=== PATIENT | female | born 1975 | race Two or more races ===

== ENCOUNTER 2021-05-05 10:55 | Outpatient (REF) | payer OTHER, SELFPAY ==
[2021-05-05 12:24] LABS: TSH reflex Free T4 6.87 uIU/mL (0.32-4.0)
[2021-05-05 13:17] LABS: Free T4 (Free Thyroxine) 0.74 ng/dL (0.71-1.85)
== END 2021-05-05 10:56 | disposition home or self-care (01) ==
LOC: HO.LAB 10:55
PROVIDERS: PCP Internal Medicine; Visit Provider Nurse Practitioner Family
DX: E03.9 Hypothyroidism, unspecified (principal); M79.7 Fibromyalgia
CPT/HCPCS: 36415; 84439; 84443

== ENCOUNTER 2021-06-07 09:25 | Outpatient (REF) | payer OTHER, SELFPAY ==
[2021-06-07 10:58] LABS: TSH reflex Free T4 2.64 uIU/mL (0.32-4.0)
== END 2021-06-07 09:26 | disposition home or self-care (01) ==
LOC: HO.LAB 09:25
PROVIDERS: Nurse Practitioner Family; PCP Internal Medicine; Visit Provider Internal Medicine
DX: E03.9 Hypothyroidism, unspecified (principal)
CPT/HCPCS: 36415; 84443

== ENCOUNTER 2021-06-17 07:59 | Outpatient (REF) | payer OTHER, SELFPAY ==
--- NOTE | ~2021-06-17 | XR_ITS ---
EXAMINATION: XR WRIST, LEFT CLINICAL INFORMATION: Pain in left wrist. COMPARISON: None TECHNIQUE: PA, lateral, and oblique views of the left wrist. FINDINGS: There is mild reduction in the first carpometacarpal joint space with periarticular spurring. Rest of carpal bones and intercarpal joint space is maintained normal. No fracture, dislocation or bony erosive changes. The distal radius and ulna appears unremarkable. XR/XR wrist LT 2V IMPRESSION: Mild degenerative changes first carpometacarpal joint.
--- NOTE | ~2021-06-17 | XR_ITS ---
EXAMINATION: XR FOOT, LEFT CLINICAL INFORMATION: Pain in left foot. COMPARISON: None TECHNIQUE: AP, lateral, and oblique views of the left foot. FINDINGS: There is hallux valgus deformity of the left 1st MTP joint. No visible acute fracture or dislocation is seen. The ankle mortise and subtalar joints are normal. There is a small retrocalcaneal spur. XR/XR foot LT 2V IMPRESSION: Small retrocalcaneal enthesophyte. No visible acute fracture or dislocation seen.
[2021-06-17 08:24] LABS: MANUAL DIFF FLAG NO
[2021-06-17 08:53] LABS: Basophils Percent Auto 0.4 % (0-2); Eosinophils Absolute Auto 0.2 X10*3/uL (0.0-0.4); Eosinophils Percent Auto 4.5 % (0-4); Hematocrit 41.2 % (37.0-47.0); Hemoglobin 13.9 g/dl (12.0-16.0); Imm Gran Abs Auto 0.01 X10*3/uL (0.00-0.03); Imm Gran Pct Auto 0.2 % (0.0-0.4); Lymphocytes Absolute Auto 1.9 X10*3/uL (1.2-4.9); Lymphocytes Percent Auto 35.5 % (20-40); Mean Corpuscular HGB Conc 33.7 g/dl (31.0-35.0); Mean Corpuscular Hemoglobin 32.3 pg (27.0-33.0); Mean Corpuscular Volume 95.6 fL (80.0-98.0); Mean Platelet Volume 10.2 fL (9.4-12.3); Monocytes Absolute Auto 0.4 X10*3/uL (0.1-1.2); Monocytes Percent Auto 6.8 % (2-11); Neutrophils Absolute Auto 2.8 x10*3/uL (2.0-8.3); Neutrophils Percent Auto 52.6 % (45-73); Platelet Count 233 X10*3/uL (160-400); Red Blood Count 4.31 X10*6/uL (4.20-5.50); White Blood Count 5.3 X10*3/uL (4.8-10.8)
[2021-06-17 09:14] LABS: Alanine Aminotransferase 18 U/L (0-31); Albumin Level 4.3 g/dL (3.5-5.0); Alkaline Phosphatase 106 U/L (39-117); Anion Gap 12 (12-20); Aspartate Amino Transferase 18 U/L (5-31); Bilirubin Total 0.7 mg/dL (0.0-1.0); Blood Urea Nitrogen 11 mg/dL (9-16); Calcium 9.6 mg/dL (8.4-10.2); Carbon Dioxide 26 mmol/L (22-29); Chloride 107 mmol/L (96-108); Cholesterol 211 mg/dL; Estimated Glomerular Filt Rate > 60; Glucose Fasting 91 mg/dL (60-99); HDL Cholesterol 45 mg/dL; LDL Cholesterol Calculated 144 mg/dl; Potassium 4.4 mmol/L (3.3-5.1); Sodium 141 mmol/L (135-145); Triglycerides 110 mg/dL
[2021-06-17 09:35] LABS: Thyroid Stimulating Hormone 3.15 uIU/mL (0.32-4.0); Vitamin D 25-OH Total 14.9 ng/mL (>30)
[2021-06-19 06:26] LABS: Thyroglobulin Antibodies <1 IU/mL (< or = 1); Thyroid Peroxidase Antibodies 1 IU/mL (<9)
== END 2021-06-17 08:00 | disposition home or self-care (01) ==
LOC: HO.XRAY 07:59
PROVIDERS: PCP Internal Medicine; Visit Provider Internal Medicine
DX: Z00.00 Encounter for general adult medical examination without abnormal findings (principal); M25.532 Pain in left wrist; M79.672 Pain in left foot; E03.9 Hypothyroidism, unspecified; D64.9 Anemia, unspecified; K92.1 Melena; E78.5 Hyperlipidemia, unspecified; E55.9 Vitamin D deficiency, unspecified
CPT/HCPCS: 36415; 73100; 73620; 80053; 80061; 82306; 84443; 85025; 86376; 86800

== ENCOUNTER 2021-06-23 15:17 | Outpatient (REF) | payer OTHER, SELFPAY ==
--- NOTE | ~2021-06-23 | MM_ITS ---
EXAMINATION: MM SCREENING DIGITAL BREAST TOMOSYNTHESIS, BILATERAL CLINICAL INFORMATION: Screening. Asymptomatic. Prior history reduction mammoplasty approximately 10 years ago. Prior [id number]-kcbrq mammography currently unavailable. Age 45. Family history breast cancer, mother. The lifetime risk of breast cancer based on the Tyrer-Cuzick Model is 24%. COMPARISON: None. TECHNIQUE: Digital breast tomosynthesis is performed in both the craniocaudal and mediolateral oblique views along with computer-aided detection (CAD). Synthesized 2D images are generated from the tomosynthesis. FINDINGS: There are scattered areas of fibroglandular density (ACR BI-RADS breast composition Category b). There is minor scarring consistent with the prior history of reduction mammoplasty. There is no significant mass or architectural abnormality. No abnormal calcifications. The axilla are unremarkable. Skin contours are unremarkable. Radiology department staff will attempt to retrieve prior ynm-jp-cgnkv mammography to allow for comparison in an addendum report. MM/MM tomosynthesis screening BI IMPRESSION: No mammographic evidence of malignancy. BI-RADS 2: Benign RECOMMENDATION: -Routine annual mammography screening. -The lifetime risk of breast cancer based on the Tyrer-Cuzick Model is 24%. Additional annual adjunct screening with breast MRI may be of benefit in women with a risk score of 20% or greater. This patient's information was entered into a reminder system with a target due date for their next mammogram.
== END 2021-06-23 15:18 | disposition home or self-care (01) ==
LOC: HO.MAMMO 15:17
PROVIDERS: PCP Internal Medicine; Visit Provider Internal Medicine
DX: Z12.31 Encounter for screening mammogram for malignant neoplasm of breast (principal)
CPT/HCPCS: 77063; 77067

== ENCOUNTER 2021-08-23 10:51 | Outpatient (REF) | payer OTHER, SELFPAY ==
[2021-08-23 12:03] LABS: Baso%MD 0.4 %; Eos%MD 4.8 %; Hematocrit 42.9 % (37.0-47.0); Hemoglobin 14.7 g/dl (12.0-16.0); IG%MD 0.3 %; Lymph%MD 34.6 %; Mean Corpuscular HGB Conc 34.3 g/dl (31.0-35.0); Mean Corpuscular Hemoglobin 31.9 pg (27.0-33.0); Mean Corpuscular Volume 93.1 fL (80.0-98.0); Mean Platelet Volume 10.2 fL (9.4-12.3); Mono%MD 6.6 %; Neut%MD 53.3 %; Platelet Count 269 X10*3/uL (160-400); Red Blood Count 4.61 X10*6/uL (4.20-5.50); White Blood Count 7.2 X10*3/uL (4.8-10.8)
[2021-08-23 13:39] LABS: Atypical Lymph Absolute Manual 0.3 x10*3/uL; Atypical Lymphs Percent Manual 4 % (0-6); Band Neutrophils Percent 1 % (3-5); Eosinophils Absolute Manual 0.2 X10*3/uL (0.0-0.4); Eosinophils Percent Manual 3 % (0-4); Lymphocytes Absolute Manual 2.7 X10*3/uL (1.2-4.9); Lymphocytes Percent Manual 38 % (20-40); Monocytes Absolute Manual 0.5 X10*3/uL (0.1-1.2); Monocytes Percent Manual 7 % (2-11); Neutrophils Absolute Manual 3.5 X10*3/uL (2.0-8.3); Neutrophils Percent Manual 47 % (45-73)
[2021-08-23 13:41] LABS: Platelet Estimate NORMAL (NORMAL); Platelet Morphology Comment NORMAL; RBC Morphology NORMAL
[2021-08-25 07:32] LABS: Immunoglobulin E 16 kU/L (<OR=114)
== END 2021-08-23 10:52 | disposition home or self-care (01) ==
LOC: HO.LAB 10:51
PROVIDERS: PCP Internal Medicine; Visit Provider Internal Medicine
DX: J45.909 Unspecified asthma, uncomplicated (principal)
CPT/HCPCS: 36415; 82785; 85007; 85027; 99202

== ENCOUNTER 2021-09-08 08:56 | Outpatient (REF) | payer OTHER, SELFPAY ==
--- NOTE | 2021-09-08 09:51 | PFT_ITS ---
FLOWS: FEV1 84% of predicted at 2.69 L. FVC 101% of predicted at 3.93 L. FEV1 to FVC ratio of 0.68. No bronchodilator response except in small to medium airways. LUNG VOLUMES: Total lung capacity 101% of predicted at 5.60 L. Residual volume 114% of predicted at 2.16 L. Slow vital capacity 95% of predicted at 3.44 L. Expiratory reserve volume 51% of predicted at 0.63 L. Diffusion capacity is normal. IMPRESSION: Mild obstructive ventilatory defect with no bronchodilator response except in small to medium airways. Decreased expiratory reserve volume suggests extrathoracic restriction likely secondary to abdominal obesity. Luis Ames MD AP/MODL / [id number]
== END 2021-09-08 08:57 | disposition home or self-care (01) ==
LOC: HO.RESP 08:56
PROVIDERS: PCP Internal Medicine; Visit Provider Internal Medicine
DX: J45.909 Unspecified asthma, uncomplicated (principal)
CPT/HCPCS: 94060; 94727; 94729

== ENCOUNTER → 2021-09-21 11:10 | Outpatient (BNVA) | payer OTHER, SELFPAY | PROVIDERS: PCP Internal Medicine; Visit Provider Internal Medicine | DX: J45.909 Unspecified asthma, uncomplicated (principal) | CPT/HCPCS: 99212 ==

== ENCOUNTER 2021-09-29 09:30 | Outpatient (REF) | payer OTHER, SELFPAY ==
[2021-09-29 12:14] LABS: Alanine Aminotransferase 19 U/L (0-31); Albumin Level 4.6 g/dL (3.5-5.0); Alkaline Phosphatase 99 U/L (39-117); Anion Gap 11 (12-20); Aspartate Amino Transferase 18 U/L (5-31); Bilirubin Total 0.6 mg/dL (0.0-1.0); Blood Urea Nitrogen 11 mg/dL (9-16); Calcium 9.6 mg/dL (8.4-10.2); Carbon Dioxide 28 mmol/L (22-29); Chloride 106 mmol/L (96-108); Estimated Glomerular Filt Rate > 60; Glucose Random 86 mg/dL (60-115); Potassium 4.3 mmol/L (3.3-5.1); Sodium 141 mmol/L (135-145); Total Protein 7.3 g/dL (6.5-8.0)
== END 2021-09-29 09:31 | disposition home or self-care (01) ==
LOC: HO.WFDLDS 09:30
PROVIDERS: Visit Provider Physician Assistant
DX: R10.9 Unspecified abdominal pain (principal); K92.1 Melena; K63.5 Polyp of colon
CPT/HCPCS: 36415; 80053; 99202; 99212

== ENCOUNTER 2021-10-14 12:50 | Outpatient (REF) | payer OTHER, SELFPAY ==
--- NOTE | ~2021-10-14 | CT_ITS ---
EXAMINATION: CT ABDOMEN AND PELVIS WITH CONTRAST CLINICAL INFORMATION: Unspecified abdominal pain. COMPARISON: None TECHNIQUE: Multidetector volumetric images were obtained from the superior aspect of the liver through the pubic symphysis following administration 85 mL of Omnipaque 350 intravenous contrast. Sagittal and coronal reformatted images were obtained on the technologist's workstation. Oral contrast: No This CT examination was performed using dose optimization techniques as appropriate, variously including the following: *Automated exposure control *Adjustment of mA and/or kV according to patient size (this includes techniques or standardized protocols for targeted exams where dose is matched to indication/reason for exam; i.e. extremities or head) *Use of iterative reconstruction technique DLP: 608 mGy-cm FINDINGS: LUNG BASES: There is a small left lower lobe pulmonary cyst. Minimal scarring or atelectasis in the lingula. The heart size is normal. LIVER, GALLBLADDER, AND BILIARY TREE: The liver is normal in size, shape, and attenuation. No focal hepatic lesion or biliary ductal dilatation is present. The gallbladder has been surgically removed. PANCREAS: Unremarkable. SPLEEN: Unremarkable. ADRENAL GLANDS: Unremarkable. KIDNEYS AND URETERS: The kidneys are normal in size, shape, and attenuation. No hydronephrosis, hydroureter, or calculi are seen. No perinephric stranding. BLADDER: Unremarkable. GASTROINTESTINAL TRACT: There is moderate stool and gas seen throughout the colon without distention. Oral contrast opacified small bowel loops are normal. The appendix is normal. No inflammatory changes or free fluid are seen. ABDOMINAL WALL: There is a small umbilical hernia containing fat. LYMPH NODES: Normal. VASCULAR: Unremarkable. PELVIC VISCERA: The uterus is not visualized, likely atrophied or removed. No adnexal mass or free fluid is seen. OSSEOUS STRUCTURES: There are bilateral pedicular screws at the L5 and S1 vertebrae with interconnecting rods for an L4 through S1 disc fusion. No aggressive lytic or sclerotic process is seen in lumbar spine or the lower dorsal spine. CT/CT abdomen pelvis w con IMPRESSION: No acute intra-abdominal process seen. Lnnp-dv-owehdako constipation. Gallbladder has been removed. Fleischner guidelines were followed.
[2021-10-14] MEDS: iohexoL 350 MG/ML 100 ML INFUS..BTL IV (15:45)
[2021-10-14] MEDS: Barium Sulfate Oral (Vanilla) 450 ML ORAL.SUSP 900 ML PO (15:45)
== END 2021-10-14 12:51 | disposition home or self-care (01) ==
LOC: HO.CT 12:50
PROVIDERS: PCP Internal Medicine; Visit Provider Nurse Practitioner
DX: R10.9 Unspecified abdominal pain (principal); K92.1 Melena; K63.5 Polyp of colon
CPT/HCPCS: 74177; Q9967

== ENCOUNTER → 2021-10-27 11:34 | Outpatient (BNVA) | payer OTHER, SELFPAY | PROVIDERS: PCP Internal Medicine; Visit Provider Physician Assistant | DX: R14.0 Abdominal distension (gaseous) (principal); K52.9 Noninfective gastroenteritis and colitis, unspecified; K21.9 Gastro-esophageal reflux disease without esophagitis | CPT/HCPCS: 99212 ==

== ENCOUNTER 2021-11-11 09:58 | Outpatient (REF) | payer OTHER, SELFPAY ==
[2021-11-11 12:57] LABS: Thyroid Stimulating Hormone 3.34 uIU/mL (0.32-4.0); Vitamin D 25-OH Total 30.3 ng/mL (>30)
[2021-11-12 16:51] LABS: H Pylori Breath Test Positive (Negative)
== END 2021-11-11 09:59 | disposition home or self-care (01) ==
LOC: HO.LAB 09:58
PROVIDERS: PCP Internal Medicine; Referring Provider Internal Medicine; Visit Provider Physician Assistant
DX: A04.8 Other specified bacterial intestinal infections (principal); E03.9 Hypothyroidism, unspecified; E55.9 Vitamin D deficiency, unspecified
CPT/HCPCS: 36415; 82306; 83013; 84443; 99211

== ENCOUNTER → 2021-11-18 15:55 | Outpatient (BNVA) | payer OTHER, SELFPAY | PROVIDERS: PCP Internal Medicine; Visit Provider Surgery | DX: K42.9 Umbilical hernia without obstruction or gangrene (principal) | CPT/HCPCS: 99202 ==

== ENCOUNTER 2021-12-07 05:51 | Day surgery (SDC) | payer OTHER, SELFPAY ==
[2021-12-01 17:05] VITALS: BMI 36.5
--- NOTE | 2021-12-06 10:36 | HO.ANESPROP2 ---
Documented by User: Gail Welch NP 12/06/21 10:38 HPI - Anesthesia Eval Consult details Narrative: 46yo F for Hernia Repair Umbilical, possible mesh PMFSH Active Problems Active Problems: All Active Problems (Updated 10/27/21 @ 13:54 by Sharmin Gutierrez MD) Umbilical hernia (Acute) Acid reflux (Acute) Bloating (Acute) Chronic diarrhea (Acute) Colon polyps (Acute) Abdominal pain (Acute) Allergic rhinitis (Acute) Allergic asthma (Acute) Hypovitaminosis D (Acute) Insomnia (Acute) Left foot pain (Acute) Left wrist pain (Acute) Bloody stools (Acute) Family history of colon cancer (Acute) Colon polyps (Acute) Physical exam (Acute) Asthma, persistent not controlled (Acute) Difficulty sleeping (Acute) Anxiety and depression (Acute) Fibromyalgia (Acute) Hypothyroid (Acute) Past Medical History Medical History Bloody stools Colon polyps Family history of colon cancer Hypovitaminosis D Insomnia Left foot pain Left wrist pain Physical exam Family History Family History Father Hypothyroid Thyroid cancer Asthma Migraine Mother Breast cancer Surgical History Surgical History History of back surgery History of bilateral breast reduction surgery History of carpal tunnel surgery History of cholecystectomy History of colonoscopy History of hysterectomy Social History Social History Housing: House Alcohol intake: current Alcohol intake frequency: holidays/special occasions only Alcohol type: wine Patient Tobacco Use Status: Never used Tobacco e-Cigarette/Vaping Use: Never Used Second Hand Smoke Exposure: No Use of substances other than those prescribed or required for medical reasons: No Are you DNR?: No Advance Directives: No Advance Directives Information Provided: Yes service: No Current occupational status: unemployed Cognitive needs: No Hearing needs: No Vision needs: No Meds Allergies Allergy/AdvReac Type Severity Reaction Status Date / Time sumatriptan [From IMITREX] Allergy Intermediate rash, Verified 11/18/21 16:03 shortness of breath Exam Exam Date and Time: December 06, 2021 1036 Height,Weight and Vital Signs: Height 5 ft 7 in Weight 105.687 kg Pertinent Lab Results Pertinent Lab Results: Laboratory Tests 08/23/21 09/29/21 11:11 09:35 WBC 7.2 Hgb 14.7 Hct 42.9 Plt Count 269 Sodium 141 Potassium 4.3 Chloride 106 Carbon Dioxide 28 BUN 11 Creatinine 0.77 Narrative Narrative: PFT 09/2021 IMPRESSION:? Mild obstructive ventilatory defect with no bronchodilator response except in small to medium airways.? Decreased expiratory reserve volume suggests extrathoracic restriction likely secondary to abdominal obesity. Assessment and Plan Assessment Anesthesia Assessment: Chart Reviewed Documented by User: Dell Reeves MD 12/07/21 07:25 PMFSH Past Medical History Medical History Bloody stools Colon polyps Family history of colon cancer Hypovitaminosis D Insomnia Left foot pain Left wrist pain Physical exam Family History Family History Father Hypothyroid Thyroid cancer Asthma Migraine Mother Breast cancer Family history of problems with anesthesia: No Surgical History Surgical History History of back surgery History of bilateral breast reduction surgery History of carpal tunnel surgery History of cholecystectomy History of colonoscopy History of hysterectomy History of Problems with Anesthesia: Yes Social History Social History Housing: House Alcohol intake: current Alcohol intake frequency: holidays/special occasions only Alcohol type: wine Patient Tobacco Use Status: Never used Tobacco e-Cigarette/Vaping Use: Never Used Second Hand Smoke Exposure: No Use of substances other than those prescribed or required for medical reasons: No Are you DNR?: No Advance Directives: No Advance Directives Information Provided: Yes service: No Current occupational status: unemployed Cognitive needs: No Hearing needs: No Vision needs: No Meds Allergies Allergy/AdvReac Type Severity Reaction Status Date / Time sumatriptan [From IMITREX] Allergy Intermediate rash, Verified 11/18/21 16:03 shortness of breath Exam Airway Mallampati Class: II TM Dist: >3cm Neck ROM: Full Loose/Missing/Broken Teeth: No Heart: rrr Lungs: clear Assessment and Plan Final Anesthetic Review Family History of Problems with Anesthesia: No History of Problems with Anesthesia: Yes Anesthetic Plan Anesthetic Plan: GA Disposition: Standard PACU
[2021-12-07] VITALS (13 sets, daily range): BP systolic 107–126; BP diastolic 70–76; PULSE 66–84; RESP 16–18; TEMP 36.4–36.5; O2SAT 97–100
[2021-12-07] MEDS: Lactated Ringers 1,000 ML 100 ML IVCONT (06:31)
--- NOTE | 2021-12-07 07:08 | MHC.SHP ---
Pre-Procedural Eval Section A Date of Service: 12/07/21 The patient is an INPATIENT: No Changes since office visit: No Cold of Flu in the past 2 weeks, No New Medical Problems, No Changes in Medication and No Patient answered all questions The History & Physical has been completed within 30 days and I have reviewed it.: Yes Section B Chief Complaint: Umbilical hernia without obstruction or gangrene Allergies: Allergies Allergy/AdvReac Type Severity Reaction Status Date / Time sumatriptan [From IMITREX] Allergy Intermediate rash, Verified 11/18/21 16:03 shortness of breath Plan I have reviewed the history and physical and performed a pertinent physical examination on my patient. No changes have occurred unless specified.
--- NOTE | 2021-12-07 08:00 | W.PM.OPN ---
Operative Note Operative Note Date of Service: 12/07/21 Narrative: Preop diagnosis: Umbilical hernia Postop diagnosis : Umbilical hernia Procedure: Repair of umbilical hernia Surgeon: Yvon Brice MD advertising assistant manager: CORETTA Mcclain The patient is a 46-year-old female umbilical pain, and note of a small fat-containing umbilical hernia on CT scan. She wanted to proceed with repair of this Hernia. She understood the technique of the procedure as well as the risks, benefits, and alternatives. She was brought to the operating room placed supine under general anesthesia via endotracheal tube. The abdomen is prepped and draped in the usual sterile fashion. A surgical time-out was done. The patient received cefazolin 2 g IV preoperatively I infiltrated the planned line of incision using lidocaine 1%. I made a supraumbilical and transverse incision in a curvilinear fashion using a blade 15. This was carried down through the full-thickness of the skin and subcutaneous fat ache electrocautery. We proceeded to dissect the umbilicus as a flap off of the fascia with careful sharp dissection with electrocautery as well as Metzenbaum scissors. By doing so I was able to visualize the hernia. This was fat containing. I proceeded to gently dissect this hernia contents off of the rest of subcutaneous layer down to the fascial defect. I dssected the fine adhesions from the fascial defect until I was able to completely reduce the hernia. This hernia defect was less than 1 cm so I decided not to use a mesh. Closed this defect with a ckhawj-wa-upnai Maxon 1 stitch. I applied Dexon 3-0 sutures to tack the umbilicus to the fascia to re-create the dimple. The skin was closed with a running cuticular Dexon 4-0 stitch. The area was infiltrated with Marcaine 0.5% for postop analgesia. Dressings were applied. The procedure was then completed. The patient tolerated the procedure well. There were no immediate complications. Final counts of sponges and instruments were correct. Estimated blood loss was less than 5 cc . The patient was extubated without difficulty and transferred to the recovery room with stable vital signs.
[2021-12-07] MEDS: fentaNYL citrate/PF 100 MCG/2 ML VIAL 25 MCG IVPUSH ×4 (08:32→08:56)
[2021-12-07] MEDS: oxyCODONE HCl Immed Release 5 MG TABLET PO (08:53)
== END 2021-12-07 10:00 | disposition home or self-care (01) ==
PROVIDERS: PCP Internal Medicine; Visit Provider Surgery
PROC: (CPT 49585; principal; 2021-12-07 07:30)
DX: K42.9 Umbilical hernia without obstruction or gangrene (principal); K66.0 Peritoneal adhesions (postprocedural) (postinfection); E55.9 Vitamin D deficiency, unspecified; Z79.899 Other long term (current) drug therapy; Z88.8 Allergy status to other drugs, medicaments and biological substances; Z90.49 Acquired absence of other specified parts of digestive tract
CPT/HCPCS: 49585; J0690; J1100; J2250; J2405; J2795; J3010

== ENCOUNTER → 2021-12-20 13:32 | Outpatient (BNVA) | payer OTHER, SELFPAY | PROVIDERS: PCP Internal Medicine; Visit Provider Surgery | DX: K42.9 Umbilical hernia without obstruction or gangrene (principal); Z80.3 Family history of malignant neoplasm of breast | CPT/HCPCS: 99212 ==

== ENCOUNTER → 2022-01-20 10:46 | Outpatient (BNVA) | payer OTHER, SELFPAY | PROVIDERS: PCP Internal Medicine; Visit Provider Internal Medicine | DX: J45.909 Unspecified asthma, uncomplicated (principal); K21.9 Gastro-esophageal reflux disease without esophagitis | CPT/HCPCS: 99212 ==

== ENCOUNTER 2022-06-28 08:14 | Outpatient (REF) | payer OTHER, SELFPAY ==
--- NOTE | ~2022-06-28 | XR_ITS ---
EXAMINATION: XR WRIST, LEFT CLINICAL INFORMATION: Pain COMPARISON: Wrist radiographs 06/17/2021 TECHNIQUE: PA, lateral, and oblique views of the left wrist. FINDINGS: No acute fracture or dislocation. Moderate degenerative changes the first carpometacarpal joint with loss of joint space progressed from prior. Soft tissues are unremarkable. XR/XR wrist LT 2V IMPRESSION: 1. Moderate degenerative changes the first carpometacarpal joint with loss of joint space progressed from prior. 2. No acute fracture or dislocation.
--- NOTE | ~2022-06-28 | XR_ITS ---
EXAMINATION: XR FOOT, LEFT CLINICAL INFORMATION: Pain COMPARISON: Foot radiographs 06/17/2021 TECHNIQUE: Three views of the left foot. FINDINGS: No acute fracture or dislocation. Joint spaces are maintained. Achilles tendon enthesopathy with thickening of the Achilles tendon at the tendinous insertion which could be seen in the setting of tendinopathy. No joint effusion. XR/XR foot LT 2V IMPRESSION: Achilles tendon enthesopathy with thickening of the Achilles tendon at the tendinous insertion which could be seen in the setting of tendinopathy. MRI could be obtained for further characterization if clinically indicated.
--- NOTE | ~2022-06-28 | XR_ITS ---
EXAMINATION: XR KNEE, RIGHT CLINICAL INFORMATION: Reason for Exam M25.561 - Pain in right knee COMPARISON: None TECHNIQUE: 2 views of the knee FINDINGS: No acute fracture or dislocation. Joint spaces are maintained. No joint effusion. Soft tissues are unremarkable. XR/XR knee RT 2V IMPRESSION: * No acute osseous abnormality.
[2022-06-28 08:29] LABS: MANUAL DIFF FLAG NO
[2022-06-28 08:42] LABS: Basophils Percent Auto 0.4 % (0-2); Eosinophils Absolute Auto 0.2 X10*3/uL (0.0-0.4); Eosinophils Percent Auto 3.4 % (0-4); Hematocrit 41.4 % (37.0-47.0); Hemoglobin 14.5 g/dl (12.0-16.0); Imm Gran Abs Auto 0.01 X10*3/uL (0.00-0.03); Imm Gran Pct Auto 0.2 % (0.0-0.4); Lymphocytes Absolute Auto 1.8 X10*3/uL (1.2-4.9); Lymphocytes Percent Auto 33.3 % (20-40); Mean Corpuscular Hemoglobin 32.8 pg (27.0-33.0); Mean Corpuscular Volume 93.7 fL (80.0-98.0); Monocytes Absolute Auto 0.3 X10*3/uL (0.1-1.2); Monocytes Percent Auto 5.8 % (2-11); Neutrophils Percent Auto 56.9 % (45-73); Platelet Count 229 X10*3/uL (160-400); Red Blood Count 4.42 X10*6/uL (4.20-5.50); Red Cell Distribution Width 12.3 % (11.0-16.0); White Blood Count 5.3 X10*3/uL (4.8-10.8)
[2022-06-28 09:38] LABS: Alanine Aminotransferase 24 U/L (0-31); Albumin Level 4.6 g/dL (3.5-5.0); Alkaline Phosphatase 104 U/L (39-117); Anion Gap 12 (12-20); Aspartate Amino Transferase 23 U/L (5-31); Bilirubin Total 0.7 mg/dL (0.0-1.0); Blood Urea Nitrogen 10 mg/dL (9-16); Calcium 9.7 mg/dL (8.4-10.2); Carbon Dioxide 27 mmol/L (22-29); Chloride 107 mmol/L (96-108); Cholesterol 223 mg/dL; Estimated Glomerular Filt Rate > 60; Glucose Fasting 95 mg/dL (60-99); HDL Cholesterol 46 mg/dL; LDL Cholesterol Calculated 153 mg/dl; Potassium 4.3 mmol/L (3.3-5.1); Sodium 142 mmol/L (135-145); Total Protein 7.2 g/dL (6.5-8.0); Triglycerides 123 mg/dL
[2022-06-28 10:21] LABS: Folate 7.6 ng/mL (> or = 4.0); Thyroid Stimulating Hormone 4.06 uIU/mL (0.32-4.0); Vitamin B12 452 pg/mL (200-900); Vitamin D 25-OH Total 18.5 ng/mL (>30)
== END 2022-06-28 08:15 | disposition home or self-care (01) ==
LOC: HO.LAB 08:14
PROVIDERS: PCP Internal Medicine; Visit Provider Internal Medicine
DX: M25.532 Pain in left wrist (principal); M25.561 Pain in right knee; M79.672 Pain in left foot; E55.9 Vitamin D deficiency, unspecified; E78.5 Hyperlipidemia, unspecified; E03.9 Hypothyroidism, unspecified; D64.9 Anemia, unspecified; J45.998 Other asthma; M79.7 Fibromyalgia; E53.8 Deficiency of other specified B group vitamins
CPT/HCPCS: 36415; 73100; 73560; 73620; 80053; 80061; 82306; 82607; 82746; 84443; 85025

== ENCOUNTER 2022-07-09 10:23 | Outpatient (REF) | payer OTHER, SELFPAY ==
--- NOTE | ~2022-07-09 | MM_ITS ---
EXAMINATION: MM SCREENING DIGITAL BREAST TOMOSYNTHESIS, BILATERAL CLINICAL INFORMATION: Screening. Asymptomatic. Prior history reduction mammoplasty approximately 11 years ago. The lifetime risk of breast cancer based on the Tyrer-Cuzick Model is 13%. COMPARISON: Mammography: 06/23/2021 (new baseline) TECHNIQUE: Digital breast tomosynthesis is performed in both the craniocaudal and mediolateral oblique views along with computer-aided detection (CAD). Synthesized 2D images are generated from the tomosynthesis. FINDINGS: There are scattered areas of fibroglandular density (ACR BI-RADS breast composition Category b). Parenchymal pattern is similar to prior new baseline exam. There is minor scarring consistent with the prior history reduction mammoplasty. No interval architectural abnormality or developing density. There are no significant masses, abnormal calcifications, or other abnormalities. The axilla and skin contours are unremarkable. No significant changes. MM/MM tomosynthesis screening BI IMPRESSION: No mammographic evidence of malignancy. ASSESSMENT: BI-RADS 2: Benign RECOMMENDATION: Routine annual mammography screening. This patient's information was entered into a reminder system with a target due date for their next mammogram.
== END 2022-07-09 10:24 | disposition home or self-care (01) ==
LOC: HO.MAMMO 10:23
PROVIDERS: PCP Internal Medicine; Visit Provider Internal Medicine
DX: Z12.31 Encounter for screening mammogram for malignant neoplasm of breast (principal)
CPT/HCPCS: 77063; 77067

== ENCOUNTER 2022-07-19 09:21 | Outpatient (RCR) | payer OTHER, SELFPAY ==
--- NOTE | 2022-08-19 13:19 | MHC.OT.DC ---
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
== END 2022-08-19 13:20 | disposition home or self-care (01) ==
LOC: HO.OT 09:21
PROVIDERS: PCP Internal Medicine; Visit Provider Internal Medicine
DX: M25.532 Pain in left wrist (principal)
CPT/HCPCS: 29130; 97110; 97166; 97760

== ENCOUNTER → 2022-07-20 10:42 | Outpatient (BNVA) | payer OTHER, SELFPAY | PROVIDERS: PCP Internal Medicine; Visit Provider Internal Medicine | DX: J45.909 Unspecified asthma, uncomplicated (principal) | CPT/HCPCS: 99212 ==

== ENCOUNTER 2022-12-20 15:00 | Outpatient (AMB) | payer OTHER, SELFPAY ==
[2022-12-20 15:03] VITALS: BP 100/72; PULSE 81; O2SAT 99; BMI 35.9
--- NOTE | 2022-12-20 15:03 | MHC.PC.OV ---
Vital Signs 12/20/22 15:03 Height 5 ft 7 in Weight 229 lb BMI 35.9 BP 100/72 Blood Pressure Location Lt brachial Position Sitting Pulse 81 Pulse Source Pulse Oximeter Pulse Oximetry (%) 99 Oxygen Delivery Method Room Air Intake Visit Reasons: thyroid Intake Note: Patient here for a follow up thyroid, c/o left side head discomfort Precision Assembler Required: No Accompanied by: Self / Same As Patient Allergies sumatriptan [From IMITREX] Allergy (Intermediate, Verified 12/20/22 15:13) rash, shortness of breath morphine Adverse Reaction (Severe, Verified 12/20/22 15:13) Migraine Medication List - Last Reconciled 12/20/22 by Sharmin Gutierrez MD bismuth subsalicylate (Bismuth) 2 tabs PO QID 14 days budesonide-formoterol 160-4.5 mcg/actuation (Symbicort) 2 puffs inhalation BID bupropion HCl 150 mg PO QAM 90 days cholecalciferol (vitamin D3) 50 mcg PO DAILY 90 days cholestyramine (with sugar) 4 gram 4 grams PO BID 30 days gabapentin 600 mg PO TID 90 days levothyroxine 88 mcg PO DAILY 90 days loperamide (Imodium A-D) 2 mg PO Q6H PRN montelukast 10 mg PO DAILY omeprazole 40 mg PO DAILY trazodone 100 mg PO BEDTIME PRN 90 days Ventolin HFA 90 mcg/actuation (albuterol sulfate) 2 puffs inhalation Q6H PRN 30 days NS Tobacco use date assessed: 06/28/22 Dental Screening Dental Screen Date: 12/20/22 Did you have a dental visit in the last 12 months?: Yes Did you have a dental problem in the last 6 months where you did not have access to dental care?: No Was dental information given to patient?: Patient has dentist HPI HPI Comments History of Present Illness Details This is 47-year-old female with moderate recurrent major depression, hypothyroidism, chronic GERD and moderate asthma that comes today for follow-up on her conditions. Depression stable with bupropion. Last TSH was mildly elevated and she was supposed to repeat lab in 6 weeks which has not happen. She will repeat labs this week. GERD stable with PPIs. Asthma well controlled with longstanding inhaler. She use rescue inhaler few times a month. Complains of occasional headaches. PFSH Medical History (Updated 12/20/22 @ 15:42 by Sharmin Gutierrez MD) Family history of breast cancer Hypovitaminosis D Insomnia Left foot pain Left wrist pain Bloody stools Family history of colon cancer Colon polyps Physical exam Surgical History History of umbilical hernia repair (~12/07/21) History of cholecystectomy History of carpal tunnel surgery History of colonoscopy History of bilateral breast reduction surgery History of back surgery History of hysterectomy Family History Father Hypothyroid Thyroid cancer Asthma Migraine Mother Breast cancer Social History Housing: House Alcohol intake: current Alcohol intake frequency: holidays/special occasions only Alcohol type: wine Patient Tobacco Use Status: Never used Tobacco e-Cigarette/Vaping Use: Never Used Second Hand Smoke Exposure: No service: No Current occupational status: unemployed Cognitive needs: No Hearing needs: No Vision needs: No Questionnaire Thrive Questionnaire Date Thrive assessed: 06/28/22 ALIZA-7 AMB Questionnaire ALIZA-7 Date ALIZA - 7 assessed: 06/28/22 Source: Developed by Drs. Donn Mckeon, Rebecca Villalta, Meek Ricardo and colleagues, with an educational darrel from [employer]. Review of Systems Const All systems reviewed & are unremarkable except as noted in HPI and below Eyes Reports no additional complaints, Denies change in vision and Denies other visual disturbances Card Denies chest pain at rest, Denies chest pain with activity, Denies edema, Denies irregular heart rhythm, Denies claudication, Denies dyspnea, Denies dyspnea on exertion, Denies orthopnea, Denies paroxysmal nocturnal dyspnea and Denies slow heart rate Resp Denies cough, Denies dyspnea and Denies dyspnea on exertion GI Denies abdominal pain, Denies change in bowel habits, Denies excessive flatus, Denies nausea and Denies vomiting Denies urinary incontinence, Denies urinary hesitancy and Denies urinary urgency Musc Denies abnormal gait, Denies atrophy, Denies deformity and Denies limited range of motion Skin/Breast Denies bleeding lesions, Denies changing lesions and Denies rash Neuro Denies abnormal gait and Denies lack of coordination Physical exam (Primary Care) Vital Signs: Last Vital Signs Pulse 81 12/20/22 15:03 BP 100/72 12/20/22 15:03 Pulse Ox 99 12/20/22 15:03 Oxygen Delivery Method Room Air 12/20/22 15:03 BMI result Body Mass Index 35.9 Tobacco/Smoking Status: Tobacco use Status Tobacco use date assessed 06/28/22 12/20/22 15:06 Patient Tobacco Use Status Never used Tobacco 12/20/22 15:06 e-Cigarette/Vaping Use Never Used 12/20/22 15:06 Thrive Assessment: Date of Thrive Assessment Date Thrive assessed 06/28/22 12/20/22 15:06 Eyes General: appearance normal, both eyes and all related structures Eyelids: Yes eyelids normal Conjunctivae: conjunctivae normal Neck Neck: Yes normal visual inspection and Yes supple Resp Effort & Inspection: normal respiratory effort Auscultation: clear to auscultation bilaterally Cardio Jugular venous distension: no JVD Rate: regular rate Rhythm: regular rhythm Heart sounds: S1 normal heart sound present and S2 normal heart sound present Extrem General: Yes full ROM Office Procedures Flu Questionnaire Does the patient have a severe egg allergy?: No Immunizations flu vacc [id number] 6mos up(PF) 60 mcg(15 mcgx4)/0.5 mL IM syringe Performing Provider: Sharmin Gutierrez MD [place] [facility] [facility] [place] [facility] Documented (not given) by: MIRTHA Powell on 12/20/22 15:06 Reason Not Given: Patient Refused Assessment and Plan Assessment & Plan (1) Moderate recurrent major depression: Code(s): F33.1 - Major depressive disorder, recurrent, moderate Plan: Continue bupropion. (2) Hypothyroid: Comment: 2016 Code(s): E03.9 - Hypothyroidism, unspecified Plan: Repeat TSH. Continue levothyroxine. (3) Chronic GERD: Code(s): K21.9 - Gastro-esophageal reflux disease without esophagitis Plan: Continue PPIs. (4) Moderate asthma: Code(s): J45.909 - Unspecified asthma, uncomplicated Plan: Continue Symbicort. Orders: Orders Influenza [id number] Immunization Today Z23 - Encounter for immunization Thyroid Stimulating Hormone Today E03.9 - Hypothyroidism, unspecified Medications: Refilled gabapentin 600 mg PO TID 90 days 270 tabs 0RF M79.7 - Fibromyalgia Coding Level of Care Code Est Pt Level 4 (66930) Diagnoses Moderate recurrent major depression F33.1 Hypothyroid E03.9 Chronic GERD K21.9 Moderate asthma J45.909 Time Spent (min) 22
== END 2022-12-20 15:22 | disposition home or self-care (01) ==
PROVIDERS: PCP Internal Medicine; Visit Provider Internal Medicine
DX: E03.9 Hypothyroidism, unspecified (principal); F33.1 Major depressive disorder, recurrent, moderate; K21.9 Gastro-esophageal reflux disease without esophagitis; J45.909 Unspecified asthma, uncomplicated
CPT/HCPCS: 99214

== ENCOUNTER 2022-12-27 11:29 | Outpatient (REF) | payer OTHER, SELFPAY ==
[2022-12-27 13:50] LABS: Thyroid Stimulating Hormone 3.15 uIU/mL (0.32-4.0)
== END 2022-12-27 11:30 | disposition home or self-care (01) ==
LOC: HO.LAB 11:29
PROVIDERS: PCP Internal Medicine; Visit Provider Internal Medicine
DX: E03.9 Hypothyroidism, unspecified (principal)
CPT/HCPCS: 36415; 84443

== ENCOUNTER 2023-01-11 10:38 | Outpatient (AMB) | payer OTHER, SELFPAY ==
[2023-01-11 11:24] VITALS: BP 100/72; PULSE 76; O2SAT 99; BMI 36.2
--- NOTE | 2023-01-11 11:24 | A.OFFVIS_ITS ---
Intake Vital Signs 01/11/23 11:24 Height 5 ft 7 in Weight 231 lb BMI 36.2 BP 100/72 Blood Pressure Location Lt brachial Position Sitting Pulse 76 Pulse Source Pulse Oximeter Pulse Oximetry (%) 99 Oxygen Delivery Method Room Air Intake Visit Reasons: Asthma Intake Note: pt is here for follow up and states here breathing is not well, last night was n ot good, coughing a lot, feels like she is starting with something. 2 weeks ago, she had something and now it is starting again E Learning Manager Required: No Allergies sumatriptan [From IMITREX] Allergy (Intermediate, Verified 01/11/23 11:28) rash, shortness of breath morphine Adverse Reaction (Severe, Verified 01/11/23 11:28) Migraine Medication List - Last Reconciled 01/11/23 by Gary Schmidt MD bismuth subsalicylate (Bismuth) 2 tabs PO QID 14 days budesonide-formoterol 160-4.5 mcg/actuation (Symbicort) 2 puffs inhalation BID bupropion HCl 150 mg PO QAM 90 days cholecalciferol (vitamin D3) 50 mcg PO DAILY 90 days cholestyramine (with sugar) 4 gram 4 grams PO BID 30 days gabapentin 600 mg PO TID 90 days levothyroxine 88 mcg PO DAILY 90 days loperamide (Imodium A-D) 2 mg PO Q6H PRN montelukast 10 mg PO DAILY omeprazole 40 mg PO DAILY Ventolin HFA 90 mcg/actuation (albuterol sulfate) 2 puffs inhalation Q6H PRN NS Do you need a note to return to daycare/school/sports/work: No HPI Asthma HPI Details 47 YEARS OLD FEMALE IS A CASE OF BRONCHI AL ASTHMA, AND ALLERGIC RHINITIS. COMING OF TO 6 MONTHS FOR FOLLOW-UP. COMPLAINS OF FREQUENT BOUTS OF NASAL CONGESTION WITH INCREASED COUGH FEELING OF CHEST CONGESTION. SHE HAD A SIMILAR BOUT ABOUT 2 WEEKS AGO, AND CLAIMS THAT SINCE LAST NIGHT SHE IS HAVING THE SAME FEELING. HOWEVER SHE HAS HAD NO ACTIVE RESPIRATORY INFECTION, . SHE CAN WALK AROUND WITHOUT MUCH PROB MOHAMUD SHE IS NONSMOKER [facility] Medical History Family history of breast cancer Hypovitaminosis D Insomnia Left foot pain Left wrist pain Bloody stools Family history of colon cancer Colon polyps Physical exam Surgical History History of umbilical hernia repair (~12/07/21) History of cholecystectomy History of carpal tunnel surgery History of colonoscopy History of bilateral breast reduction surgery History of back surgery History of hysterectomy Family History Father Hypothyroid Thyroid cancer Asthma Migraine Mother Breast cancer Social History Housing: House Alcohol intake: current Alcohol intake frequency: holidays/special occasions only Alcohol type: wine Patient Tobacco Use Status: Never used Tobacco e-Cigarette/Vaping Use: Never Used Second Hand Smoke Exposure: No service: No Current occupational status: unemployed Cognitive needs: No Hearing needs: No Vision needs: No Review of Systems Const All systems reviewed & are unremarkable except as noted in HPI and below Eyes Reports no additional complaints, Denies change in vision and Reports other visual disturbances Card Reports chest pain at rest, Reports chest pain with activity, Denies edema, Denies irregular heart rhythm, Denies claudication, Reports dyspnea, Reports dyspnea on exertion, Denies orthopnea, Denies paroxysmal nocturnal dyspnea and Denies slow heart rate Resp Reports cough, Reports dyspnea, Reports dyspnea on exertion and Reports wheezing (Almost on daily basis) GI Reports no additional complaints and Reports nausea Reports no additional complaints Musc Reports no additional complaints and Reports back pain (Mild) Skin/Breast Reports system reviewed and no additional complaints, except as documented Neuro Reports no additional complaints Psych Reports no additional complaints Aller/Immun Reports wheezing (Almost on daily basis) Physical Exam Vital Signs: Last Vital Signs Pulse 76 01/11/23 11:24 BP 100/72 01/11/23 11:24 Pulse Ox 99 01/11/23 11:24 Oxygen Delivery Method Room Air 01/11/23 11:24 BMI result Body Mass Index 36.2 Const General: healthy appearing, comfortable, no acute distress, alert and awake Orientation/consciousness: patient oriented x3 HEENT Head: Yes normal to inspection General nose exam: No nasal polyps present, No nasal discharge present and Other nasal findings present (DNS to left, mild nasal congestion) Face and sinus: Yes sinuses nontender Mouth: oropharynx normal Throat: Yes posterior oropharynx normal Eyes General: appearance normal, both eyes and all related structures Neck Neck: Yes normal visual inspection, Yes no lymphadenopathy, Yes trachea midline and Yes no JVD Thyroid: Thyroid normal Chest Chest palpation & inspection: normal inspection of the chest, normal palpation of entire chest wall and no tenderness Resp Effort & Inspection: normal respiratory effort Auscultation: clear to auscultation bilaterally, no rhonchi and no wheezes Cardio Palpation: normal PMI Rate: regular rate Rhythm: regular rhythm Heart sounds: no gallops and no murmurs Peripheral pulses: Peripheral pulses 2+ throughout GI Palpation (GI): Soft to palpation, nontender, No hepatosplenomegaly present and no masses Auscultation: normal bowel sounds Back/Spine/Pelvis Thoracic/Lumbar Spine: thoracic and lumbar spine normal to inspection Skin General skin exam: no rashes or lesions noted Neuro General: patient oriented x3 and no focal motor deficits Cranial nerves: Yes CN's II-XII intact bilaterally Extrem General: Yes normal to inspection, Yes no clubbing, cyanosis or edema and Yes no calf tenderness Psych Appearance: grossly normal and well kempt Speech and movement: Normal speech and movement present Assessment & Plan Assessment & Plan (1) Allergic rhinitis: Comment: Same as under Br. Asthma . Also may use OTC , Anti-histaminics such as Claritin 10 mg po , and Folnase 2 sprays in each Nare daily . She is also on montelukast 10 mg daily Code(s): J30.9 - Allergic rhinitis, unspecified (2) Allergic asthma: Comment: This patient has chronic allergic bronchial asthma, Her allergens are, usual environmental agents, including dogs that she has at home. One previous CBC result shows eosinophilia of 4.5%.but last CBC on 08/23/21 showed Eiosiniphil count only 2 % Plan : Patient was educated in great detail, about allergic bronchial asthma/ rhinitis , and importance of avoidance of exposure to allergens. [place] : Continue Symbicort 160-4.52 puffs b.i.d. and Albuterol HfA 2 puffs q 4-6 Hrs PRN Also continue Montelukast 10 mg daily . Revisit q.4 months and as needed. Code(s): J45.909 - Unspecified asthma, uncomplicated Coding Level of Care Code Est Pt Level 3 (01211) Diagnoses Allergic rhinitis J30.9 Allergic asthma J45.909
== END 2023-01-11 11:46 | disposition home or self-care (01) ==
PROVIDERS: PCP Internal Medicine; Visit Provider Internal Medicine
DX: J30.9 Allergic rhinitis, unspecified (principal); J45.909 Unspecified asthma, uncomplicated
CPT/HCPCS: 99213

== ENCOUNTER → 2023-01-11 10:38 | Outpatient (BNVA) | payer OTHER, SELFPAY | PROVIDERS: Visit Provider Internal Medicine | DX: J45.909 Unspecified asthma, uncomplicated (principal) | CPT/HCPCS: 99212 ==

== ENCOUNTER 2023-05-17 11:05 | Outpatient (AMB) | payer OTHER, SELFPAY ==
[2023-05-17 11:16] VITALS: BP 102/70; PULSE 67; O2SAT 98; BMI 36.3
--- NOTE | 2023-05-17 11:16 | MHC.OFFVIS ---
Intake Vital Signs 05/17/23 11:16 Height 5 ft 7 in Weight 231 lb 7.766 oz BMI 36.3 BP 102/70 Blood Pressure Location Lt brachial Position Sitting Pulse 67 Pulse Source Pulse Oximeter Pulse Oximetry (%) 98 Oxygen Delivery Method Room Air Intake Visit Reasons: Asthma Intake Note: pt is here for follow up and states she is coughing a lot and also, she caught covid again about a month ago. She feels a lot of congestion in her chest. 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 Required: No Allergies sumatriptan [From IMITREX] Allergy (Intermediate, Verified 05/17/23 11:42) rash, shortness of breath morphine Adverse Reaction (Severe, Verified 05/17/23 11:42) Migraine Medication List - Last Reconciled 05/17/23 by Gary Schmidt MD bismuth subsalicylate (Bismuth) 2 tabs PO QID 14 days budesonide-formoterol 160-4.5 mcg/actuation (Symbicort) 2 puffs inhalation BID bupropion HCl 150 mg PO QAM 90 days cholecalciferol (vitamin D3) 50 mcg PO DAILY 90 days cholestyramine (with sugar) 4 gram 4 grams PO BID 30 days fluticasone propionate 50 mcg/actuation (Flonase Allergy Relief) 2 sprays intranasal DAILY 30 days gabapentin 600 mg PO TID 90 days levothyroxine 88 mcg PO DAILY 90 days loperamide (Imodium A-D) 2 mg PO Q6H PRN montelukast 10 mg PO DAILY omeprazole 40 mg PO DAILY Ventolin HFA 90 mcg/actuation (albuterol sulfate) 2 puffs inhalation Q6H PRN NS Do you need a note to return to daycare/school/sports/work: No HPI Asthma HPI Details 47 years old female, has been treated for chronic allergic rhinitis and chronic bronchial asthma. She has been stable on her usual regimen which includes Symbicort 160-4.52 puffs b.i.d., Flonase nasal spray, Ventolin 2 puffs Q 6 hours as needed. Now she had acute COVID infection bout 3-4 weeks ago, recovered at home. But subsequently she has persistent cough which is very bothersome. During the past 1 week she feels little feverish . Cough is becoming productive of yellowish phlegm. And she has increased intermittent wheezing. [facility] Medical History (Updated 05/17/23 @ 11:49 by Gary Schmidt MD) Bronchitis Post covid-19 condition, unspecified Family history of breast cancer Hypovitaminosis D Insomnia Left foot pain Left wrist pain Bloody stools Family history of colon cancer Colon polyps Physical exam Surgical History History of umbilical hernia repair (~12/07/21) History of cholecystectomy History of carpal tunnel surgery History of colonoscopy History of bilateral breast reduction surgery History of back surgery History of hysterectomy Family History Father Hypothyroid Thyroid cancer Asthma Migraine Mother Breast cancer Social History Housing: House Alcohol intake: current Alcohol intake frequency: holidays/special occasions only Alcohol type: wine Patient Tobacco Use Status: Never used Tobacco e-Cigarette/Vaping Use: Never Used Second Hand Smoke Exposure: No service: No Current occupational status: unemployed Cognitive needs: No Hearing needs: No Vision needs: No Review of Systems Const All systems reviewed & are unremarkable except as noted in HPI and below Eyes Reports no additional complaints, Denies change in vision and Reports other visual disturbances Card Reports chest pain at rest, Reports chest pain with activity, Denies edema, Denies irregular heart rhythm, Denies claudication, Reports dyspnea, Reports dyspnea on exertion, Denies orthopnea, Denies paroxysmal nocturnal dyspnea and Denies slow heart rate Resp Reports cough, Reports dyspnea, Reports dyspnea on exertion and Reports wheezing (Almost on daily basis) GI Reports no additional complaints and Reports nausea Reports no additional complaints Musc Reports no additional complaints and Reports back pain (Mild) Skin/Breast Reports system reviewed and no additional complaints, except as documented Neuro Reports no additional complaints Psych Reports no additional complaints Aller/Immun Reports wheezing (Almost on daily basis) Physical Exam Vital Signs: Last Vital Signs Pulse 67 05/17/23 11:16 BP 102/70 05/17/23 11:16 Pulse Ox 98 05/17/23 11:16 Oxygen Delivery Method Room Air 05/17/23 11:16 BMI result Body Mass Index 36.3 Const General: healthy appearing, comfortable, no acute distress, alert and awake Orientation/consciousness: patient oriented x3 HEENT Head: Yes normal to inspection General nose exam: No nasal polyps present, No nasal discharge present and Other nasal findings present (DNS to left, mild nasal congestion) Face and sinus: Yes sinuses nontender Mouth: oropharynx normal Throat: Yes posterior oropharynx normal Eyes General: appearance normal, both eyes and all related structures Neck Neck: Yes normal visual inspection, Yes no lymphadenopathy, Yes trachea midline and Yes no JVD Thyroid: Thyroid normal Chest Chest palpation & inspection: normal inspection of the chest, normal palpation of entire chest wall and no tenderness Resp Effort & Inspection: normal respiratory effort Auscultation: clear to auscultation bilaterally, no rhonchi and no wheezes Cardio Palpation: normal PMI Rate: regular rate Rhythm: regular rhythm Heart sounds: no gallops and no murmurs Peripheral pulses: Peripheral pulses 2+ throughout GI Palpation (GI): Soft to palpation, nontender, No hepatosplenomegaly present and no masses Auscultation: normal bowel sounds Back/Spine/Pelvis Thoracic/Lumbar Spine: thoracic and lumbar spine normal to inspection Skin General skin exam: no rashes or lesions noted Neuro General: patient oriented x3 and no focal motor deficits Cranial nerves: Yes CN's II-XII intact bilaterally Extrem General: Yes normal to inspection, Yes no clubbing, cyanosis or edema and Yes no calf tenderness Psych Appearance: grossly normal and well kempt Speech and movement: Normal speech and movement present Assessment & Plan Assessment & Plan (1) Allergic rhinitis: Comment: She has history of chronic allergic rhinitis which flares up at the change of weather. Usually has remained well controlled with ongoing medical regimen. Code(s): J30.9 - Allergic rhinitis, unspecified Plan: May use OTC , Anti-histaminics such as Claritin 10 mg po , and Folnase 2 sprays in each Nare daily . She is also on montelukast 10 mg daily (2) Allergic asthma: Comment: This patient has chronic allergic bronchial asthma, Her allergens are, usual environmental agents, including dogs that she has at home. One previous CBC result shows eosinophilia of 4.5%.but last CBC on 08/23/21 showed Eiosiniphil count only 2 % Code(s): J45.909 - Unspecified asthma, uncomplicated Plan: TX : Continue Symbicort 160-4.52 puffs b.i.d. and Albuterol HfA 2 puffs q 4-6 Hrs PRN Also continue Montelukast 10 mg daily . Revisit q.4 months and as needed. (3) Post covid-19 condition, unspecified: Comment: She recovered from COVID at home for 4 weeks ago, .still has residual cough Code(s): U09.9 - Post COVID-19 condition, unspecified Plan: see under Bronchitis (4) Bronchitis: Comment: Patient seems to have tracheobronchitis, May be post COVID. Code(s): J40 - Bronchitis, not specified as acute or chronic Plan: Empirically treated with doxycycline 100 b.i.d. for 10 days Also steam inhalation 2 or 3 times a day. May use expectorant such as Robitussin in our guaifenesin t.i.d. p.r.n.. Medications: New doxycycline hyclate 100 mg PO BID 10 days 20 tabs 0RF bronchitis Coding Level of Care Code Est Pt Level 3 (29496) Diagnoses Allergic rhinitis J30.9 Allergic asthma J45.909 Post covid-19 condition, unspecified U09.9 Bronchitis J40
== END 2023-05-17 11:42 | disposition home or self-care (01) ==
PROVIDERS: PCP Internal Medicine; Visit Provider Internal Medicine
DX: J45.909 Unspecified asthma, uncomplicated (principal); J30.9 Allergic rhinitis, unspecified; U09.9 Post COVID-19 condition, unspecified
CPT/HCPCS: 99213

== ENCOUNTER → 2023-05-17 11:05 | Outpatient (BNVA) | payer OTHER, SELFPAY | PROVIDERS: PCP Internal Medicine; Visit Provider Internal Medicine | DX: J45.909 Unspecified asthma, uncomplicated (principal); U09.9 Post COVID-19 condition, unspecified | CPT/HCPCS: 99212 ==

== ENCOUNTER 2023-07-03 07:30 | Outpatient (AMB) | payer OTHER, SELFPAY ==
[2023-07-03 07:36] VITALS: BP 108/70; BMI 36.0
--- NOTE | 2023-07-03 07:36 | MHC.PC.OV ---
Vital Signs 07/03/23 07:36 Height 5 ft 7 in Weight 230 lb BMI 36.0 BP 108/70 Blood Pressure Location Lt brachial Position Sitting Intake Visit Reasons: PE Intake Note: Patient here for a physical exam, c/o left side back of head pain Instrumentation Instructor Required: No Accompanied by: Self / Same As Patient Allergies sumatriptan [From IMITREX] Allergy (Intermediate, Verified 07/03/23 07:50) rash, shortness of breath morphine Adverse Reaction (Severe, Verified 07/03/23 07:50) Migraine Medication List - Last Reconciled 07/03/23 by Sharmin Gutierrez MD budesonide-formoterol 160-4.5 mcg/actuation (Symbicort) 2 puffs inhalation BID bupropion HCl XL 150 mg PO QAM 90 days cholecalciferol (vitamin D3) 50 mcg PO DAILY 90 days cholestyramine (with sugar) 4 gram 4 grams PO BID 30 days fluticasone propionate 50 mcg/actuation 2 sprays intranasal DAILY gabapentin 600 mg PO TID 90 days levothyroxine 88 mcg PO DAILY 90 days loperamide (Imodium A-D) 2 mg PO Q6H PRN montelukast 10 mg PO DAILY omeprazole 40 mg PO DAILY Ventolin HFA 90 mcg/actuation (albuterol sulfate) 2 puffs inhalation Q6H PRN NS Tobacco use date assessed: 07/03/23 Dental Screening Dental Screen Date: 07/03/23 Did you have a dental visit in the last 12 months?: No Did you have a dental problem in the last 6 months where you did not have access to dental care?: No Was dental information given to patient?: Patient has dentist HPI HPI Comments History of Present Illness Details This is a 47-year-old female with moderate recurrent major depression that comes for her physical exam. She was on bupropion for over a month but discontinue it because did not felt better. I will start her on fluoxetine low-dose. She is obese with a BMI of 36 and was advised to do diet and exercise. Last mammogram was July 2022 and already has an appointment for 2023. Complains of a headache in the occiput that lasted about 4 minutes a day and she had some episodes with epistaxis and right hemiparesis associated with headache that lasted about 4 minutes and resolve on its own. No change in vision. No aggravating or alleviating factor. Last colonoscopy was 2019 and has history of colon polyps. Was referred last year to Gastroenterology with no answer and will be referred this year again. [facility] Medical History (Updated 07/03/23 @ 08:06 by Sharmin Gutierrez MD) Bronchitis Post covid-19 condition, unspecified Family history of breast cancer Hypovitaminosis D Insomnia Left foot pain Left wrist pain Bloody stools Family history of colon cancer Colon polyps Physical exam Surgical History History of umbilical hernia repair (~12/07/21) History of cholecystectomy History of carpal tunnel surgery History of colonoscopy History of bilateral breast reduction surgery History of back surgery History of hysterectomy Family History (Updated 07/03/23 @ 07:56 by Sharmin Gutierrez MD) Father Hypothyroid Thyroid cancer Asthma Migraine Mother Breast cancer, Onset Age: 21 Social History Housing: House Alcohol intake: current Alcohol intake frequency: holidays/special occasions only Alcohol type: wine Patient Tobacco Use Status: Never used Tobacco e-Cigarette/Vaping Use: Never Used Second Hand Smoke Exposure: No service: No Current occupational status: unemployed Cognitive needs: No Hearing needs: No Vision needs: No Questionnaire PHQ-9 Over the last 2 weeks, how often have you been bothered by any of the following problems? 1. Little interest or pleasure in doing things: more than half the days 2. Feeling down, depressed, or hopeless: more than half the days 3. Trouble falling or staying asleep, or sleeping too much: several days 4. Feeling tired or having little energy: more than half the days 5. Poor appetite or overeating: more than half the days 6. Feeling bad about yourself - or that you are a failure or have let yourself or your family down: several days 7. Trouble concentrating on things, such as reading the newspaper or watching television: nearly every day 8. Moving or speaking so slowly that other people could have noticed. Or the opposite - being so fidgety or restless that you have been moving around a lot more than usual: several days 9. Thoughts that you would be better off or of hurting yourself in some way: not at all Total score: 14 Depression Screening Interpretation: Positive Depression Screening Follow-up: Existing condition, New Medication prescribed and Follow-up Visit Requested Depression Screening Done: Yes [id number] - PHQ-9 Billing: Yes Source: Developed by Drs. Donn Mckeon, Rebecca Villalta, Meek Ricardo and colleagues, with an educational darrel from [employer]. Thrive Questionnaire Date Thrive assessed: 07/03/23 I am a: Patient What is your living situation today?: I have a steady place to live Within the past 12 months, did the food you bought not last and you didn't have the money to get more?: Never true Within the past 12 months, did you worry whether your food would run out before you got money to buy more?: Never true Do you have trouble paying for medicines?: No Do you have trouble getting transportation to medical appointments?: No Do you have trouble paying your heating and electricity bill?: No Do you have trouble taking care of your child, family member or friend?: No Do you have trouble with day-to-day activities such as bathing, preparing meals, shopping, managing finances, etc.?: No Are you currently unemployed and looking for a job?: No Are you interested in more education?: No Please select the resources that you would like help with: None Currently or been in a relationship where the following occur: no concerns reported THRIVE Score: 0 AUDIT C Alcohol Use Questionnaire (AUDIT-C) 1. How often do you have a drink containing alcohol?: Never Total Score: 0 ALIZA-7 AMB Questionnaire ALIZA-7 Date ALIZA - 7 assessed: 07/03/23 Feeling nervous, anxious, or on edge: 2 = More than half the days Not being able to stop or control worryin = Several days Worrying too much about different things: 3 = Nearly every day Trouble relaxin = Nearly every day Being so restless that it is hard to sit still: 2 = More than half the days Becoming easily annoyed or irritable: 0 = Not at all Feeling afraid as if something awful might happen: 3 = Nearly every day Total ALIZA-7 score (0-4 normal; 5-9 mild; 10-14 moderate; 15-21 severe): 14 Source: Developed by Drs. Donn Mckeon, Rebecca Villalta, Meek Ricardo and colleagues, with an educational darrel from [employer]. ALIZA-7 Assessment Billing ALIZA-7 Assessment Tool: ALIZA-7 Assessment 48567 Review of Systems Const All systems reviewed & are unremarkable except as noted in HPI and below Reports headache(s) Eyes Reports no additional complaints, Denies change in vision and Denies other visual disturbances ENT Reports headache(s) Card Denies chest pain at rest, Denies chest pain with activity, Denies edema, Denies irregular heart rhythm, Denies claudication, Denies dyspnea, Denies dyspnea on exertion, Denies orthopnea, Denies paroxysmal nocturnal dyspnea and Denies slow heart rate Resp Denies cough, Denies dyspnea and Denies dyspnea on exertion Neuro Reports headache(s) Psych Reports anxiety and Reports depression Physical exam (Primary Care) Vital Signs: Last Vital Signs BP 108/70 07/03/23 07:36 BMI result Body Mass Index 36.0 Tobacco/Smoking Status: Tobacco use Status Tobacco use date assessed 07/03/23 07/03/23 07:43 Patient Tobacco Use Status Never used Tobacco 07/03/23 07:43 e-Cigarette/Vaping Use Never Used 07/03/23 07:43 PHQ-9: PHQ-9 Score PHQ-9: Total score 14 07/03/23 07:43 Depression Screening Interpretation: Positive Depression Screening Follow-up: Existing condition, New Medication prescribed and Follow-up Visit Requested Thrive Assessment: Date of Thrive Assessment Date Thrive assessed 07/03/23 07/03/23 07:43 Currently or been in a relationship where the following occur: no concerns reported Const Orientation/consciousness: patient oriented x3 HENMT Head: Yes normal to inspection, Yes normocephalic and Yes atraumatic Ears: external ears normal Eyes General: appearance normal, both eyes and all related structures Eyelids: Yes eyelids normal Conjunctivae: conjunctivae normal Neck Neck: Yes normal visual inspection and Yes supple Resp Effort & Inspection: normal respiratory effort Auscultation: clear to auscultation bilaterally Cardio Jugular venous distension: no JVD Rate: regular rate Rhythm: regular rhythm Heart sounds: S1 normal heart sound present and S2 normal heart sound present GI Inspection: Yes normal to inspection Palpation (GI): Soft to palpation and nontender Auscultation: normal bowel sounds Skin General skin exam: no rashes or lesions noted Neuro General: patient oriented x3 and no focal motor deficits Extrem General: Yes full ROM Psych Appearance: grossly normal Assessment and Plan Assessment & Plan (1) Physical exam: Code(s): Z00.00 - Encounter for general adult medical examination without abnormal findings Plan: Repeat in a year. (2) Moderate recurrent major depression: Code(s): F33.1 - Major depressive disorder, recurrent, moderate Plan: Start fluoxetine. Follow-up in 6 months. Orders: Orders Comprehensive [place]. Panel Fast Today Z00.00 - Encounter for general adult medical examination without abnormal findings Vitamin D 25-OH Total Today E55.9 - Vitamin D deficiency, unspecified Thyroid Stimulating Hormone Today E03.9 - Hypothyroidism, unspecified Lipid Panel Today E78.5 - Hyperlipidemia, unspecified, Z00.00 - Encounter for general adult medical examination without abnormal findings MR head/brain wo con Today G44.52 - New daily persistent headache (NDPH) Referrals Gastroenterology Referral K63.5 - Polyp of colon Medications: New fluoxetine 10 mg PO DAILY 90 days 90 tabs 0RF F33.1 - Major depressive disorder, recurrent, moderate Discontinued bupropion HCl XL Discontinued Reason: Patient Refused 150 mg PO QAM 90 days 90 tabs 0RF F33.1 - Major depressive disorder, recurrent, moderate Coding Level of Care Code Est Pt Prev Care 40-64y(62017) Diagnoses Physical exam Z00.00 Moderate recurrent major depression F33.1 Additional Codes ALIZA-7 Assessment Billing - ALIZA-7 Assessment Tool: ALIZA-7 Assessment [id number] ([id number]) Time Spent (min) 33
== END 2023-07-03 08:05 | disposition home or self-care (01) ==
PROVIDERS: Visit Provider Internal Medicine
DX: Z00.00 Encounter for general adult medical examination without abnormal findings (principal); F33.1 Major depressive disorder, recurrent, moderate; E55.9 Vitamin D deficiency, unspecified; Z86.010 Personal history of colon polyps
CPT/HCPCS: 96127; 99396

== ENCOUNTER 2023-07-03 08:12 | Outpatient (REF) | payer OTHER, SELFPAY ==
[2023-07-03 10:26] LABS: Alanine Aminotransferase 18 U/L (0-31); Albumin Level 4.4 g/dL (3.5-5.0); Alkaline Phosphatase 87 U/L (39-117); Anion Gap 10 (12-20); Aspartate Amino Transferase 19 U/L (5-31); Bilirubin Total 0.3 mg/dL (0.0-1.0); Blood Urea Nitrogen 10 mg/dL (9-16); Calcium 9.7 mg/dL (8.4-10.2); Carbon Dioxide 28 mmol/L (22-29); Chloride 108 mmol/L (96-108); Cholesterol 198 mg/dL (<200); Estimated Glomerular Filt Rate > 60; Glucose Fasting 97 mg/dL (60-99); HDL Cholesterol 48 mg/dL (>40); LDL Cholesterol Calculated 133 mg/dL (<100); Sodium 142 mmol/L (135-145); Total Protein 7.4 g/dL (6.5-8.0); Triglycerides 87 mg/dL (<150)
[2023-07-03 10:42] LABS: Thyroid Stimulating Hormone 2.67 uIU/mL (0.32-4.0); Vitamin D 25-OH Total 27.6 ng/mL (>30)
== END 2023-07-03 08:13 | disposition home or self-care (01) ==
LOC: HO.LAB 08:12
PROVIDERS: PCP Internal Medicine; Visit Provider Internal Medicine
DX: Z00.00 Encounter for general adult medical examination without abnormal findings (principal); E55.9 Vitamin D deficiency, unspecified; E03.9 Hypothyroidism, unspecified; E78.5 Hyperlipidemia, unspecified
CPT/HCPCS: 36415; 80053; 80061; 82306; 84443

== ENCOUNTER 2023-07-13 19:00 | Outpatient (REF) | payer OTHER, SELFPAY ==
--- NOTE | ~2023-07-13 | MR_ITS ---
EXAMINATION: MR BRAIN WITHOUT CONTRAST CLINICAL INFORMATION: 47-year-old with new daily persistent headache associated with epistaxis and right hemiparesis resolving when headache improves. COMPARISON: None available. TECHNIQUE: MRI of the brain was obtained using routine sequences without contrast. FINDINGS: Brain Volume: Within normal limits within the limitations of qualitative assessment. Structural: Mild benign cerebellar tonsillar ectopia at the foramen magnum, normal variant. Brain and Meninges: DWI sequence demonstrates no restricted diffusion to suggest acute or subacute cerebral ischemia. The brain parenchyma is normal in morphology and signal intensity.?Stanley-white matter interface is preserved. No extra-axial fluid collections, space-occupying process or mass effect are identified. Gradient refocused imaging demonstrates no abnormal susceptibility-weighted signal loss to suggest hemorrhage, hemosiderin staining or abnormal mineralization. Ventricles and Subarachnoid Spaces: The ventricular system and subarachnoid spaces are within normal range; there is no hydrocephalus. Orbital Structures: The visualized orbital structures are grossly unremarkable within the limitations of the study. Vascular: Signal voids are noted in the visualized major intracranial vessels. Osseous Structures, Sinuses/Mastoids, Extracranial Soft Tissues: Osseous marrow signal intensity appears within normal limits. There is sinusoidal nasal septal deviation, and there is mucosal thickening throughout the ethmoid complex and maxillary sinuses bilaterally with a small fluid level in the right maxillary sinus and some mucosal thickening in the sphenoid sinus. Visualized extracranial soft tissue structures are grossly unremarkable. MR/MR head/brain wo con IMPRESSION: 1. Normal noncontrast MRI of the brain. 2. Paranasal sinus mucosal inflammatory changes with sinusoidal deviation and a small fluid level in the right maxillary sinus. Correlate for any evidence of acute sinusitis.
== END 2023-07-13 19:01 | disposition home or self-care (01) ==
LOC: HO.MRI 19:00
PROVIDERS: PCP Internal Medicine; Visit Provider Internal Medicine
DX: G44.52 New daily persistent headache (NDPH) (principal)
CPT/HCPCS: 70551

== ENCOUNTER 2023-07-22 09:27 | Outpatient (REF) | payer OTHER, SELFPAY | END 2023-07-22 09:28 | disposition home or self-care (01) | LOC: HO.MAMMO 09:27 | PROVIDERS: PCP Internal Medicine; Visit Provider Internal Medicine | DX: Z12.31 Encounter for screening mammogram for malignant neoplasm of breast (principal) | CPT/HCPCS: 77063; 77067 ==

== ENCOUNTER → 2023-07-22 10:00 | Outpatient (BNV) | payer OTHER, SELFPAY | PROVIDERS: PCP Internal Medicine; Visit Provider Radiology Diagnostic Radiology | DX: Z12.31 Encounter for screening mammogram for malignant neoplasm of breast (principal) | CPT/HCPCS: 77063; 77067 ==

== ENCOUNTER 2024-01-04 07:39 | Outpatient (AMB) | payer OTHER, SELFPAY ==
--- NOTE | 2024-01-04 07:43 | MHC.PC.OV ---
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: No Accompanied by: Self / Same As Patient Allergies sumatriptan [From IMITREX] Allergy (Intermediate, Verified 01/04/24 07:59) rash, shortness of breath morphine Adverse Reaction (Severe, Verified 01/04/24 07:59) Migraine Medication List - Last Reconciled 01/04/24 by Sharmin Gutierrez MD budesonide-formoterol 160-4.5 mcg/actuation (Symbicort) 2 puffs inhalation BID cholecalciferol (vitamin D3) 50 mcg PO DAILY 90 days cholestyramine (with sugar) 4 gram 4 grams PO BID 30 days fluoxetine 10 mg PO DAILY 90 days fluticasone propionate 50 mcg/actuation 2 sprays intranasal DAILY gabapentin 600 mg PO TID 90 days levothyroxine 88 mcg PO DAILY 90 days loperamide (Imodium A-D) 2 mg PO Q6H PRN montelukast 10 mg PO DAILY omeprazole 40 mg PO DAILY Ventolin HFA 90 mcg/actuation (albuterol sulfate) 2 puffs inhalation Q6H PRN NS Tobacco use date assessed: 07/03/23 Dental Screening Dental Screen Date: 07/03/23 HPI HPI Comments History of Present Illness Details This is a 48-year-old female with moderate recurrent major depression, chronic GERD and moderate persistent asthma that comes today complaining of sinus tenderness and cough with chest congestion that started yesterday. No sick contacts. No fever. Some expiratory wheezing. Will give her prednisone and antibiotics. She also had some epistaxis only from left nostril. Depression stable with low-dose SSRIs. GERD stable with PPIs. On long-acting inhaler for her asthma and usually does not use rescue inhaler more than once a month. FORMERLY [facility], [facility] Medical History (Updated 01/04/24 @ 08:50 by Sharmin Gutierrez MD) Bronchitis Post covid-19 condition, unspecified Family history of breast cancer Hypovitaminosis D Insomnia Left foot pain Left wrist pain Bloody stools Family history of colon cancer Colon polyps Physical exam Surgical History History of umbilical hernia repair (~12/07/21) History of cholecystectomy History of carpal tunnel surgery History of colonoscopy History of bilateral breast reduction surgery History of back surgery History of hysterectomy Family History Father Hypothyroid Thyroid cancer Asthma Migraine Mother Breast cancer, Onset Age: 21 Social History Housing: House Alcohol intake: current Alcohol intake frequency: holidays/special occasions only Alcohol type: wine Patient Tobacco Use Status: Never used Tobacco e-Cigarette/Vaping Use: Never Used Second Hand Smoke Exposure: No service: No Current occupational status: unemployed Cognitive needs: No Hearing needs: No Vision needs: No Questionnaire Thrive Questionnaire Date Thrive assessed: 07/03/23 ALIZA-7 AMB Questionnaire ALIZA-7 Date ALIZA - 7 assessed: 07/03/23 Source: Developed by Drs. Donn Mckeon, Rebecca Villalta, Meek Ricardo and colleagues, with an educational darrel from [email or web address]. Review of Systems Const All systems reviewed & are unremarkable except as noted in HPI and below Card Denies chest pain at rest, Denies chest pain with activity, Denies edema, Denies irregular heart rhythm, Denies claudication, Reports dyspnea, Denies dyspnea on exertion, Denies orthopnea, Denies paroxysmal nocturnal dyspnea and Denies slow heart rate Resp Reports chest congestion, Reports cough, Reports dyspnea, Denies dyspnea on exertion and Reports wheezing Aller/Immun Reports wheezing Physical exam (Primary Care) Vital Signs: Last Vital Signs BP 122/80 01/04/24 07:44 BMI result Body Mass Index 36.8 Tobacco/Smoking Status: Tobacco use Status Tobacco use date assessed 07/03/23 01/04/24 07:48 Patient Tobacco Use Status Never used Tobacco 01/04/24 07:48 e-Cigarette/Vaping Use Never Used 01/04/24 07:48 Thrive Assessment: Date of Thrive Assessment Date Thrive assessed 07/03/23 01/04/24 07:48 Resp Effort & Inspection: normal respiratory effort Auscultation: clear to auscultation bilaterally Cardio Jugular venous distension: no JVD Rate: regular rate Rhythm: regular rhythm Heart sounds: S1 normal heart sound present and S2 normal heart sound present Extrem General: Yes full ROM Coding Level of Care Code Est Pt Level 4 (50835) Complex EM visit Add On G2211 Diagnoses Upper respiratory tract infection, unspecified type J06.9 URI type: unspecified URI Moderate recurrent major depression F33.1 Moderate persistent asthma without complication J45.40 Asthma persistence: persistent Asthma complication type: uncomplicated Chronic GERD K21.9 Time Spent (min) 22 Assessment & Plan Assessment & Plan (1) URI (upper respiratory infection): Code(s): J06.9 - Acute upper respiratory infection, unspecified Category: Medical Qualifiers: URI type: unspecified URI Qualified Code(s): J06.9 - Acute upper respiratory infection, unspecified Plan: Start doxycycline and prednisone. (2) Moderate recurrent major depression: Code(s): F33.1 - Major depressive disorder, recurrent, moderate Category: Medical Plan: Continue SSRIs. (3) Moderate asthma: Code(s): J45.909 - Unspecified asthma, uncomplicated Category: Medical Qualifiers: Asthma persistence: persistent Asthma complication type: uncomplicated Qualified Code(s): J45.40 - Moderate persistent asthma, uncomplicated Plan: Continue long-acting inhaler. Use rescue inhaler as needed. (4) Chronic GERD: Code(s): K21.9 - Gastro-esophageal reflux disease without esophagitis Category: Medical Plan: Continue PPIs. Orders: Orders Vitamin D 25-OH Total Today E55.9 - Vitamin D deficiency, unspecified Thyroid Stimulating Hormone Today E03.9 - Hypothyroidism, unspecified Medications: New doxycycline hyclate 100 mg PO BID 10 tabs 0RF 5 days prednisone Take 4 tabs for 2 days, then 3 tabs for 2 days, then 2 tabs for 2 days, then 1 tab for 2 days 10 mg PO DIRECTED 20 tabs 0RF 8 days
[2024-01-04 07:44] VITALS: BP 122/80; BMI 36.8
== END 2024-01-04 08:07 | disposition home or self-care (01) ==
LOC: HO.HMCH 07:40
PROVIDERS: PCP Internal Medicine; Visit Provider Internal Medicine
DX: J06.9 Acute upper respiratory infection, unspecified (principal); F33.1 Major depressive disorder, recurrent, moderate; J45.40 Moderate persistent asthma, uncomplicated; K21.9 Gastro-esophageal reflux disease without esophagitis; Z23 Encounter for immunization

== ENCOUNTER 2024-01-04 07:39 | Outpatient (REF) | payer OTHER, SELFPAY ==
--- NOTE | ~2024-01-04 | XR_ITS ---
EXAMINATION: XR CHEST CLINICAL INFORMATION: J40 - Bronchitis, not specified as acute or chronic COMPARISON: None available. TECHNIQUE: 2 views of the chest were obtained. FINDINGS: Cardiac silhouette is top normal in size. Mediastinal and hilar contours are normal. The lungs are clear bilaterally. There is no pneumothorax or pleural effusion. There is no focal osseous or soft tissue abnormality. There are cholecystectomy clips. XR/XR chest 2V IMPRESSION: No active pulmonary disease. Electronically signed by: Scott Celestin MD 02/13/2024 02:17 PM [facility]ED[facility]
[2024-01-04 10:04] LABS: Thyroid Stimulating Hormone 5.96 uIU/mL (0.32-4.0)
== END 2024-01-04 07:40 | disposition home or self-care (01) ==
LOC: HO.LAB 07:39
PROVIDERS: PCP Internal Medicine; Referring Provider Internal Medicine; Visit Provider Internal Medicine
DX: J40 Bronchitis, not specified as acute or chronic (principal); R40.0 Somnolence; G47.33 Obstructive sleep apnea (adult) (pediatric); J06.9 Acute upper respiratory infection, unspecified; F33.1 Major depressive disorder, recurrent, moderate; J45.40 Moderate persistent asthma, uncomplicated; K21.9 Gastro-esophageal reflux disease without esophagitis; J30.9 Allergic rhinitis, unspecified
CPT/HCPCS: 36415; 71046; 82306; 84443; 90471; 99212

== ENCOUNTER 2024-01-04 10:49 | Outpatient (AMB) | payer OTHER, SELFPAY ==
[2024-01-04 11:02] VITALS: BP 100/62; PULSE 100; O2SAT 98; BMI 36.8
--- NOTE | 2024-01-04 11:02 | MHC.OFFVIS ---
Vital Signs 01/04/24 11:02 Height 5 ft 7 in Weight 235 lb BMI 36.8 BP 100/62 Blood Pressure Location Lt brachial Position Sitting Pulse 100 Pulse Source Pulse Oximeter Pulse Oximetry (%) 98 Oxygen Delivery Method Room Air Intake Visit Reasons: asthma Intake Note: pt is here for follow up and states she does not feel well, she is coughing, short of breath, wheezing and last night nose bleed on right side for about 5 minutes, but she has been sick x3 this month, primary did send in doxy and prednisone but she has not picked it up yet. 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: No Allergies sumatriptan [From IMITREX] Allergy (Intermediate, Verified 01/04/24 12:02) rash, shortness of breath morphine Adverse Reaction (Severe, Verified 01/04/24 12:02) Migraine Medication List - Last Reconciled 01/04/24 by Gary Schmidt MD budesonide-formoterol 160-4.5 mcg/actuation (Symbicort) 2 puffs inhalation BID cholecalciferol (vitamin D3) 50 mcg PO DAILY 90 days cholestyramine (with sugar) 4 gram 4 grams PO BID 30 days doxycycline hyclate 100 mg PO BID 5 days fluoxetine 10 mg PO DAILY 90 days fluticasone propionate 50 mcg/actuation 2 sprays intranasal DAILY gabapentin 600 mg PO TID 90 days levothyroxine 88 mcg PO DAILY 90 days loperamide (Imodium A-D) 2 mg PO Q6H PRN montelukast 10 mg PO DAILY omeprazole 40 mg PO DAILY prednisone 10 mg PO DIRECTED 8 days Ventolin HFA 90 mcg/actuation (albuterol sulfate) 2 puffs inhalation Q6H PRN NS Do you need a note to return to daycare/school/sports/work: No HPI HPI asthma: Details: This 48 years old female is here for follow-up, She complains of ongoing cough with some discomfort in the chest, and more shortness of breath. She does have history of chronic allergic rhinitis, and chronic cough due to possible obstructive airway disorder. It has been worse in the last few weeks and she had seen her primary care doctor recently who has prescribed course of prednisone and doxycycline. She has not picked up this medicine yet. She has ongoing nasal congestion with feeling of blockage. Last night had a temporary epistaxis from the left nostril which resolved in 5 minutes. He has multiple comorbidities including, hypothyroidism, depression, aches and pains in the joints . Remains relatively inactive and has not been able to lose any weight. SLEEP HISTORY She complains that she still does not sleep well, she wakes up frequently with. Choking like feeling She gets terrified and to the extent that she wants boy to sleep with her at night. During the day she is sleepy most of the time, when sitting at home, reading or even checking her iPhone she tends to doze of. She definitely has hypersomnolence during the day. She is grossly obese and has not been able to lose much weight. Her ongoing general body symptoms make her more depressed. [facility] Medical History (Updated 01/04/24 @ 12:16 by Gary Schmidt MD) JAMAR (obstructive sleep apnea) Somnolence, daytime Obesity (BMI 35.0-39.9 without comorbidity) Bronchitis Post covid-19 condition, unspecified Family history of breast cancer Hypovitaminosis D Insomnia Left foot pain Left wrist pain Bloody stools Family history of colon cancer Colon polyps Physical exam Surgical History History of umbilical hernia repair (~12/07/21) History of cholecystectomy History of carpal tunnel surgery History of colonoscopy History of bilateral breast reduction surgery History of back surgery History of hysterectomy Family History Father Hypothyroid Thyroid cancer Asthma Migraine Mother Breast cancer, Onset Age: 21 Social History Housing: House Alcohol intake: current Alcohol intake frequency: holidays/special occasions only Alcohol type: wine Patient Tobacco Use Status: Never used Tobacco e-Cigarette/Vaping Use: Never Used Second Hand Smoke Exposure: No service: No Current occupational status: unemployed Cognitive needs: No Hearing needs: No Vision needs: No Review of Systems Const All systems reviewed & are unremarkable except as noted in HPI and below Eyes Reports no additional complaints, Denies change in vision and Reports other visual disturbances Card Reports chest pain at rest, Reports chest pain with activity, Denies edema, Denies irregular heart rhythm, Denies claudication, Reports dyspnea, Reports dyspnea on exertion, Denies orthopnea, Denies paroxysmal nocturnal dyspnea and Denies slow heart rate Resp Reports cough, Reports dyspnea, Reports dyspnea on exertion and Reports wheezing (Almost on daily basis) GI Reports no additional complaints and Reports nausea Reports no additional complaints Musc Reports no additional complaints and Reports back pain (Mild) Skin/Breast Reports system reviewed and no additional complaints, except as documented Neuro Reports no additional complaints Psych Reports no additional complaints Aller/Immun Reports wheezing (Almost on daily basis) Physical Exam Vital Signs: Last Vital Signs Pulse 100 01/04/24 11:02 BP 100/62 01/04/24 11:02 Pulse Ox 98 01/04/24 11:02 Oxygen Delivery Method Room Air 01/04/24 11:02 BMI result Body Mass Index 36.8 Const General: healthy appearing, comfortable, no acute distress, alert and awake Orientation/consciousness: patient oriented x3 HEENT Head: Yes normal to inspection General nose exam: No nasal polyps present, No nasal discharge present and Other nasal findings present (DNS to left, mild nasal congestion) Face and sinus: Yes sinuses nontender Mouth: oropharynx normal Throat: Yes posterior oropharynx normal Eyes General: appearance normal, both eyes and all related structures Neck Neck: Yes normal visual inspection, Yes no lymphadenopathy, Yes trachea midline and Yes no JVD Thyroid: Thyroid normal Chest Chest palpation & inspection: normal inspection of the chest, normal palpation of entire chest wall and no tenderness Resp Other: Percussion note resonant, breath sounds are generally diminished. There are a few Creps over the basilar areas, no wheezes. Cardio Palpation: normal PMI Rate: regular rate Rhythm: regular rhythm Heart sounds: no gallops and no murmurs Peripheral pulses: Peripheral pulses 2+ throughout GI Palpation (GI): Soft to palpation, nontender, No hepatosplenomegaly present and no masses Auscultation: normal bowel sounds Back/Spine/Pelvis Thoracic/Lumbar Spine: thoracic and lumbar spine normal to inspection Skin General skin exam: no rashes or lesions noted Neuro General: patient oriented x3 and no focal motor deficits Cranial nerves: Yes CN's II-XII intact bilaterally Extrem General: Yes normal to inspection, Yes no clubbing, cyanosis or edema and Yes no calf tenderness Psych Appearance: grossly normal and well kempt Speech and movement: Normal speech and movement present Assessment & Plan Assessment & Plan (1) Bronchitis: Comment: Patient seems to have recurrent bronchitis. Code(s): J40 - Bronchitis, not specified as acute or chronic Category: Medical Plan: Course of prednisone and doxycycline as prescribed by her primary care physician is okay. I ordered chest x-ray just to make sure that she has no pneumonia (2) Allergic asthma: Comment: This patient has chronic allergic bronchial asthma, Her allergens are, usual environmental agents, including dogs that she has at home. One previous CBC result shows eosinophilia of 4.5%.but last CBC on 08/23/21 showed Eiosiniphil count only 2 % Code(s): J45.909 - Unspecified asthma, uncomplicated Category: Medical Plan: Continue Symbicort 160-4.52 puffs b.i.d. Use albuterol HFA 2 puffs Q 6 hours p.r.n. Also continue montelukast 10 mg daily (3) Allergic rhinitis: Comment: She has history of chronic allergic rhinitis which flares up at the change of weather. Usually has remained well controlled with ongoing medical regimen. Code(s): J30.9 - Allergic rhinitis, unspecified Category: Medical Plan: Continue montelukast 10 mg daily. Do use Flonase 2 spray in each nostril daily. (4) Obesity (BMI 35.0-39.9 without comorbidity): Comment: Patient is grossly obese, her weight fluctuates by a few lb but overall has not been able to lose weight. Code(s): E66.9 - Obesity, unspecified Category: Medical Plan: Discussed with her about the weight, advised to cut down the calories intake. And try to walk 1 or 2 miles daily if possible. (5) Somnolence, daytime: Comment: She does have excessive daytime somnolence, most likely secondary to insufficient sleep at night. This is indicated of obstructive sleep apnea for which she needs to be tested. Code(s): R40.0 - Somnolence Category: Medical Plan: Home-based sleep study is ordered. (6) JAMAR (obstructive sleep apnea): Comment: The body weight physical features and her symptoms are pointing to possible obstructive sleep apnea. Code(s): G47.33 - Obstructive sleep apnea (adult) (pediatric) Category: Medical Plan: Home-based sleep study is ordered. Appropriate treatment will be started after the study results. Orders: Orders XR chest 2V Today J40 - Bronchitis, not specified as acute or chronic, J45.909 - Unspecified asthma, uncomplicated RT home sleep study Today E66.9 - Obesity, unspecified, G47.33 - Obstructive sleep apnea (adult) (pediatric), R40.0 - Somnolence Coding Level of Care Code Est Pt Level 4 (27200) Diagnoses Bronchitis J40 Allergic asthma J45.909 Allergic rhinitis J30.9 Obesity (BMI 35.0-39.9 without comorbidity) E66.9 Somnolence, daytime R40.0 JAMAR (obstructive sleep apnea) G47.33
== END 2024-01-04 11:24 | disposition home or self-care (01) ==
LOC: HO.HPS 10:50
PROVIDERS: PCP Internal Medicine; Visit Provider Internal Medicine
DX: J40 Bronchitis, not specified as acute or chronic (principal); R40.0 Somnolence; G47.33 Obstructive sleep apnea (adult) (pediatric)
CPT/HCPCS: 99214

== ENCOUNTER → 2024-01-04 11:29 | Outpatient (BNV) | payer OTHER, SELFPAY | PROVIDERS: PCP Internal Medicine; Referring Provider Internal Medicine; Visit Provider Radiology Diagnostic Radiology | DX: J40 Bronchitis, not specified as acute or chronic (principal) | CPT/HCPCS: 71046 ==

== ENCOUNTER 2024-02-13 09:46 | Outpatient (AMB) | payer OTHER, SELFPAY ==
[2024-02-13 09:57] VITALS: BP 114/72; PULSE 67; O2SAT 98; BMI 36.9
--- NOTE | 2024-02-13 09:57 | MHC.OFFVIS ---
Vital Signs 02/13/24 09:57 Height 5 ft 7 in Weight 235 lb 14.314 oz BMI 36.9 BP 114/72 Blood Pressure Location Lt brachial Position Sitting Pulse 67 Pulse Source Pulse Oximeter Pulse Oximetry (%) 98 Oxygen Delivery Method Room Air Intake Visit Reasons: asthma Intake Note: pt is here for follow up and states she is coughing a lot, bloody nose yesterday on left side, some phlegm with cough. 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 Required: No Allergies sumatriptan [From IMITREX] Allergy (Intermediate, Verified 02/13/24 10:14) rash, shortness of breath morphine Adverse Reaction (Severe, Verified 02/13/24 10:14) Migraine Medication List - Last Reconciled 02/13/24 by Gary Schmidt MD budesonide-formoterol 160-4.5 mcg/actuation (Symbicort) 2 puffs inhalation BID cholestyramine (with sugar) 4 gram 4 grams PO BID 30 days fluoxetine 10 mg PO DAILY 90 days fluticasone propionate 50 mcg/actuation 2 sprays intranasal DAILY gabapentin 600 mg PO TID 90 days levothyroxine 88 mcg PO DAILY 90 days loperamide (Imodium A-D) 2 mg PO Q6H PRN montelukast 10 mg PO DAILY omeprazole 40 mg PO DAILY Ventolin HFA 90 mcg/actuation (albuterol sulfate) 2 puffs inhalation Q6H PRN NS Do you need a note to return to daycare/school/sports/work: No HPI HPI asthma: Details: THIS 48 YEARS OLD FEMALE IS HERE FOR FOLLOW-UP. SHE HAS CHRONIC ALLERGIC RHINITIS AND BRONCHIAL ASTHMA. CONTINUES TO HAVE ONGOING NASAL CONGESTION WITH INTERMITTENT TRACES OF NASAL BLEED, CONTINUES TO HAVE MILD INTERMITTENT. COUGH WHICH IS MOSTLY DRY DENIES HAVING ANY ATTACKS OF WHEEZING. ALSO SHE IS GROSSLY OBESE AND HAS SYMPTOMS OF OBSTRUCTIVE SLEEP APNEA. SHE HAS NOT HAD THE HOME-BASED SLEEP STUDY YET. [facility] Medical History JAMAR (obstructive sleep apnea) Somnolence, daytime Obesity (BMI 35.0-39.9 without comorbidity) Bronchitis Post covid-19 condition, unspecified Family history of breast cancer Hypovitaminosis D Insomnia Left foot pain Left wrist pain Bloody stools Family history of colon cancer Colon polyps Physical exam Surgical History History of umbilical hernia repair (~12/07/21) History of cholecystectomy History of carpal tunnel surgery History of colonoscopy History of bilateral breast reduction surgery History of back surgery History of hysterectomy Family History Father Hypothyroid Thyroid cancer Asthma Migraine Mother Breast cancer, Onset Age: 21 Social History Housing: House Alcohol intake: current Alcohol intake frequency: holidays/special occasions only Alcohol type: wine Patient Tobacco Use Status: Never used Tobacco e-Cigarette/Vaping Use: Never Used Second Hand Smoke Exposure: No service: No Current occupational status: unemployed Cognitive needs: No Hearing needs: No Vision needs: No Review of Systems Const All systems reviewed & are unremarkable except as noted in HPI and below Eyes Reports no additional complaints, Denies change in vision and Reports other visual disturbances Card Reports chest pain at rest, Reports chest pain with activity, Denies edema, Denies irregular heart rhythm, Denies claudication, Reports dyspnea, Reports dyspnea on exertion, Denies orthopnea, Denies paroxysmal nocturnal dyspnea and Denies slow heart rate Resp Reports cough, Reports dyspnea, Reports dyspnea on exertion and Reports wheezing (Almost on daily basis) GI Reports no additional complaints and Reports nausea Reports no additional complaints Musc Reports no additional complaints and Reports back pain (Mild) Skin/Breast Reports system reviewed and no additional complaints, except as documented Neuro Reports no additional complaints Psych Reports no additional complaints Aller/Immun Reports wheezing (Almost on daily basis) Physical Exam Vital Signs: Last Vital Signs Pulse 67 02/13/24 09:57 BP 114/72 02/13/24 09:57 Pulse Ox 98 02/13/24 09:57 Oxygen Delivery Method Room Air 02/13/24 09:57 BMI result Body Mass Index 36.9 Const General: healthy appearing, comfortable, no acute distress, alert and awake Orientation/consciousness: patient oriented x3 HEENT Head: Yes normal to inspection General nose exam: No nasal polyps present, No nasal discharge present and Other nasal findings present (DNS to left, mild nasal congestion) Face and sinus: Yes sinuses nontender Mouth: oropharynx normal Throat: Yes posterior oropharynx normal Eyes General: appearance normal, both eyes and all related structures Neck Neck: Yes normal visual inspection, Yes no lymphadenopathy, Yes trachea midline and Yes no JVD Thyroid: Thyroid normal Chest Chest palpation & inspection: normal inspection of the chest, normal palpation of entire chest wall and no tenderness Resp Other: Percussion note resonant, breath sounds are generally diminished. There are a few Creps over the basilar areas, no wheezes. Cardio Palpation: normal PMI Rate: regular rate Rhythm: regular rhythm Heart sounds: no gallops and no murmurs Peripheral pulses: Peripheral pulses 2+ throughout GI Palpation (GI): Soft to palpation, nontender, No hepatosplenomegaly present and no masses Auscultation: normal bowel sounds Back/Spine/Pelvis Thoracic/Lumbar Spine: thoracic and lumbar spine normal to inspection Skin General skin exam: no rashes or lesions noted Neuro General: patient oriented x3 and no focal motor deficits Cranial nerves: Yes CN's II-XII intact bilaterally Extrem General: Yes normal to inspection, Yes no clubbing, cyanosis or edema and Yes no calf tenderness Psych Appearance: grossly normal and well kempt Speech and movement: Normal speech and movement present Results Reviewed Results Reviewed: SPIROMETRY Assessment & Plan Assessment & Plan (1) Allergic rhinitis: Comment: She has history of chronic allergic rhinitis which flares up at the change of weather. Usually has remained well controlled with ongoing medical regimen. She has occasional bleeding from the left nostril probably due to increased nasal congestion. Code(s): J30.9 - Allergic rhinitis, unspecified Category: Medical Plan: Continue montelukast 10 mg daily. Flonase -50 2 sprays in each nostril daily at nighttime. ( hold for a few days if there is any acute bleeding ) (2) Allergic asthma: Comment: This patient has chronic allergic bronchial asthma, Her allergens are, usual environmental agents, including dogs that she has at home. One previous CBC result shows eosinophilia of 4.5%.but last CBC on 06/28/22 showed Eiosiniphil count only3.2 % The bronchial asthma seems to be fairly well controlled at this time. SPIROMETRY today : Code(s): J45.909 - Unspecified asthma, uncomplicated Category: Medical Plan: Continue using Symbicort 160-4.52 puffs b.i.d. . Montelukast 10 mg daily ProAir 2 puffs Q 4-6 hours p.r.n. (3) Obesity (BMI 35.0-39.9 without comorbidity): Comment: Patient is grossly obese, her weight fluctuates by a few lb but overall has not been able to lose weight. Current BMI= 36.9 Code(s): E66.9 - Obesity, unspecified Category: Medical Plan: Discussed with her about the weight issue. She is trying her best to watch diet and tries to stay active. It is difficult for her to lose weight. (4) Somnolence, daytime: Comment: She does have excessive daytime somnolence, most likely secondary to insufficient sleep at night. This is indicated of obstructive sleep apnea for which she needs to be tested. 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 Orders: Orders AMB Spirometry Testing Today J45.909 - Unspecified asthma, uncomplicated Coding Level of Care Code Est Pt Level 3 (72648) Diagnoses Allergic rhinitis J30.9 Allergic asthma J45.909 Obesity (BMI 35.0-39.9 without comorbidity) E66.9 Somnolence, daytime R40.0
--- OUTSIDE RECORDS SUMMARY | 2024-02-14 19:33 | XMS_ITS | Data Portability ---
Author Organization [facility], [address] Address [address] [place] [address] Assessment No assessment recorded. Plan of Treatment Reminders Order Date Submit Date Provider Last Modified By Organization Details Last Modified Time Details Appointments None recorded. Lab urinalysis , dipstick 2022 023 [email or web address] [facility], [address] [place] [address], [id number], 3 16:35:45 culture, urine 2022 023 [facility] [place], [address] [place] [address], [place], [address], 3 06:08:04 Referral None recorded. Procedures None recorded. Surgeries None recorded. Imaging None recorded. Medication Orders Macrobid 100 mg capsule 2022 023 [id number], [address], [place], [id number], 3 16:45:02 Patient TargetsNo targets recorded. Patient Instructions Encounter Date Encounter Id Patient Instructions Last Modified By Organization Details Last Modified Time 09/29/2022 [id number] We recommend you get a repeat urinalysis in 2 weeks to ensure that any abnormalities have resolved. If urine abnormalities persist, you will likely need further testing or treatment. We will contact you within 3 to 5 days with the results of your lab test. If you have not heard back from us within that time frame, please feel free to contact our office regarding your results. Go to the Emergency Department immediately if your symptoms worsen or if you develop new symptoms that concern you. Drink plenty of fluids You should follow-up with your PCP in 4-5 days, or at any time if your condition does not improve or worsens. Any acute change should prompt a visit to the nearest Emergency Department. [email or web address] Not available 09/29/2022 16:35:38 Reason for Referral None Reported. Results Created Date Observation Date Name Description Value Unit Range Abnormal Flag Note LastModifiedBy Organization Detail LastModifiedTime 09/30/1910/01/2022 URINE CULTU RECARMELINA urine culture, routine FINAL REPORT Not Available [facility] ([facility]) [address] [facility], [place], [address], 10/01/2022 06:08:04 09/30/1910/01/2022 URINE CULTU RECARMELINA result 1 NO GROWTH Not Available [facility] ([facility]) [address] [facility], [place], [address], 10/01/2022 06:08:04 09/30/1909/29/2022 urina lysis , dipst ick Unknown Analyte Normal = light yellow Not Available [facility] [address], [address], 09/29/2022 15:56:18 09/30/19 23 09/29/2022 urina lysis , dipst ick Unknown Analyte Yellow Not Available [address], [address], 09/29/2022 15:56:18 09/30/19 23 09/29/2022 urina lysis , dipst ick Unknown Analyte Normal = clear Not Available [facility] [address], [address], 09/29/2022 15:56:18 09/30/19 23 09/29/2022 urina lysis , dipst ick Unknown Analyte Clear Not Available [address] [place] [address] [place], [address], 09/29/2022 15:56:18 09/30/19 23 09/29/2022 urina lysis , dipst ick Unknown Analyte Normal = negati ve Not Available [address]99eveline chao [address], [place], [address], 09/29/2022 15:56:18 09/30/19 23 09/29/2022 urina lysis , dipst ick Unknown Analyte Negati ve Not Available [facility] [address], [place], [address], 09/29/2022 15:56:18 09/30/19 23 09/29/2022 urina lysis , dipst ick Unknown Analyte Normal = Negati ve Not Available [address], [place], [address], 09/29/2022 15:56:18 09/30/19 23 09/29/2022 urina lysis , dipst ick Unknown Analyte Small Not Available [address], [place], [address], 09/29/2022 15:56:18 09/30/19 23 09/29/2022 urina lysis , dipst ick Unknown Analyte Normal = Negati ve Not Available [facility] [address], [place], [address], 09/29/2022 15:56:18 09/30/19 23 09/29/2022 urina lysis , dipst ick Unknown Analyte Negati ve Not Available [facility] [address], [place], [address], 09/29/2022 15:56:18 09/30/19 23 09/29/2022 urina lysis , dipst ick Unknown Analyte Normal = 1.010, 1.015, 1.020 Not Available eveline chao [address], [place], [address], 09/29/2022 15:56:18 09/30/19 23 09/29/2022 urina lysis , dipst ick Unknown Analyte 1.030 Not Available [facility] [address], [place], [address], 09/29/2022 15:56:18 09/30/19 23 09/29/2022 urina lysis , dipst ick Unknown Analyte Normal = Negati ve Not Available eveline chao [address], [place], [address], 09/29/2022 15:56:18 09/30/19 23 09/29/2022 urina lysis , dipst ick Unknown Analyte Negati ve Not Available eveline chao [address], [place], [address], 09/29/2022 15:56:18 09/30/19 23 09/29/2022 urina lysis , dipst ick Unknown Analyte Normal = 6.5, 7.0, 7.5, 8.0 Not Available eveline chao [address], [place], [address], 09/29/2022 15:56:18 09/30/19 23 09/29/2022 urina lysis , dipst ick Unknown Analyte 5.0 Not Available [address], [place], [address], 09/29/2022 15:56:18 09/30/19 23 09/29/2022 urina lysis , dipst ick Unknown Analyte Normal = Negati ve Not Available [facility] [address], [place], [address], 09/29/2022 15:56:18 09/30/19 23 09/29/2022 urina lysis , dipst ick Unknown Analyte Trace Not Available [email or web address], [place], [address], 09/29/2022 15:56:18 09/30/19 23 09/29/2022 urina lysis , dipst ick Unknown Analyte Normal = 0.2, 1.0 Not Available eveline chao [address], [place], [address], 09/29/2022 15:56:18 09/30/19 23 09/29/2022 urina lysis , dipst ick Unknown Analyte 0.2 E.U./d L Not Available eveline chao [address], [place], [address], 09/29/2022 15:56:18 09/30/19 23 09/29/2022 urina lysis , dipst ick Unknown Analyte Normal = Negati ve Not Available eveline chao [address], [place], [address], 09/29/2022 15:56:18 09/30/19 23 09/29/2022 urina lysis , dipst ick Unknown Analyte Normal = Negati ve Not Available eveline chao [address], [place], [address], 09/29/2022 15:56:18 09/30/19 23 09/29/2022 urina lysis , dipst ick Unknown Analyte Negati ve Not Available eveline chao [address], [place], [address], 09/29/2022 15:56:18 09/30/19 23 09/29/2022 urina lysis , dipst ick Unknown Analyte Negati ve Not Available [email or web address], [address], 09/29/2022 15:56:18 Result Notes None recorded. Problems Name Problem SNOMED Code Status Onset Date Resolution Date Notes Provider Name and Address Organization Details Recorded Time Asthma 561511121 Active 2022 Aleah Bartlett null, PA - [facility] 15:55:04 Hypothyroidism 36643843 Active 2022 Aleah Julián null, PA - [facility] 15:55:13 Neuropathy 050704917 Active 2022 Aleah Bartlett null, PA - [facility] 15:55:18 Problem Notes None recorded. Procedures Surgical History Date Name Laterality Status Provider Name and Address Organization Details Recorded Time cholecystectomy completed Aleah Julián P A - [facility] 09/29/2022 15:55:45 hernia repair completed Aleah Julián PA - [facility] 09/29/2022 15:55:51 lumbar hernioplasty completed Aleah Bee be PA - [facility] 09/29/2022 15:56:03 hysterectomy completed Aleah Bartlett PA - [facility] 09/29/2022 15:56:10 Imaging Results None recorded. Procedure Notes None recorded. Medical Equipment None Reported. Allergies Allergen ID Allergen Name Allergen Category Reaction Reaction Severity Criticality Documentation Date Start Date Code Code System Note Provider Name and Address Organization Details Recorded Time 223827 Imitrex medicatio n Not available Not available Not available 09/29/2022 03562 3 RxNorm Aleah Julián null, PA - [facility] 15:53:19 800764 morphine medicatio n Not available Not available Not available 09/29/2022 7052 RxNorm Aleah Julián null, PA - [facility] 15:53:23 Medications Name Sig Start Date Stop Date Status Note LastModified by Organization Details LastModified Time tetracyclin e 500 mg capsule TAKE 1 CAPSULE ORALLY EVERY 6 HOURS FOR 14 DAYS 09/29 completed Not Available Not Available Not Available nystatin 100,000 unit/mL oral suspension PLACE 1 ML IN CHEEK 2 TIMES A DAY FOR 30 DAYS ADMINISTE R 1/2 OF DOSE IN EACH SIDE OF THE MOUTH active Not Available Not Available No t Available gabapentin 600 mg tablet TAKE 1 TABLET ORALLY 3 TIMES A DAY FOR 90 DAYS active Not Available Not Available No t Available loperamide 2 mg capsule PLEASE SEE ATTACHED FOR DETAILED DIRECTION S active Not Available Not Available No t Available trazodone 50 mg tablet TAKE 1 TABLET BY MOUTH DAILY AT BEDTIME NEEDED FOR SLEEP FOR 90 DAYS 09/29 completed Not Available Not Available Not Available cefpodoxime 100 mg tablet TAKE 1 TABLET BY MOUTH TWICE A DAY 09/29 completed Not Available Not Available Not Available phenazopyri dine 200 mg tablet TAKE 1 TABLET BY MOUTH THREE TIMES A DAY FOR 3 DAYS 09/29 completed Not Available Not Available Not Available metronidazo le 250 mg tablet TAKE 1 TABLET ORALLY 4 TIMES A DAY FOR 14 DAYS 09/29 completed Not Available Not Available Not Available metronidazo le 500 mg tablet TAKE 1 TABLET BY MOUTH TWICE A DAY FOR 7 DAYS 09/29 completed Not Available Not Available Not Available sulfamethox azole 800 mg-trimetho prim 160 mg tablet TAKE 1 TABLET BY MOUTH TWICE A DAY FOR 7 DAYS 09/29 completed Not Available Not Available Not Available omeprazole 40 mg capsule,del ayed release TAKE 1 CAPSULE BY MOUTH EVERY DAY active Not Available Not Available No t Available levothyroxi ne 75 mcg tablet TAKE 1 TABLET ORALLY DAILY FOR 90 DAYS active Not Available Not Available No t Available Macrobid 100 mg capsule Take 1 capsule every 12 hours by oral route with meals for 7 days. 2022 active Not Available Not Available Not Avai lable oxycodone-a cetaminophe n 5 mg-325 mg tablet TAKE 1 TABLET BY MOUTH EVERY 4 TO 6 HOURS NEEDED FOR PAIN 09/29 completed Not Available Not Available Not Available terbinafine HCl 250 mg tablet TAKE 1 TABLET BY MOUTH EVERY DAY active Not Available Not Available No t Available levothyroxi ne 88 mcg tablet TAKE 1 TABLET BY MOUTH EVERY DAY FOR 90 DAYS active Not Available Not Available No t Available methocarbam ol 750 mg tablet TAKE 1 TABLET BY MOUTH EVERY 6 HOURS NEEDED FOR MUSCLE SPASM active Not Available Not Available No t Available trazodone 100 mg tablet TAKE 1 TABLET ORALLY BEDTIME NEEDED FOR FOR INSOMNIA FOR 90 DAYS 09/29 completed Not Available Not Available Not Available phenazopyri dine 100 mg tablet TAKE 1 TABLET BY MOUTH THREE TIMES A DAY NEEDED FOR URINARY IRRITATIO N 09/29 completed Not Available Not Available Not Available montelukast 10 mg tablet TAKE 1 TABLET BY MOUTH EVERY DAY FOR ASTHMA active Not Available Not Available No t Available zolpidem 5 mg tablet TAKE 1 TABLET BY MOUTH EVERY DAY AT BEDTIME NEEDED FOR SLEEP FOR 30 DAYS 09/29 completed Not Available Not Available Not Available ibuprofen 600 mg tablet TAKE 1 TAB BY MOUTH EVERY 6 HOURS NEEDED FOR PAIN active Not Available Not Available No t Available ondansetron 4 mg disintegrat ing tablet DISSOLVE 1 TABLET UNDER THE TONGUE EVERY 8 HOURS NEEDED FOR NAUSEA AND VOMITING active Not Available Not Available No t Available Ventolin HFA 90 mcg/actuati on aerosol inhaler 2 PUFFS INHALED EVERY 6 HOURS NEEDED FOR SHORTNESS OF BREATHING /WHEEZING FOR 30 DAYS active Not Available Not Available No t Available Stomach Relief 262 mg chewable tablet CHEW 2 TABLETS 4 TIMES DAILY FOR 14 DAYS 09/29 completed Not Available Not Available Not Available cholestyram ine (with sugar) 4 gram powder for susp in a packet PLEASE SEE ATTACHED FOR DETAILED DIRECTION S active Not Available Not Available No t Available bupropion HCl XL 150 mg 24 hr tablet, extended release TAKE 1 TABLET BY MOUTH EVERY DAY IN THE MORNING active Not Available Not Available No t Available Fiber Therapy (methylcell ulose) 500 mg tablet TAKE 1 TABLET BY MOUTH TWICE A DAY active Not Available Not Available No t Available Symbicort 160 mcg-4.5 mcg/actuati on HFA aerosol inhaler INHALE 2 PUFFS INTO LUNGS 2 TIMES A DAY active Not Available Not Available No t Available Vitamin D3 50 mcg (2,000 unit) capsule TAKE 1 CAPSULE BY MOUTH EVERY DAY FOR 90 DAYS active Not Available Not Available No t Available Flowflex COVID-19 Antigen Home Test kit USE ACCORDING TO MANUFACTU RER'S DIRECTION S active Not Available Not Available No t Available Vitals Date Recorded Body weight Body mass index (BMI) Body height Respiratory rate Oxygen saturation Oxygen saturation in Arterial blood by Pulse oximetry Heart rate Body temperature Systolic blood pressure Diastolic blood pressure Provider Name and Address Organization Details Last Updated DateTime 3 628991. 84 g 35.6 kg/m2 171.45 cm 20 /min 98 % 98 % 69 /min 98 [degF] 107 mm[Hg] 74 mm[Hg] Aleah Gallego PA - [facility] 15:57:18 Social History Question Answer Notes LastModified by Organizat ion Details LastModified Time Tobacco Smoking Status Never Smoker Aleah Gallego delfina PA - [facility] 09/29/2022 15:55:28 What Is Your Level Of Alcohol Consumption? None Information not available 09/29/2022 Have You Had Direct Contact, Or Contact During Intimacy, With Monkeypox Rash, Scabs, Or Body Fluids From A Person With Monkeypox? No Information not available 09/29/2022 Do You Use Any Illicit Or Recreational Drugs? No Information not available 09/29/2022 Have You Recently Traveled Abroad? No Information not available 09/29/2022 Do You Or Have You Ever Used Any Other Forms Of Tobacco Or Nicotine? No Information not available 09/29/2022 Sex: Unknown Functional Status None recorded. Mental Status None recorded. Family History Relationship Description Onset Age of this Age Resolved Age Notes LastModified by Organization Details LastModified Time Father No current problems or disability Not available 09/29 15:55:20 Mother No current problems or disability Not available 09/29 15:55:20 Medical History No medical history recorded. Gynecological History Statement/Question Response Is there any chance of ? No LMP N/A Obstetrics History GPAL:G 0 P 0 0 0 0 Past Encounters Encounter ID Performer Location Encounter Start Date Encounter Closed Date Diagnosis/Indication Diagnosis SNOMED-CT Code Diagnosis ICD10 [place] [id number] [place] [address] [address] 09/29/2022 15:31:22 09/29/2022 16:41:24 Acute urinary tract infection 898015605 N39.0 Health Concerns Section Related Observation LastModified by Organization Detai ls LastModified Time None Recorded Concern Status LastModified by Organization Details LastModified Time None Recorded Advance Directives Directive None Recorded Payers Encounter Date Sequence Insurance Name Policy Number Policy Morgan Covered Member ID Morgan Member ID Guarantor Name 09/29/2022 1 [facility]AN (MEDICAID HMO) PHI Sadlaña [id number] Nena Saldaña Notes Date Note Type Note Provider Name and Address Organization Details Recorded Time 3 text/html Urinary Complaint FemaleReported bypatient.source of patient informationInformation obtained from patient; Patient arrived at Urgent Care ambulatory UTI Symptoms:no blood in the urine; no pain during urination; no vaginal discharge; no urgency; no pain in the flank; no fever/chills; no incontinence; no recurrent UTI; no known exposure to STDNotes:frequency and urgency x 1 day. denies any fever or fever with chills, denies any History of renal stone or bladder issues. frequency and urgency x 1 day. denies any fever or fever with chills, denies any History of renal stone or bladder issues. Senthil Ivy NP [address] [place], [address], PA - [facility] 09/29/2022 16:40:41 OBGyn Episode No OBEpisode recorded.
== END 2024-02-13 10:30 | disposition home or self-care (01) ==
PROVIDERS: PCP Internal Medicine; Visit Provider Internal Medicine
DX: J30.9 Allergic rhinitis, unspecified (principal); J45.909 Unspecified asthma, uncomplicated; E66.9 Obesity, unspecified; R40.0 Somnolence
CPT/HCPCS: 94010; 99213

== ENCOUNTER → 2024-02-13 10:31 | Outpatient (REF) | payer OTHER, SELFPAY | LOC: HO.SL 10:31 | PROVIDERS: PCP Internal Medicine; Visit Provider Internal Medicine | DX: G47.33 Obstructive sleep apnea (adult) (pediatric) (principal); R40.0 Somnolence; E66.9 Obesity, unspecified | CPT/HCPCS: 94010; 95806; 99212 ==

== ENCOUNTER 2024-05-20 10:31 | Outpatient (AMB) | payer OTHER, SELFPAY ==
[2024-05-20 10:36] VITALS: BP 125/75; PULSE 72; O2SAT 98; BMI 37.1
--- NOTE | 2024-05-20 10:36 | A.OFFVIS_ITS ---
Vital Signs 05/20/24 10:36 Height 5 ft 7 in Weight 236 lb 15.951 oz BMI 37.1 BP 125/75 Blood Pressure Location Lt brachial Position Sitting Pulse 72 Pulse Source Pulse Oximeter Pulse Oximetry (%) 98 Oxygen Delivery Method Room Air Intake Visit Reasons: asthma Intake Note: pt is here for follow up and states a few weeks ago and was sick and now is short of breath, coughing and wheezing. she is also having nosebleeds on left side lasting about 5 min, pt needs a refill on Ventolin HFA [employer] Required: No Allergies sumatriptan [From IMITREX] Allergy (Intermediate, Verified 05/20/24 10:39) rash, shortness of breath morphine Adverse Reaction (Severe, Verified 05/20/24 10:39) Migraine Medication List - Last Reconciled 05/20/24 by Gary Schmidt MD budesonide-formoterol 160-4.5 mcg/actuation (Symbicort) 2 puffs inhalation BID cholestyramine (with sugar) 4 gram 4 grams PO BID 30 days fluoxetine 10 mg PO DAILY 90 days fluticasone propionate 50 mcg/actuation 2 sprays intranasal DAILY gabapentin 600 mg PO TID 90 days levothyroxine 88 mcg PO DAILY 90 days loperamide (Imodium A-D) 2 mg PO Q6H PRN montelukast 10 mg PO DAILY omeprazole 40 mg PO DAILY Ventolin HFA 90 mcg/actuation (albuterol sulfate) 2 puffs inhalation Q6H PRN NS Do you need a note to return to daycare/school/sports/work: No HPI HPI asthma: Details: Nena is here today for six-month follow-up for her bronchial asthma She reports going to urgent care about 2 weeks ago with upper respiratory symptoms but was not prescribed any steroids or antibiotics. She reports her symptoms have resolved and overall she is feeling well She continues to have occasional nosebleeds from the left nostril that is resolved by putting pressure on the left nare She reports occasional nasal congestion in sore throat that is relieved through the use of her flonase nasal spray She denies any increase in shortness of breath . [facility] Medical History (Updated 05/20/24 @ 11:20 by Gary Schmidt MD) Epistaxis JAMAR (obstructive sleep apnea) Somnolence, daytime Obesity (BMI 35.0-39.9 without comorbidity) Bronchitis Post covid-19 condition, unspecified Family history of breast cancer Hypovitaminosis D Insomnia Left foot pain Left wrist pain Bloody stools Family history of colon cancer Colon polyps Physical exam Surgical History History of umbilical hernia repair (~12/07/21) History of cholecystectomy History of carpal tunnel surgery History of colonoscopy History of bilateral breast reduction surgery History of back surgery History of hysterectomy Family History Father Hypothyroid Thyroid cancer Asthma Migraine Mother Breast cancer, Onset Age: 21 Social History Housing: House Alcohol intake: current Alcohol intake frequency: holidays/special occasions only Alcohol type: wine Patient Tobacco Use Status: Never used Tobacco e-Cigarette/Vaping Use: Never Used Second Hand Smoke Exposure: No service: No Current occupational status: unemployed Cognitive needs: No Hearing needs: No Vision needs: No Review of Systems Const All systems reviewed & are unremarkable except as noted in HPI and below Eyes Reports no additional complaints, Denies change in vision and Reports other visual disturbances ENT Reports epistaxis (Mild intermittent from the left nostril, controlled with local pressure.) Card Reports chest pain at rest, Reports chest pain with activity, Denies edema, Denies irregular heart rhythm, Denies claudication, Reports dyspnea, Reports dyspnea on exertion, Denies orthopnea, Denies paroxysmal nocturnal dyspnea and Denies slow heart rate Resp Reports cough, Reports dyspnea, Reports dyspnea on exertion and Reports wheezing (Patient still reports intermittent wheezing) GI Reports no additional complaints and Reports nausea Reports no additional complaints Musc Reports no additional complaints and Reports back pain (Mild) Skin/Breast Reports system reviewed and no additional complaints, except as documented Neuro Reports no additional complaints Psych Reports no additional complaints Aller/Immun Reports wheezing (Patient still reports intermittent wheezing) Physical Exam Vital Signs: Last Vital Signs Pulse 72 05/20/24 10:36 BP 125/75 05/20/24 10:36 Pulse Ox 98 05/20/24 10:36 Oxygen Delivery Method Room Air 05/20/24 10:36 BMI result Body Mass Index 37.1 Const General: healthy appearing, comfortable, no acute distress, alert and awake Orientation/consciousness: patient oriented x3 HEENT Head: Yes normal to inspection General nose exam: No nasal polyps present, No nasal discharge present, no epistaxis (There is bulge to the left of the anterior septum, no active bleeding) and Other nasal findings present (DNS to left, mild nasal congestion) Face and sinus: Yes sinuses nontender Mouth: oropharynx normal Throat: Yes posterior oropharynx normal Eyes General: appearance normal, both eyes and all related structures Neck Neck: Yes normal visual inspection, Yes no lymphadenopathy, Yes trachea midline and Yes no JVD Thyroid: Thyroid normal Chest Chest palpation & inspection: normal inspection of the chest, normal palpation of entire chest wall and no tenderness Resp Other: Percussion note resonant, breath sounds are generally diminished. No crepitations or wheezes were heard. Cardio Palpation: normal PMI Rate: regular rate Rhythm: regular rhythm Heart sounds: no gallops and no murmurs Peripheral pulses: Peripheral pulses 2+ throughout GI Palpation (GI): Soft to palpation, nontender, No hepatosplenomegaly present and no masses Auscultation: normal bowel sounds Back/Spine/Pelvis Thoracic/Lumbar Spine: thoracic and lumbar spine normal to inspection Skin General skin exam: no rashes or lesions noted Neuro General: patient oriented x3 and no focal motor deficits Cranial nerves: Yes CN's II-XII intact bilaterally Extrem General: Yes normal to inspection, Yes no clubbing, cyanosis or edema and Yes no calf tenderness Psych Appearance: grossly normal and well kempt Speech and movement: Normal speech and movement present Results Reviewed Results Reviewed: HST negative on 02/13/2024 Total sleep time AHI was 0.8 with snoring for 15% of the sleep time Assessment & Plan Assessment & Plan (1) Allergic asthma: Comment: This patient has chronic allergic bronchial asthma, Her allergens are, usual environmental agents, including dogs that she has at home. One previous CBC result shows eosinophilia of 4.5%.but last CBC on 06/28/22 showed Eiosiniphil count only 3.2 % The bronchial asthma seems to be fairly well controlled at this time. Code(s): J45.909 - Unspecified asthma, uncomplicated Category: Medical Plan: Continue with montelukast 10 mg at night, continue Symbicort 160-4.5 mcg 2 puffs b.i.d. daily And Ventolin HFA 2 puffs every 6 hours as needed (2) JAMAR (obstructive sleep apnea): Comment: The body weight physical features and her symptoms are pointing to possible obstructive sleep apnea. HST performed on 02/13/2024, is essentially negative for sleep apnea as total sleep time AHI is 0.8, snoring for 15% of the sleep time. Code(s): G47.33 - Obstructive sleep apnea (adult) (pediatric) Category: Medical Plan: Explained the results of sleep study to the patient. Still is a good idea to lose weight. (3) Allergic rhinitis: Comment: She has history of chronic allergic rhinitis which flares up at the change of weather. Usually has remained well controlled with ongoing medical regimen. She has occasional bleeding from the left nostril probably due to increased nasa l congestion. Code(s): J30.9 - Allergic rhinitis, unspecified Category: Medical Plan: Continue use of Flonase 50 mcg 2 sprays in each nostril daily. Try to avoid the triggers as much as possible . (4) Obesity (BMI 35.0-39.9 without comorbidity): Comment: Patient is grossly obese, her weight fluctuates by a few lb but overall has not been able to lose weight. Current BMI= 37.1 Code(s): E66.9 - Obesity, unspecified Category: Medical Plan: Patient educated on weight loss, patient educated to increase physical activity each day (5) Epistaxis: Comment: minimal bleeding from side of the nose which is self controlled by local pressure. On examination there is uremia hyperemia of the anterior septum Code(s): R04.0 - Epistaxis Category: Medical Plan: Patient instructed on how to self control the bleeding from the left nostril Medications: Refilled Ventolin HFA 90 mcg/actuation (albuterol sulfate) 2 puffs inhalation Q6H PRN 18 ea 3RF for wheezing NS Coding Level of Care Code Est Pt Level 3 (79695) Diagnoses Allergic asthma J45.909 JAMAR (obstructive sleep apnea) G47.33 Allergic rhinitis J30.9 Obesity (BMI 35.0-39.9 without comorbidity) E66.9 Epistaxis R04.0
--- OUTSIDE RECORDS SUMMARY | 2024-05-20 11:53 | XMS_ITS | Clinical Summary ---
Author Organization [facility] Address [address] [place] [address] Care Team Providers Care Check Totaler Name Role Phone Laci Domínguez MD Primary Care Provider [phone] Allergies Active Allergy Reactions Criticality Noted Date Comments Sumatriptan 10/20/2015 itchy Medications albuterol HFA (PROAIR HFA ; PROVENTIL HFA ; VENTOLIN HFA) 90 mcg/actuation inhaler Inhale 2 Puffs into the lungs every 4 hours as needed for Cough or Wheezing. 6 Active cetirizine (ZyrTEC) 10 mg tablet Take 1 tablet (10 mg total) by mouth 1 (one) time each day. 5 Active cholestyramine (QUESTRAN) 4 gram packet MIX AND DRINK 1 PACKET BY MOUTH THREE TIMES DAILY WITH MEALS 6 Active dicyclomine (BENTYL) 20 mg tablet Take 1 Tab by mouth every 8 hours. 6 Active DULoxetine (CYMBALTA) [address] capsule Take 1 capsule (30 mg total) by mouth 1 (one) time each day. 7 Active fluticasone propionate (FLONASE) 50 mcg/actuation nasal spray 2 sprays in each nostril daily 5 Active fluticasone propion-salmete roL (ADVAIR DISKUS) 500-50 mcg/dose diskus inhaler Inhale 1 Puff into the lungs every 12 hours. rinse and spit after each inhalation 5 Active gabapentin (NEURONTIN) 600 mg tablet TAKE 1 TABLET BY MOUTH FOUR TIMES DAILY 7 Active ipratropium-alb uteroL (DUONEB) 0.5-2.5 mg/3 mL nebulizer solution Inhale 3 mL into the lungs 4 times daily. 5 Active metroNIDAZOLE (METROGEL) 1 % gel Apply to face daily 7 Active omeprazole (PriLOSEC) [address] capsule Take 1 capsule (40 mg total) by mouth 1 (one) time each day. 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 Irritable bowel syndrome with diarrhea 6 Adebayo's thyroiditis 11/17/2015 Abnormal CXR 12/05/2014 Allergic rhinitis due to allergen 12/05/2014 Fibromyalgia 04/08/2014 Asthma 11/01/2013 Colonic polyp 11/01/2013 Depression 11/01/2013 GERD (gastroesophageal reflux disease) 4 Insomnia 11/01/2013 Migraine 11/01/2013 Immunizations Name Administration Dates Next Due Tdap Tetanus diptheria acell ular pertussis (Boostrix; Adacel) 7yo and older 05/06/2014 Surgical History Surgery Date Site/Laterality Comments HYSTERECTOMY PROCEDURE: HISTORICAL HYSTERECTOMY; COMMENT: due to endometriosis, has ovaries BREAST BIOPSY PROCEDURE: BX BREAST; PERC NEEDLE CORE W/IMAG GUID; COMMENT: RT BREAST SURGERY PROCEDURE: [place] UNLISTED PROCEDURE BREAST; COMMENT: RT SIDE MASS REMOVED AT 20 NONCANCEROUS BREAST REDUCTION PROCEDURE: [place] BREAST REDUCTION COLONOSCOPY 12/18/09 [facility] PROCEDURE: [place] COLONOSCOPY STOMA W/RMVL GORDON POLYP/OTH LES SNARE; COMMENT: TV adenoma with focal high grade dysplasia COLONOSCOPY 07/12/12 [facility] PROCEDURE: [place] COLONOSCOPY STOMA W/RMVL GORDON POLYP/OTH LES SNARE; COMMENT: adenoma; repeat under propofol in 2015 COLONOSCOPY 08/07/14 [facility] PROCEDURE: HISTORICAL COLONOSCOPY; COMMENT: hemorrhoids but poor bowel prep. Repeat in 1 year. under propofol ESOPHAGOGASTRODUODENOSCOPY 08/07/14 [facility] PROCEDURE: [place] ESOPHAGOGASTRODUODENOSCOPY TRANSORAL DIAGNOSTIC; COMMENT: normal, with nl esophageal biopsies COLONOSCOPY W/ BIOPSIES 09/22/15 PROCEDURE: [place] COLONOSCOPY W/BIOPSY SINGLE/MULTIPLE; COMMENT: hemorrhoids; normal colonic random biopsies; repeat in 5 years under propofol Medical History Medical History Date Comments Migraine 11/01/2013 DX:Migraine Depression 11/01/2013 DX:Depression Colonic polyp 11/01/2013 DX:Colonic polyp Asthma 11/01/2013 DX:Asthma GERD (gastroesophageal reflux disease) 11/01/2013 DX:GERD (gastroesophageal reflux disease) Insomnia 11/01/2013 DX:Insomnia Family History Medical History Relation Name Comments Ovarian cancer Father's side 1 Aunt, reci eved chemo Colon cancer Maternal Grandfather Breast cancer Maternal Grandmother dx at 40 passed fred y at Ovarian cancer Maternal Grandmother dx at 40 passed aw ay at Breast cancer Mother Dx at 21 at Breast cancer Mother's side 1 Great Aunt Relation Name Status Comments Father's side 1 Father's side 2 Maternal Grandfather Maternal Grandmother dx at 40 at Mother Dx at 21 at Mother's side 1 Mother's side 2 Social History Tobacco Use Types Packs/Day Years Used Date Smoking Tobacco: Never Smokeless Tobacco: Never Alcohol Use Standard Drinks/Week Comments Yes 0 (1 standard drink = 0.6 oz pur e alcohol) Comments Unknown Sex and Gender Information Value Date Recorded Sex Assigned at Not on file Legal Sex Female 12:16 PM EST Gender Identity Not on file Sexual Orientation Not on file Obstetrics History Plan of Treatment Health Maintenance Due Date Last Done Comments Breast Cancer Screening 1974 Hepatitis B Vaccines (1 of 3 - 19+ 3-dose series) 1993 Pneumococcal Vaccine: Pediat rics (0 to 5 Years) and At-Risk Patients (6 to 64 Years) (1 of 2 - PCV) 1993 Colorectal Cancer Screening: Colonoscopy 02/01/2022 09/22/2015 Depression Screening 02/01/2022 HIV Screening 02/01/2022 Hepatitis C Screening 02/01/2022 Social Influencers of Health Screening 02/01/2022 COVID-19 Vaccine (1 - 2023-2 5 season) 2023 Influenza Vaccine (#1) 2023 DTaP,Tdap,and Td Vaccines (2 - Td or Tdap) 05/06/2024 05/06/2014 HIB Vaccines Aged Out No longer eligi ble based on patient's age to complete this topic HPV Vaccines Aged Out No longer eligi ble based on patient's age to complete this topic Hepatitis A Vaccines Aged Out No long er eligible based on patient's age to complete this topic IPV Vaccines Aged Out No longer eligi ble based on patient's age to complete this topic MMR Vaccines Aged Out No longer eligi ble based on patient's age to complete this topic Meningococcal ACWY Vaccine Aged Out N o longer eligible based on patient's age to complete this topic Meningococcal B Vacine Aged Out No lo nger eligible based on patient's age to complete this topic RSV Immunization Patients Un kalyn 20 months Aged Out No longer eligible b ased on patient's age to complete this topic Varicella Vaccines Aged Out No longer eligible based on patient's age to complete this topic Procedures Procedure Name Priority Date/Time Associated Diagnosis Comments COLONOSCOPY Routine 09/22/2015 from Last 3 Months or Most Recently Relevant to Health Maintenance Results * Colonoscopy (09/22/2015) Colonoscopy abstracted,no interpretation Anatomical Region Laterality Modality Other us Historical Provider HEALTH MAINTENANCE Final Result from Last 3 Months or Most Recently Relevant to Health Maintenance Care Teams Check Totaler Relationship Specialty Start Date End Date Laci Domínguez MD PCP - General Internal Medicine 11/01/13
--- OUTSIDE RECORDS SUMMARY | 2024-05-20 11:54 | XMS_ITS | Data Portability ---
Author Organization [facility] Address [address] [place] [address] Assessment No assessment recorded. Plan of Treatment Reminders Order Date Submit Date Provider Last Modified By Organization Details Last Modified Time Details Appointments None recorded. Lab urinalysis , dipstick 2022 023 [email or web address] [facility], [address] [place] [address], [id number], 3 16:35:45 culture, urine 2022 023 [facility], [address] [place] [address], , [address], 3 06:08:04 Referral None recorded. Procedures None recorded. Surgeries None recorded. Imaging None recorded. Medication Orders Macrobid 100 mg capsule 2022 023 [id number], [address] [place], [place], [id number], 3 16:45:02 Patient TargetsNo targets recorded. Patient Instructions Encounter Date Encounter Id Patient Instructions Last Modified By Organization Details Last Modified Time 09/29/2022 [id number] We recommend you get a repeat urinalysis [...] culture, routine FINAL REPORT Not Available [facility] ([facility]) [address] [facility], [place], [address], 10/01/2022 06:08:04 09/30/1910/01/2022 URINE CULTU RECARMELINA result 1 NO GROWTH Not Available [facility] ([facility]) [address] [facility], [place], [address], 10/01/2022 06:08:04 09/30/1909/29/2022 urina lysis , dipst ick Unknown Analyte Normal = light yellow Not Available [facility] [address], [address], 09/29/2022 15:56:18 09/30/19 23 09/29/2022 urina lysis , dipst ick Unknown Analyte Yellow Not Available [address], [address], 09/29/2022 15:56:18 09/30/19 23 09/29/2022 urina lysis , dipst ick Unknown Analyte Normal = clear Not Available [facility] [address], [address], 09/29/2022 15:56:18 09/30/19 23 09/29/2022 urina lysis , dipst ick Unknown Analyte Clear Not Available [address] [place] [address] [place], [address], 09/29/2022 15:56:18 09/30/19 23 09/29/2022 urina lysis , dipst ick Unknown Analyte Normal = negati ve Not Available [address]eveline chao [address], [place], [address], 09/29/2022 15:56:18 09/30/19 23 09/29/2022 urina lysis , dipst ick Unknown Analyte Negati ve Not Available [facility] [address], [place], [address], 09/29/2022 15:56:18 09/30/19 23 09/29/2022 urina lysis , dipst ick Unknown Analyte Normal = Negati ve Not Available [address], [place], [address], 09/29/2022 15:56:18 09/30/19 23 09/29/2022 urina lysis , dipst ick Unknown Analyte Small Not Available [address], [place], [address], 09/29/2022 15:56:18 09/30/19 23 09/29/2022 urina lysis , dipst ick Unknown Analyte Normal = Negati ve Not Available [facility] [address], [place], [address], 09/29/2022 15:56:18 09/30/19 23 09/29/2022 urina lysis , dipst ick Unknown Analyte Negati ve Not Available [facility] [address], [place], [address], 09/29/2022 15:56:18 09/30/19 23 09/29/2022 urina lysis , dipst ick Unknown Analyte Normal = 1.010, 1.015, 1.020 Not Available eveline chao [address], [place], [address], 09/29/2022 15:56:18 09/30/19 23 09/29/2022 urina lysis , dipst ick Unknown Analyte 1.030 Not Available [facility] [address], [place], [address], 09/29/2022 15:56:18 09/30/19 23 09/29/2022 urina lysis , dipst ick Unknown Analyte Normal = Negati ve Not Available eveline chao [address], [place], [address], 09/29/2022 15:56:18 09/30/19 23 09/29/2022 urina lysis , dipst ick Unknown Analyte Negati ve Not Available eveline chao [address], [place], [address], 09/29/2022 15:56:18 09/30/19 23 09/29/2022 urina lysis , dipst ick Unknown Analyte Normal = 6.5, 7.0, 7.5, 8.0 Not Available eveline chao [address], [place], [address], 09/29/2022 15:56:18 09/30/19 23 09/29/2022 urina lysis , dipst ick Unknown Analyte 5.0 Not Available [address], [place], [address], 09/29/2022 15:56:18 09/30/19 23 09/29/2022 urina lysis , dipst ick Unknown Analyte Normal = Negati ve Not Available [facility] [address], [place], [address], 09/29/2022 15:56:18 09/30/19 23 09/29/2022 urina lysis , dipst ick Unknown Analyte Trace Not Available [facility] [email or web address], [place], [address], 09/29/2022 15:56:18 09/30/19 23 09/29/2022 urina lysis , dipst ick Unknown Analyte Normal = 0.2, 1.0 Not Available eveline chao [address], [place], [address], 09/29/2022 15:56:18 09/30/19 23 09/29/2022 urina lysis , dipst ick Unknown Analyte 0.2 E.U./d L Not Available eveline chao [address], [place], [address], 09/29/2022 15:56:18 09/30/19 23 09/29/2022 urina lysis , dipst ick Unknown Analyte Normal = Negati ve Not Available eveline chao [address], [place], [address], 09/29/2022 15:56:18 09/30/19 23 09/29/2022 urina lysis , dipst ick Unknown Analyte Normal = Negati ve Not Available eveline chao [address], [place], [address], 09/29/2022 15:56:18 09/30/19 23 09/29/2022 urina lysis , dipst ick Unknown Analyte Negati ve Not Available eveline chao [address], [place], [address], 09/29/2022 15:56:18 09/30/19 23 09/29/2022 urina lysis , dipst ick Unknown Analyte Negati ve Not Available [facility]eline [email or web address], [address], 09/29/2022 15:56:18 Result Notes None recorded. Problems Name Problem SNOMED Code Status Onset Date Resolution Date Notes Provider Name and Address Organization Details Recorded Time Asthma 101356082 Active 2022 Aleah Boston null, PA - [facility] 15:55:04 Hypothyroidism 03452585 Active 2022 Aleah Boston null, PA - [facility] 15:55:13 Neuropathy 256688455 Active 2022 Aleah Boston null, PA - [facility] 15:55:18 Problem Notes None recorded. Procedures Surgical History Date Name Laterality Status Provider Name and Address Organization Details Recorded Time cholecystectomy completed Aleah Julián P A - [facility] 09/29/2022 15:55:45 hernia repair completed Aleah Boston PA - [facility] 09/29/2022 15:55:51 lumbar hernioplasty completed Aleah Bee be PA - [facility] 09/29/2022 15:56:03 hysterectomy completed Aleah Boston PA - [facility] 09/29/2022 15:56:10 Imaging Results None recorded. Procedure Notes None recorded. Medical Equipment None Reported. Allergies Allergen ID Allergen Name Allergen Category Reaction Reaction Severity Criticality Documentation Date Start Date Code Code System Note Provider Name and Address Organization Details Recorded Time 704584 Imitrex medicatio n Not available Not available Not available 09/29/2022 69090 3 RxNorm Aleah Julián null, PA - [facility] 15:53:19 [id number] morphine medicatio n Not available Not available [...] weight Body mass index (BMI) Body height Pain severity - 0-10 verbal numeric rating [Score] - Reported Respiratory rate Oxygen saturation Oxygen saturation in Arterial blood by Pulse oximetry Heart rate Body temperature Systolic blood pressure Diastolic blood pressure Provider Name and Address Organization Details Last Updated DateTime 3 895768. 84 g 35.6 kg/m2 171.45 cm 6 20 /min 98 % 98 % 69 /min 98 [degF] 107 mm[Hg] 74 mm[Hg] Aleah Gallego PA - [facility] 15:57:18 Social History Question Answer Notes LastModified by Organizat ion Details LastModified Time Tobacco Smoking Status Never Smoker Aleah Vaildavid mathis PA - [facility] 09/29/2022 15:55:28 What [...] Diagnosis/Indication Diagnosis SNOMED-CT Code Diagnosis ICD10 Code Diagnosis Note [id number] [place] [address] [address] [place] [phone] 09/29/2022 15:31:22 09/29/2022 16:41:24 Acute urinary tract infection 326530596 N39.0 Health Concerns Section Related Observation LastModified by Organization Detai ls LastModified Time None Recorded Concern Status LastModified by Organization Details LastModified Time None Recorded Advance Directives Directive None Recorded Payers Encounter Date Sequence Insurance Name Policy Number Policy Morgan Covered Member ID Morgan Member ID Guarantor Name 09/29/2022 1 [facility] NET PLAN (MEDICAID HMO) PHI Saldaña [id number] Nena Saldaña Notes Date Note Type Note [...] Ivy NP [address] [place], [address], [place] - [facility] 09/29/2022 16:40:41 OBGyn Episode No OBEpisode recorded.
== END 2024-05-20 10:57 | disposition home or self-care (01) ==
LOC: HO.HPS 10:31
PROVIDERS: PCP Internal Medicine; Visit Provider Internal Medicine
DX: J45.909 Unspecified asthma, uncomplicated (principal); G47.33 Obstructive sleep apnea (adult) (pediatric); R04.0 Epistaxis
CPT/HCPCS: 99213

== ENCOUNTER → 2024-05-20 10:31 | Outpatient (BNVA) | payer OTHER, SELFPAY | PROVIDERS: PCP Internal Medicine; Visit Provider Internal Medicine | DX: J45.909 Unspecified asthma, uncomplicated (principal); G47.33 Obstructive sleep apnea (adult) (pediatric); R04.0 Epistaxis; E66.9 Obesity, unspecified | CPT/HCPCS: 99212 ==

== ENCOUNTER 2024-07-04 08:25 | Outpatient (AMB) | payer OTHER, SELFPAY ==
--- NOTE | 2024-07-04 08:29 | MHC.PC.OV ---
Vital Signs 07/04/24 08:33 Height 5 ft 7 in Weight 230 lb BMI 36.0 BP 130/82 Blood Pressure Location Lt brachial Position Sitting Intake Visit Reasons: annual exam Intake Note: Patient here for an annual physical exam Well Site Drilling Engineer Required: Yes Well Site Drilling Engineer Language: Photogrammetric Compilation Specialist Name: Sharmin Gutierrez MD Information Interpreted: non-clinical & clinical Accompanied by: Self / Same As Patient Allergies sumatriptan [From IMITREX] Allergy (Intermediate, Verified 07/04/24 08:41) rash, shortness of breath morphine Adverse Reaction (Severe, Verified 07/04/24 08:41) Migraine Medication List - Last Reconciled 07/04/24 by Sharmin Gutierrez MD budesonide-formoterol 160-4.5 mcg/actuation (Symbicort) 2 puffs inhalation BID cholestyramine (with sugar) 4 gram 4 grams PO BID 30 days fluoxetine 10 mg PO DAILY 90 days fluticasone propionate 50 mcg/actuation 2 sprays intranasal DAILY gabapentin 600 mg PO TID 90 days levothyroxine 88 mcg PO DAILY 90 days loperamide (Imodium A-D) 2 mg PO Q6H PRN montelukast 10 mg PO DAILY omeprazole 40 mg PO DAILY Ventolin HFA 90 mcg/actuation (albuterol sulfate) 2 puffs inhalation Q6H PRN NS Tobacco use date assessed: 07/04/24 Dental Screening Dental Screen Date: 07/04/24 Did you have a dental visit in the last 12 months?: No Did you have a dental problem in the last 6 months where you did not have access to dental care?: No Was dental information given to patient?: Patient has dentist HPI HPI Comments History of Present Illness Details The patient is a 48-year-old female presenting for an annual physical examination. She reports a history of asthma, currently managed with Symbicort as directed by her regulatory affairs specialist. Depression is an ongoing concern, with current management using Fluoxetine, though she is considering a switch due to side effects. She manages hypothyroidism with a daily dose of Levothyroxine and faces challenges with weight management. Gastroesophageal reflux disease is controlled via Omeprazole. Snoring has been observed, potentially exacerbated by sinusitis; however, sleep apnea has been ruled out via a prior study. Surgeries include hysterectomy, back surgery for degenerative disc disease, and breast reduction. She experiences chronic pain in the left Achilles tendon, having received injections for relief. Current health management includes diet and exercise, with moderate alcohol intake and no smoking history. Screening updates are required as the last mammogram was a year ago and her previous colonoscopy was conducted in 2016. The patient requires a Tdap booster as it has been over ten years since her last tetanus vaccine. - Mammogram: Completed last year, renewal due as per regular screening guidelines. - Colonoscopy: Last performed in 2016, with the next recommended for the subsequent year. - Tdap Vaccine: Overdue (>10 years); planned for administration during this visit. - Diet and exercise discussion focusing on weight management. - Evaluation and adjustment of thyroid hormone levels and management of hypothyroidism. [facility] Medical History (Updated 07/04/24 @ 10:42 by Sharmin Gutierrez MD) Moderate recurrent major depression Epistaxis JAMAR (obstructive sleep apnea) Somnolence, daytime Obesity (BMI 35.0-39.9 without comorbidity) Bronchitis Post covid-19 condition, unspecified Family history of breast cancer Hypovitaminosis D Insomnia Left foot pain Left wrist pain Bloody stools Family history of colon cancer Colon polyps Physical exam Surgical History History of umbilical hernia repair (~12/07/21) History of cholecystectomy History of carpal tunnel surgery History of colonoscopy History of bilateral breast reduction surgery History of back surgery History of hysterectomy Family History Father Hypothyroid Thyroid cancer Asthma Migraine Mother Breast cancer, Onset Age: 21 Social History Housing: House Alcohol intake: current Alcohol intake frequency: holidays/special occasions only Alcohol type: wine Patient Tobacco Use Status: Never used Tobacco e-Cigarette/Vaping Use: Never Used Second Hand Smoke Exposure: No service: No Current occupational status: unemployed Cognitive needs: No Hearing needs: No Vision needs: No Questionnaire PHQ-9 Over the last 2 weeks, how often have you been bothered by any of the following problems? 1. Little interest or pleasure in doing things: not at all 2. Feeling down, depressed, or hopeless: not at all 3. Trouble falling or staying asleep, or sleeping too much: nearly every day 4. Feeling tired or having little energy: several days 5. Poor appetite or overeating: more than half the days 6. Feeling bad about yourself - or that you are a failure or have let yourself or your family down: not at all 7. Trouble concentrating on things, such as reading the newspaper or watching television: several days 8. Moving or speaking so slowly that other people could have noticed. Or the opposite - being so fidgety or restless that you have been moving around a lot more than usual: more than half the days 9. Thoughts that you would be better off or of hurting yourself in some way: not at all Total score: 9 Depression Screening Interpretation: Positive Depression Screening Follow-up: Existing condition and Follow-up Visit Requested Depression Screening Done: Yes 80493 - PHQ-9 Billing: Yes Source: Developed by Drs. Donn Mckeon, Rebecca Villalta, Meek Ricardo and colleagues, with an educational darrel from [employer]. Thrive Questionnaire Date Thrive assessed: 07/04/24 I am a: Patient What is your living situation today?: I have a steady place to live Within the past 12 months, did the food you bought not last and you didn't have the money to get more?: Never true Within the past 12 months, did you worry whether your food would run out before you got money to buy more?: Never true Do you have trouble paying for medicines?: No Do you have trouble getting transportation to medical appointments?: No Do you have trouble paying your heating and electricity bill?: No Do you have trouble taking care of your child, family member or friend?: No Do you have trouble with day-to-day activities such as bathing, preparing meals, shopping, managing finances, etc.?: No Are you currently unemployed and looking for a job?: No Are you interested in more education?: No Please select the resources that you would like help with: None Currently or been in a relationship where the following occur: No concerns reported THRIVE Score: 0 AUDIT C Alcohol Use Questionnaire (AUDIT-C) 1. How often do you have a drink containing alcohol?: Never Total Score: 0 Score Reviewed/Action Taken: No ALIZA-7 AMB Questionnaire ALIZA-7 Date ALIZA - 7 assessed: 07/04/24 Feeling nervous, anxious, or on edge: 2 = More than half the days Not being able to stop or control worryin = Not at all Worrying too much about different things: 1 = Several days Trouble relaxin = Several days Being so restless that it is hard to sit still: 2 = More than half the days Becoming easily annoyed or irritable: 0 = Not at all Feeling afraid as if something awful might happen: 1 = Several days Total ALIZA-7 score (0-4 normal; 5-9 mild; 10-14 moderate; 15-21 severe): 7 Source: Developed by Drs. Donn Mckeon, Rebecca Villalta, Meek Ricardo and colleagues, with an educational darrel from [employer]. ALIZA-7 Assessment Billing ALIZA-7 Assessment Tool: ALIZA-7 Assessment 34230 Review of Systems Const All systems reviewed & are unremarkable except as noted in HPI and below Card Denies chest pain at rest, Denies chest pain with activity, Denies edema, Denies irregular heart rhythm, Denies claudication, Denies dyspnea, Denies dyspnea on exertion, Denies orthopnea, Denies paroxysmal nocturnal dyspnea and Denies slow heart rate Resp Denies cough, Denies dyspnea and Denies dyspnea on exertion Physical exam (Primary Care) Vital Signs: Last Vital Signs BP 130/82 07/04/24 08:33 BMI result Body Mass Index 36.0 BMI Assessment/Plan discussion: High BMI High, discussed plan: lifestyle, weight reduction, dietary and physical activity Tobacco/Smoking Status: Tobacco use Status Tobacco use date assessed 07/04/24 07/04/24 08:39 Patient Tobacco Use Status Never used Tobacco 07/04/24 08:39 e-Cigarette/Vaping Use Never Used 07/04/24 08:39 PHQ-9: PHQ-9 Score PHQ-9: Total score 9 07/04/24 08:53 Depression Screening Interpretation: Positive Depression Screening Follow-up: Existing condition and Follow-up Visit Requested Thrive Assessment: Date of Thrive Assessment Date Thrive assessed 07/04/24 07/04/24 08:39 Currently or been in a relationship where the following occur: No concerns reported HENMT Head: Yes normal to inspection, Yes normocephalic and Yes atraumatic Ears: external ears normal Eyes General: appearance normal, both eyes and all related structures Eyelids: Yes eyelids normal Conjunctivae: conjunctivae normal Neck Neck: Yes normal visual inspection and Yes supple Resp Effort & Inspection: normal respiratory effort Auscultation: clear to auscultation bilaterally Cardio Jugular venous distension: no JVD Rate: regular rate Rhythm: regular rhythm Heart sounds: S1 normal heart sound present and S2 normal heart sound present GI Inspection: Yes normal to inspection Palpation (GI): Soft to palpation and nontender Auscultation: normal bowel sounds Skin General skin exam: no rashes or lesions noted Neuro General: no focal motor deficits Extrem General: Yes full ROM Psych Appearance: grossly normal Immunizations Boostrix Tdap 2.5 Lf unit-8 mcg-5 Lf/0.5 mL intramuscular syringe Performing Provider: Sharmin Gutierrez MD [facility] Administered by: MIRTHA Powell on 07/04/24 08:58 Dose Route Admin Location Dispensed Lot Number Expiration Date [facility] Ceramics Engineer 0.5 mL IM Left Deltoid 0.5 mL [id number] 09/13/26 01348-855-18 [employer] VIS Given Date VIS Provided VIS Publication Date 07/04/24 Single Vaccine 24 Eligibility Eligibility Date Funding Source Not [facility] Eligible 07/04/24 Private Coding Level of Care Code Est Pt Level 3 (49045) Est Pt Prev Care 40-64y(46606) Diagnoses Physical exam Z00.00 Mild recurrent major depression F33.0 Left foot pain M79.672 Additional Codes ALIZA-7 Assessment Billing - ALIZA-7 Assessment Tool: ALIZA-7 Assessment 22500 ([id number]) PHQ-9 - 02287 - PHQ-9 Billing: Yes ([id number]) Time Spent (min) 33 Assessment & Plan Assessment & Plan (1) Physical exam: Code(s): Z00.00 - Encounter for general adult medical examination without abnormal findings Category: Medical (2) Mild recurrent major depression: Code(s): F33.0 - Major depressive disorder, recurrent, mild Category: Medical (3) Left foot pain: Code(s): M79.672 - Pain in left foot Category: Medical Plan The visit focused on addressing several chronic conditions, including asthma, managed with Symbicort; depression for which a switch from Fluoxetine to Bupropion was considered; and hypothyroidism managed with Levothyroxine. A Tdap booster will be administered today. Preventative measures include maintaining up-to-date screenings, such as an annual mammogram and biennial colonoscopy, the latter scheduled for the next year. Continued management of GERD with Omeprazole is indicated. The patient was advised on the importance of diet and exercise for weight management. Regular follow-up and lab monitoring for thyroid levels are planned. Patient was informed and verbally consented to the use of an ambient scribe for clinic note documentation during this visit. During the visit, I discussed her ongoing management of asthma with Symbicort, ensuring close follow-up with the regulatory affairs specialist. Guidance was provided on a potential transition from Fluoxetine to Bupropion for depression management amid weight considerations. Risks and benefits of Bupropion and its weight-related co-benefits were explained. We reviewed her substantial family history of breast and thyroid cancer, emphasizing the continuation of regular screenings. Management of GERD with Omeprazole was discussed with no current changes to therapy. For weight management, I counseled on maintaining dietary discipline and regular physical activity as safer long-term strategies versus pharmacologic aid. The patient agreed to have the Tdap vaccine today, acknowledging over the ten-year johny since the last administration. Follow-up discussions included arranging for pertinent screenings. Orders: Orders TDaP Immunization Today Z23 - Encounter for immunization Vitamin D 25-OH Total Today E55.9 - Vitamin D deficiency, unspecified Thyroid Stimulating Hormone Today E03.9 - Hypothyroidism, unspecified Comprehensive Met. Panel Today Z00.00 - Encounter for general adult medical examination without abnormal findings Lipid Panel Today E78.5 - Hyperlipidemia, unspecified, Z00.00 - Encounter for general adult medical examination without abnormal findings Free T4 (Free Thyroxine) Today E03.9 - Hypothyroidism, unspecified Thyroid Peroxidase Antibodies Today E03.9 - Hypothyroidism, unspecified Thyroglobulin Antibodies Today E03.9 - Hypothyroidism, unspecified Referrals Podiatry Referral M79.672 - Pain in left foot Patient Instructions: - Receive your overdue Tdap vaccine today. - Continue using Symbicort as directed by your lung doctor. - Maintain your prescription for Levothyroxine and check your thyroid levels as planned. - Consider switching from Fluoxetine to Bupropion after our discussion. - Keep using Omeprazole for your heartburn unless symptoms change. - Keep your mammogram and colonoscopy up-to-date according to your screening schedule. - Follow the diet and exercise routine we talked about for healthy weight control. - Come back for expected routine follow-ups.
[2024-07-04 08:33] VITALS: BP 130/82; BMI 36.0
--- OUTSIDE RECORDS SUMMARY | 2024-07-04 08:40 | XMS_ITS | Data Portability ---
Author Organization [facility], [address] Address [address] [place] [address] Assessment No assessment recorded. Plan of Treatment Reminders Order Date Submit Date Provider Last Modified By Organization Details Last Modified Time Details Appointments None recorded. Lab urinalysis , dipstick 2022 023 [email or web address] [facility], [address] [place] [address], [id number], 3 16:35:45 culture, urine 2022 023 [facility], [address] [place] [address], [place], [address], 3 06:08:04 Referral None recorded. Procedures None recorded. Surgeries None recorded. Imaging None recorded. Medication Orders Macrobid 100 mg capsule 2022 023 [id number], [address] [place], [place], [id number], 3 16:45:02 Patient TargetsNo targets recorded. Patient Instructions Encounter Date Encounter Id Patient Instructions Last Modified By Organization Details Last Modified Time 09/29/2022 [id number] We recommend you get a repeat urinalysis [...] culture, routine FINAL REPORT Not Available [facility] ([facility]) [address] [facility], [place], [address], 10/01/2022 06:08:04 09/30/1910/01/2022 URINE CULTU RECARMELINA result 1 NO GROWTH Not Available [facility] ([facility]) [address] [facility], [place], [address], 10/01/2022 06:08:04 09/30/1909/29/2022 urina lysis , dipst ick Unknown Analyte Normal = light yellow Not Available [facility] [address], [address], 09/29/2022 15:56:18 09/30/19 23 09/29/2022 urina lysis , dipst ick Unknown Analyte Yellow Not Available [address], [address], 09/29/2022 15:56:18 09/30/19 23 09/29/2022 urina lysis , dipst ick Unknown Analyte Normal = clear Not Available [facility] [address], [address], 09/29/2022 15:56:18 09/30/19 23 09/29/2022 urina lysis , dipst ick Unknown Analyte Clear Not Available [address] [place] [address] [place], [address], 09/29/2022 15:56:18 09/30/19 23 09/29/2022 urina lysis , dipst ick Unknown Analyte Normal = negati ve Not Available 2099eveline chao [address], [place], [address], 09/29/2022 15:56:18 09/30/19 23 09/29/2022 urina lysis , dipst ick Unknown Analyte Negati ve Not Available [facility] [address], [place], [address], 09/29/2022 15:56:18 09/30/19 23 09/29/2022 urina lysis , dipst ick Unknown Analyte Normal = Negati ve Not Available [address], [place], [address], 09/29/2022 15:56:18 09/30/19 23 09/29/2022 urina lysis , dipst ick Unknown Analyte Small Not Available [address], [place], [address], 09/29/2022 15:56:18 09/30/19 23 09/29/2022 urina lysis , dipst ick Unknown Analyte Normal = Negati ve Not Available [facility] [address], [place], [address], 09/29/2022 15:56:18 09/30/19 23 09/29/2022 urina lysis , dipst ick Unknown Analyte Negati ve Not Available [facility] [address], [place], [address], 09/29/2022 15:56:18 09/30/19 23 09/29/2022 urina lysis , dipst ick Unknown Analyte Normal = 1.010, 1.015, 1.020 Not Available eveline chao [address], [place], [address], 09/29/2022 15:56:18 09/30/19 23 09/29/2022 urina lysis , dipst ick Unknown Analyte 1.030 Not Available [facility] [address], [place], [address], 09/29/2022 15:56:18 09/30/19 23 09/29/2022 urina lysis , dipst ick Unknown Analyte Normal = Negati ve Not Available eveline chao [address], [place], [address], 09/29/2022 15:56:18 09/30/19 23 09/29/2022 urina lysis , dipst ick Unknown Analyte Negati ve Not Available eveline chao [address], [place], [address], 09/29/2022 15:56:18 09/30/19 23 09/29/2022 urina lysis , dipst ick Unknown Analyte Normal = 6.5, 7.0, 7.5, 8.0 Not Available eveline chao [address], [place], [address], 09/29/2022 15:56:18 09/30/19 23 09/29/2022 urina lysis , dipst ick Unknown Analyte 5.0 Not Available [address], [place], [address], 09/29/2022 15:56:18 09/30/19 23 09/29/2022 urina lysis , dipst ick Unknown Analyte Normal = Negati ve Not Available [facility] [address], [place], [address], 09/29/2022 15:56:18 09/30/19 23 09/29/2022 urina lysis , dipst ick Unknown Analyte Trace Not Available [facility], [place], [address], 09/29/2022 15:56:18 09/30/19 23 09/29/2022 urina lysis , dipst ick Unknown Analyte Normal = 0.2, 1.0 Not Available eveline chao [address], [place], [address], 09/29/2022 15:56:18 09/30/19 23 09/29/2022 urina lysis , dipst ick Unknown Analyte 0.2 E.U./d L Not Available eveline chao [address], [place], [address], 09/29/2022 15:56:18 09/30/19 23 09/29/2022 urina lysis , dipst ick Unknown Analyte Normal = Negati ve Not Available eveline chao [address], [place], [address], 09/29/2022 15:56:18 09/30/19 23 09/29/2022 urina lysis , dipst ick Unknown Analyte Normal = Negati ve Not Available eveline chao [address], [place], [address], 09/29/2022 15:56:18 09/30/19 23 09/29/2022 urina lysis , dipst ick Unknown Analyte Negati ve Not Available eveline chao [address], [place], [address], 09/29/2022 15:56:18 09/30/19 23 09/29/2022 urina lysis , dipst ick Unknown Analyte Negati ve Not Available [facility], [address], 09/29/2022 15:56:18 Result Notes None recorded. Problems Name Problem SNOMED Code Status Onset Date Resolution Date Notes Provider Name and Address Organization Details Recorded Time Asthma 187016224 Active 2022 Aleah [place] null, [place] - [facility] 15:55:04 Hypothyroidism 86447308 Active 2022 Aleah Julián null, PA - [facility] 15:55:13 Neuropathy 044659058 Active 2022 Aleah [place] null, PA - [facility] 15:55:18 Problem Notes None recorded. Procedures Surgical History Date Name Laterality Status Provider Name and Address Organization Details Recorded Time cholecystectomy completed Aleah [place] P A - [facility] 09/29/2022 15:55:45 hernia repair completed Aleah [place] PA - [facility] 09/29/2022 15:55:51 lumbar hernioplasty completed Aleah Bee be PA - [facility] 09/29/2022 15:56:03 hysterectomy completed Aleah Julián PA - [facility] 09/29/2022 15:56:10 Imaging Results None recorded. Procedure Notes None recorded. Medical Equipment None Reported. Allergies Allergen ID Allergen Name Allergen Category Reaction Reaction Severity Criticality Documentation Date Start Date Code Code System Note Provider Name and Address Organization Details Recorded Time 807407 Imitrex medicatio n Not available Not available Not available 09/29/2022 39656 3 RxNorm Aleah [place] null, [place] - [facility] 15:53:19 840616 morphine medicatio n Not available Not available [...] Address Organization Details Last Updated DateTime 3 960606. 84 g 35.6 kg/m2 171.45 cm 6 [...] SNOMED-CT Code Diagnosis ICD10 Code Diagnosis Note [id number] [place] Ivy [place] 2[address]_Chi [facility] [address] [place] [address] 09/29/2022 15:31:22 09/29/2022 16:41:24 Acute urinary tract infection 624833411 N39.0 Health Concerns Section Related Observation LastModified by Organization Detai ls LastModified Time None Recorded Concern Status LastModified by Organization Details LastModified Time None Recorded Advance Directives Directive None Recorded Payers Encounter Date Sequence Insurance Name Policy Number Policy Morgan Covered Member ID Morgan Member ID Guarantor Name 09/29/2022 1 [facility] - HEALTH NET PLAN (MEDICAID HMO) PHI Saldaña [id number] Nena Saldaña Notes Date Note Type Note [...] Ivy NP [address] [place], [address], [place] - [facility] 09/29/2022 16:40:41 OBGyn Episode No OBEpisode recorded.
--- OUTSIDE RECORDS SUMMARY | 2024-07-04 08:40 | XMS_ITS | Clinical Summary ---
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 Repeat in 1 year. under propofol ESOPHAGOGASTRODUODENOSCOPY 08/07/14 [facility] PROCEDURE: TN ESOPHAGOGASTRODUODENOSCOPY TRANSORAL DIAGNOSTIC; COMMENT: normal, with nl esophageal biopsies COLONOSCOPY W/ BIOPSIES 09/22/15 PROCEDURE: TN COLONOSCOPY W/BIOPSY SINGLE/MULTIPLE; COMMENT: hemorrhoids; normal colonic [...] Vaccine (1 - 2023-2 5 season) 2023 DTaP,Tdap,and Td Vaccines (2 - Td or Tdap) 05/06/2024 05/06/2014 Influenza Vaccine (Season Ended) 2024 HIB Vaccines Aged Out No longer eligi [...] age to complete this topic Meningococcal B Vaccine Aged Out No l onger eligible based on patient's age to complete [...] Recently Relevant to Health Maintenance Care Teams Director Human Services Relationship Specialty Start Date End Date Laci Domínguez MD PCP - General Internal Medicine 11/01/13
== END 2024-07-04 09:00 | disposition home or self-care (01) ==
LOC: HO.HMCH 08:26
PROVIDERS: PCP Internal Medicine; Visit Provider Internal Medicine
DX: Z00.00 Encounter for general adult medical examination without abnormal findings (principal); M79.672 Pain in left foot; F33.0 Major depressive disorder, recurrent, mild; Z23 Encounter for immunization

== ENCOUNTER → 2024-07-04 08:25 | Outpatient (BNVA) | payer OTHER, SELFPAY | PROVIDERS: PCP Internal Medicine; Visit Provider Internal Medicine | DX: Z00.00 Encounter for general adult medical examination without abnormal findings (principal); J45.909 Unspecified asthma, uncomplicated; E03.9 Hypothyroidism, unspecified; Z79.899 Other long term (current) drug therapy; K21.9 Gastro-esophageal reflux disease without esophagitis; Z23 Encounter for immunization; F33.0 Major depressive disorder, recurrent, mild; M79.672 Pain in left foot | CPT/HCPCS: 90471; 90715; 96127; 99212; 99396 ==

== ENCOUNTER 2024-07-27 09:31 | Outpatient (REF) | payer OTHER, SELFPAY | END 2024-07-27 09:32 | disposition home or self-care (01) | LOC: HO.MAMMO 09:31 | PROVIDERS: PCP Internal Medicine; Visit Provider Internal Medicine | DX: Z12.31 Encounter for screening mammogram for malignant neoplasm of breast (principal) | CPT/HCPCS: 77063; 77067 ==

== ENCOUNTER → 2024-07-27 09:45 | Outpatient (BNV) | payer OTHER, SELFPAY | PROVIDERS: PCP Internal Medicine; Visit Provider Internal Medicine | DX: Z12.31 Encounter for screening mammogram for malignant neoplasm of breast (principal) | CPT/HCPCS: 77063; 77067 ==

== ENCOUNTER 2024-11-18 10:33 | Outpatient (AMB) | payer OTHER, SELFPAY ==
--- NOTE | 2024-11-18 10:46 | A.OFFVIS_ITS ---
Vital Signs 11/18/24 10:47 Height 5 ft 7 in Weight 221 lb 9.033 oz BMI 34.7 BP 104/78 Blood Pressure Location Lt brachial Position Sitting Pulse 66 Pulse Source Pulse Oximeter Pulse Oximetry (%) 99 Oxygen Delivery Method Room Air Intake Visit Reasons: asthma Intake Note: pt is here for follow up and states she is feeling okay today but she was having issues a few weeks ago, and had ER at [facility] for shortness of breath and was admitted for 2 days. [employer] Insurance Claim Examiner Required: No Allergies sumatriptan (From IMITRE[facility]) Allergy (Intermediate, Verified 11/18/24 11:03) rash, shortness of breath morphine Adverse Reaction (Severe, Verified 11/18/24 11:03) Migraine Medication List - Last Reconciled 11/18/24 by Gary Schmidt MD budesonide-formoterol 160-4.5 mcg/actuation (Symbicort) 2 puffs inhalation BID cholestyramine (with sugar) 4 gram 4 grams PO BID 30 days fluoxetine 10 mg PO DAILY 90 days fluticasone propionate 50 mcg/actuation 2 sprays intranasal DAILY gabapentin 600 mg PO TID 90 days levothyroxine 88 mcg PO DAILY 90 days loperamide (Imodium A-D) 2 mg PO Q6H PRN montelukast 10 mg PO DAILY omeprazole 40 mg PO DAILY Ventolin HFA 90 mcg/actuation (albuterol sulfate) 2 puffs inhalation Q6H PRN NS Do you need a note to return to daycare/school/sports/work: No HPI HPI asthma: Details: This 49 years old female moderately obese, has longstanding history of allergic rhinitis and bronchial asthma. Normally well controlled with. Her current medical regimen She states that she was hospitalized at [facility] about 2 months ago when diagnosed to have pericarditis and it resolved. Then she was admitted about a month ago with mild acute exacerbation of bronchial asthma. Which has also resolved back to baseline. She uses Symbicort inhaler twice a day regularly and Ventolin only as needed. Nasal congestion is also under control. She denies symptoms of sleep apnea. She is nonsmoker. [facility] Medical History Moderate recurrent major depression Epistaxis JAMAR (obstructive sleep apnea) Somnolence, daytime Obesity (BMI 35.0-39.9 without comorbidity) Bronchitis Post covid-19 condition, unspecified Family history of breast cancer Hypovitaminosis D Insomnia Left foot pain Left wrist pain Bloody stools Family history of colon cancer Colon polyps Physical exam Surgical History History of umbilical hernia repair (~12/07/21) History of cholecystectomy History of carpal tunnel surgery History of colonoscopy History of bilateral breast reduction surgery History of back surgery History of hysterectomy Family History Father Hypothyroid Thyroid cancer Asthma Migraine Mother Breast cancer, Onset Age: 21 Social History Housing: House Alcohol intake: current Alcohol intake frequency: holidays/special occasions only Alcohol type: wine Patient Tobacco Use Status: Never used Tobacco e-Cigarette/Vaping Use: Never Used Second Hand Smoke Exposure: No service: No Current occupational status: unemployed Cognitive needs: No Hearing needs: No Vision needs: No Review of Systems Const All systems reviewed & are unremarkable except as noted in HPI and below Eyes Reports no additional complaints, Denies change in vision and Reports other visual disturbances ENT Reports epistaxis (Mild intermittent from the left nostril, controlled with local pressure.) Card Reports chest pain at rest, Reports chest pain with activity, Denies edema, D enies irregular heart rhythm, Denies claudication, Reports dyspnea, Reports dyspnea on exertion, Denies orthopnea, Denies paroxysmal nocturnal dyspnea and Denies slow heart rate Resp Reports cough, Reports dyspnea, Reports dyspnea on exertion and Reports wheezing (Patient still reports intermittent wheezing) GI Reports no additional complaints and Reports nausea Reports no additional complaints Musc Reports no additional complaints and Reports back pain (Mild) Skin/Breast Reports system reviewed and no additional complaints, except as documented Neuro Reports no additional complaints Psych Reports no additional complaints Aller/Immun Reports wheezing (Patient still reports intermittent wheezing) Physical Exam Vital Signs: Last Vital Signs Pulse 66 11/18/24 10:47 BP 104/78 11/18/24 10:47 Pulse Ox 99 11/18/24 10:47 Oxygen Delivery Method Room Air 11/18/24 10:47 BMI result Body Mass Index 34.7 Const General: healthy appearing, comfortable, no acute distress, alert and awake Orientation/consciousness: patient oriented x3 HEENT Head: Yes normal to inspection General nose exam: No nasal polyps present, No nasal discharge present, no epistaxis (There is bulge to the left of the anterior septum, no active bl eeding) and Other nasal findings present (DNS to left, mild nasal congestion) Face and sinus: Yes sinuses nontender Mouth: oropharynx normal Throat: Yes posterior oropharynx normal Eyes General: appearance normal, both eyes and all related structures Neck Neck: Yes normal visual inspection, Yes no lymphadenopathy, Yes trachea midline and Yes no JVD Thyroid: Thyroid normal Chest Chest palpation & inspection: normal inspection of the chest, normal palpation of entire chest wall and no tenderness Resp Other: Percussion note resonant, breath sounds are somewhat diminished. No crepitations or wheezes were heard. Cardio Palpation: normal PMI Rate: regular rate Rhythm: regular rhythm Heart sounds: no gallops and no murmurs Peripheral pulses: Peripheral pulses 2+ throughout GI Palpation (GI): Soft to palpation, nontender, No hepatosplenomegaly present and no masses Auscultation: normal bowel sounds Back/Spine/Pelvis Thoracic/Lumbar Spine: thoracic and lumbar spine normal to inspection Skin General skin exam: no rashes or lesions noted Neuro General: patient oriented x3 and no focal motor deficits Cranial nerves: Yes CN's II-XII intact bilaterally Extrem General: Yes normal to inspection, Yes no clubbing, cyanosis or edema and Yes no calf tenderness Psych Appearance: grossly normal and well kempt Speech and movement: Normal speech and movement present Assessment & Plan Assessment & Plan (1) Allergic asthma: Comment: This patient has chronic allergic bronchial asthma, Her allergens are, usual environmental agents, including dogs that she has at home. The bronchial asthma seems to be fairly well controlled at this time. Code(s): J45.909 - Unspecified asthma, uncomplicated Category: Medical Plan: Continue using Symbicort 160-4.52 puffs b.i.d. And use Ventolin HFA 2 puffs Q 4-6 hours p.r.n. for acute wheezing or shortness of breath. (2) Obesity (BMI 35.0-39.9 without comorbidity): Comment: Patient is grossly obese, her weight fluctuates by a few lb but overall has not been able to lose weight. Current BMI= 34.7 Code(s): E66.9 - Obesity, unspecified Category: Medical Plan: Discussed about need to cut down the calories intake and also discussed about walking up to 2 miles every day (3) Allergic rhinitis: Comment: She has history of chronic allergic rhinitis which flares up at the change of weather. Usually has remained well controlled with ongoing medical regimen. She has occasional bleeding from the left nostril probably due to increased nasal congestion. Code(s): J30.9 - Allergic rhinitis, unspecified Category: Medical Plan: Continue montelukast 10 mg daily Fluticasone-52 spray in each nostril daily May use loratadine 10 mg once a day p.r.n. if there is an acute nasal congestion (4) JAMAR (obstructive sleep apnea): Comment: She does have body features suggestive of sleep apnea. But home sleep study was negative. Code(s): G47.33 - Obstructive sleep apnea (adult) (pediatric) Category: Medical Plan: Still advised to lose some weight. And follow sleep hygiene measures. Coding Level of Care Code Est Pt Level 3 (73797) Diagnoses Allergic asthma J45.909 Obesity (BMI 35.0-39.9 without comorbidity) E66.9 Allergic rhinitis J30.9 JAMAR (obstructive sleep apnea) G47.33
[2024-11-18 10:47] VITALS: BP 104/78; PULSE 66; O2SAT 99; BMI 34.7
--- OUTSIDE RECORDS SUMMARY | 2024-11-18 13:35 | XMS_ITS | Clinical Summary ---
Author Organization [facility] Address [address] [place] [address] Phone Care Team Providers Care Word Processing Specialist Name Role Phone Sharmin Gutierrez MD Primary Care Provider [phone] Allergies Active Allergy Reactions Criticality Noted Date Comments Latex Rash Low 10/11/2022 Morphine Hives 07/15/2024 Sumatriptan Hives,Palpitations 10/20/2015 itchy Medications albuterol HFA (PROAIR HFA ; PROVENTIL HFA ; VENTOLIN HFA) 90 mcg/actuation inhaler 2 puffs every 4 (four) hours if needed for wheezing (Cough). 6 Active cetirizine (ZyrTEC) 10 mg tablet [...] 1 (one) time each day. 7 Active levothyroxine (SYNTHROID, LEVOTHROID) 88 mcg tablet Take 1 tablet (88 mcg total) by mouth 1 (one) time each day. Active montelukast (SINGULAIR) 10 mg tablet Take 1 tablet (10 mg total) by mouth at bedtime. Active cephalexin (KEFLEX) 500 mg capsule Take 1 capsule (500 mg total) by mouth 4 (four) times a day for 10 days. 20 capsule 5 11/13/19 25 ketorolac (TORADOL) 10 mg tablet Take 1 tablet (10 mg total) by mouth every 6 (six) hours if needed for moderate pain for up to 5 days. 20 tablet 5 11/08/19 25 acetaminophen (TYLENOL) 500 mg tablet Take 2 tablets (1,000 mg total) by mouth every 6 (six) hours if needed for mild pain for up to 10 days. 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 Emergency [address] [place] [address] Roger Wing MD Acute right-sided thoracic back pain (Primary Dx); Cystitis Discharge Disposition: Home or Self Care from Last 3 Months Immunizations Name Administration Dates Next Due Tdap Tetanus diptheria acell ular pertussis (Boostrix; Adacel) 7yo and older 05/06/2014 Surgical History Surgery Date Site/Laterality Comments HYSTERECTOMY PROCEDURE: HISTORICAL HYSTERECTOMY; COMMENT: due to endometriosis, has ovaries BREAST BIOPSY PROCEDURE: BX BREAST; PERC NEEDLE CORE W/IMAG GUID; COMMENT: RT BREAST SURGERY PROCEDURE: SD UNLISTED PROCEDURE BREAST; COMMENT: RT SIDE MASS REMOVED AT 20 NONCANCEROUS BREAST REDUCTION PROCEDURE: SD BREAST REDUCTION COLONOSCOPY 12/18/09 [facility] PROCEDURE: SD COLONOSCOPY STOMA W/RMVL GORDON POLYP/OTH LES SNARE; COMMENT: 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 Repeat in 1 year. under propofol ESOPHAGOGASTRODUODENOSCOPY 08/07/14 [facility] PROCEDURE: SD ESOPHAGOGASTRODUODENOSCOPY TRANSORAL DIAGNOSTIC; COMMENT: normal, with nl esophageal biopsies COLONOSCOPY W/ BIOPSIES 09/22/15 PROCEDURE: SD COLONOSCOPY W/BIOPSY SINGLE/MULTIPLE; COMMENT: hemorrhoids; normal colonic [...] drink = 0.6 oz pur e alcohol) Housing Instability Answer Date Recorde d Are you worried that in the next 2 months you may not have stable housing? No 07/15/2024 Food Access & Nutrition Answer Date Rec orded Do you have access to a vari ety of food including fruits and vegetables? Yes 07/15/2024 Access to Healthcare Answer Date Record ed Within the last 3 months, ho w many times did you visit the emergency department for your medical care? 0 07/15/2024 Health Literacy Answer Date Recorded How often do you need to hav e someone help you when you read instructions, pamphlets, or other written material from your doctor or pharmacy? Never 07/15/2024 Caregiver: How often do you need to have someone help you when you read instructions, pamphlets, or other written material from your doctor or pharmacy? Not on file 07/15/2024 Financial Risk Answer Date Recorded How hard is it for you to pa y for the very basics like food, housing, medical care, and air conditioning / heating? Somewhat hard 07/15/2024 Transportation Answer Date Recorded Has the lack of transportati on kept you from meetings, work, or from getting things needed for daily living? No Has the lack of transportati on kept you from medical appointments or from getting medications? No 07/15/2024 Social Isolation Answer Date Recorded How often do you feel lonely or isolated from th ose around you? Never 07/15/2024 Food Risk Answer Date Recorded Within the past 12 months we worried whether our food would run out before we got money to buy more. Never true 07/15/2024 Within the past 12 months th e food we bought just didn't last and we didn't have money to get more. Never true 07/15/2024 Dependent Care Answer Date Recorded Do you need help finding or paying for care for your loved ones. For example, children's nursery assistant or elderly care for an older adult? No 07/15/2024 Education Answer Date Recorded Do you think completing more education or training, like finishing a GED, going to college, or learning a trade, would be helpful for you? N/A 07/15/2024 Employment and Income Answer Date Recor ded During the last four weeks, have you been actively looking for work? No 07/15/2024 Living Situation Answer Date Recorded What is your living situation? 0 07/15/2024 Interpersonal Safety Answer Date Record ed Physical Abuse 07/15/2024 Verbal Abuse 07/15/2024 Comments No Sex and Gender Information Value Date Recorded Sex Assigned at Not on file Legal Sex Female 12:16 PM EST Gender Identity Not on file Sexual Orientation Not on file Obstetrics History Last Filed Vital Signs Vital Sign Reading Time Taken Comments Blood Pressure 125/74 11/02/2024 4:34 PM EDT Pulse 73 11/02/2024 4:34 PM EDT Temperature 36.6 C (97.8 F) 11/02/2024 4:34 PM EDT Respiratory Rate 17 11/02/2024 4:34 PM EDT Oxygen Saturation 98% 11/02/2024 4:34 PM EDT Inhaled Oxygen Concentration - - Weight 100 kg (221 lb) 11/02/2024 12:37 PM EDT Height 170.2 cm (5' 7 ) 11/02/2024 12:37 PM EDT Body Mass Index 34.61 11/02/2024 12:37 PM EDT Plan of Treatment Health Maintenance Due Date Last Done Comments Breast Cancer Screening 1974 Hepatitis B Vaccines (1 of 3 - 19+ 3-dose series) 1993 Pneumococcal Vaccine: 50+ Years (1 of 2 - PCV) 1993 Cholesterol Screening (Lipid Panel) 02/01/2022 11/08/2016 Colorectal Cancer Screening: Colonoscopy 02/01/2022 09/22/2015 HIV Screening 02/01/2022 Hepatitis C Screening 02/01/2022 Depression Screening 03/06/2024 Zoster Vaccines (1 of 2) 2024 COVID-19 Vaccine (1 - 2023-2 5 season) 2024 Influenza Vaccine (#1) 2024 3, 01/17/2011 Social Influencers of Health Screening 07/15/2025 07/15/2024 DTaP,Tdap,and Td Vaccines (3 - Td or Tdap) 07/04/2034 07/04/2024, 05/06/2014 HIB Vaccines Aged Out No longer [...] to complete this topic RSV Immunization Patients Under 20 months Aged Out No longer eligible b ased on patient's age to complete this topic Varicella Vaccines Aged Out No longer eligible based on patient's age to complete this topic Procedures Procedure Name Priority Date/Time Associated Diagnosis Comments URINALYSIS WITH REFLEX MICROSCOPIC STAT 11/02/2024 4:31 PM EDT URINALYSIS WITH REFLEX MICROSCOPIC STAT 11/02/2024 4:[address] ABDOMEN PELVIS W CONTRAST STAT 11/02/2024 4:18 PM EDT CBC WITH AUTO DIFFERENTIAL STAT 11/02/2024 3:15 PM EDT LIPASE STAT 11/02/2024 3:15 PM EDT COMPREHENSIVE METABOLIC PANEL STAT 11/02/2024 3:15 PM EDT CBC AND DIFFERENTIAL STAT 11/02/2024 3:15 PM EDT LIPID PANEL Routine 11/08/2016 [facility] COLONOSCOPY Routine 09/22/2015 from Last 3 Months or Most Recently Relevant to Health Maintenance Results * (ABNORMAL) Urinalysis with reflex microscopic (11/02/2024 4:31 PM EDT) Specific [place] Urine 1.020 1.003 - 1.030 LAB URINALYSIS - AUTOMATED METHOD 11/02/2024 5:05 PM [facility] pH, Urine 6.5 5.0 - 8.0 pH LAB URINALYSIS - AUTOMATED METHOD 11/02/2024 5:05 PM [facility] Leukocytes, Urine Moderate(A) Negative LAB URINALYSIS - AUTOMATED METHOD 11/02/2024 5:05 PM [facility] Nitrite, Urine Negative Negative LAB URINALYSIS - AUTOMATED METHOD 11/02/2024 5:05 PM [facility] Protein, Urine Negative <=Trace mg/dL LAB URINALYSIS - AUTOMATED METHOD 11/02/2024 5:05 PM [facility] Glucose, Urine Negative Negative mg/dL LAB URINALYSIS - AUTOMATED METHOD 11/02/2024 5:05 PM [facility] Ketones, Urine Negative Negative mg/dL LAB URINALYSIS - AUTOMATED METHOD 11/02/2024 5:05 PM [facility] Urobilinogen , Urine 0.2 0.2 - 1.0 mg/dL LAB URINALYSIS - AUTOMATED METHOD 11/02/2024 5:05 PM [facility] Bilirubin, Urine Negative Negative LAB URINALYSIS - AUTOMATED METHOD 11/02/2024 5:05 PM [facility] Blood, Urine Negative Negative LAB URINALYSIS - AUTOMATED METHOD 11/02/2024 5:05 PM [facility] RBC, Urine 2.5 0 - 4 /HPF LAB URINALYSIS - AUTOMATED METHOD 11/02/2024 5:05 PM [facility] WBC, Urine 48.5(H) 0 - 4 /HPF LAB URINALYSIS - AUTOMATED METHOD 11/02/2024 5:05 PM EDT [facility] Squamous Epithelial, Urine 38 0 - 60 /LPF LAB URINALYSIS - AUTOMATED METHOD 11/02/2024 5:05 PM EDT [facility] Bacteria, Urine Negative Negative /HPF LAB URINALYSIS - AUTOMATED METHOD 11/02/2024 5:05 PM EDT [facility] Hyaline Casts, Urine 0.4 0 - 3 /LPF LAB URINALYSIS - AUTOMATED METHOD 11/02/2024 5:05 PM EDT [facility] Urine Urine specimen obtained by clean catch procedure / Unknown Non-blood Collection / Unknown 11/02/2024 4:31 PM EDT 11/02/2024 4:45 PM EDT us Roger Wing MD LAB URINE ORDERABLES Final Res ult [facility] [address] [place] [address], [place] [phone] * CT Abdomen Pelvis w Contrast (11/02/2024 4:18 PM EDT) Anatomical Region Laterality Modality Body Computed Tomogra phy 11/02/2024 4:51 PM EDT Impressions 11/02/2024 4:51 PM EDT Impression: 1. Perivesical stranding suggest cystitis, consider correlation with urinalysis. Otherwise, no definable urolithiasis or hydroureteronephrosis. This document has been electronically signed by: Gaurav Askew MD on 11/02/2024 16:51:39 Narrative 11/02/2024 4:51 PM EDT INDICATION: Flank pain, kidney stone suspected Exam: Contrast-enhanced CT abdomen and pelvis with multiplanar reformats. Comparison: 02/24/2023. Findings: CT abdomen: Lung bases reveal a similar small pericardial effusion. Liver is free of focal lesions and ductal dilatation. Gallbladder is absent. Spleen appears unremarkable. Pancreas and adrenal glands appear unremarkable. Kidneys appear unremarkable. No definable urolithiasis or hydroureteronephrosis. No CT evidence of pyelonephritis. No free intraperitoneal fluid or retroperitoneal masses or adenopathy. Abdominal aorta is normal caliber. Bowel loops reveal no abnormal wall thickening or distention. The appendix is unremarkable. No significant diverticular disease. CT pelvis: Urinary bladder reveals perivesical stranding, suggesting cystitis. Uterus is surgically absent. No pelvic masses, fluid or adenopathy. Osseous structures reveal no destructive osseous lesions. There is stable posterior fusion hardware at L5-S1, without evidence of hardware failure. Procedure Note Gaurav Askew MD - 11/02/2024 INDICATION: Flank pain, kidney stone suspected Exam: Contrast-enhanced CT abdomen and pelvis with multiplanarreformats. Comparison: 02/24/2023. Findings: CT abdomen: Lung bases reveal a similar small pericardial effusion.Liver is free of focal lesions and ductal dilatation. Gallbladder is absent. Spleen appears unremarkable. Pancreas and adrenal glands appear unremarkable. Kidneys appear unremarkable. No definable urolithiasis or hydroureteronephrosis. No CT evidence of pyelonephritis. No free intraperitoneal fluid or retroperitoneal masses or adenopathy. Abdominal aorta is normal caliber. Bowel loops reveal no abnormal wall thickening or distention. Theappendix is unremarkable. No significant diverticular disease. CT pelvis: Urinary bladder reveals perivesical stranding, suggesting cystitis. Uterus is surgically absent. No pelvic masses, fluid or adenopathy. Osseous structures reveal no destructive osseous lesions. There isstable posterior fusion hardware at L5-S1, without evidence of hardwarefailure. IMPRESSION: Impression: 1. Perivesical stranding suggest cystitis, consider correlation with urinalysis. Otherwise, no definable urolithiasis orhydroureteronephrosis. This document has been electronically signed by: Gaurav Askew MD on 11/02/2024 16:51:39 Roger Wing MD [facility] [place] Final Result * (ABNORMAL) CBC auto differential (11/02/2024 3:15 PM EDT) WBC 6.7 4.8 - 10.8 K/[facility] LAB HEMETOLOGY METHOD 11/02/2024 3:43 PM EDT [facility] RBC 4.20 3.80 - 4.80 M/mcL LAB HEMETOLOGY METHOD 11/02/2024 3:43 PM EDT [facility] Hemoglobin 13.7 11.5 - 16.0 g/dL LAB HEMETOLOGY METHOD 11/02/2024 3:43 PM EDT [facility] Hematocrit 39.4 35.0 - 47.0 % LAB HEMETOLOGY METHOD [facility]02[facility]24 [facility] MCV 94.0 79.0 - 98.0 FL LAB HEMETOLOGY METHOD 11/02[facility]2024 3:[facility] MCH 32.7(H) 27.0 - 32.0 pcg LAB HEMETOLOGY METHOD 11/02[facility]2024 3[facility] MCHC 34.8 32.0 - 37.0 g/dL LAB HEMETOLOGY METHOD 11/02/2024 3:43 PM [facility] RDW 11.9 11.0 - 15.0 % LAB HEMETOLOGY METHOD 11/02/2024 3:[facility] Platelets 219 130 - 400 K/mcL LAB HEMETOLOGY METHOD 11/02/2024 3:[facility] MPV 10.2 7.0 - 11.0 FL LAB HEMETOLOGY METHOD 11/02/2024 3:[facility] NRBC 0.0 <1.0 % LAB HEMETOLOGY METHOD 11/02/2024 3:[facility] NRBC Absolute 0.00 <0.10 K/mcL LAB HEMETOLOGY METHOD 11/02/2024 3:[facility] Neutrophils Relative 54.1 % LAB HEMETOLOGY METHOD 11/02[facility]2024 3[facility] Lymphocytes Relative 33.5 % LAB HEMETOLOGY METHOD 11/02/2024 3:43 PM EDT [facility] Monocytes Relative 6.0 % LAB HEMETOLOGY METHOD 11/02/2024 3:43 PM EDT [facility] Eosinophils Relative 5.8 % LAB HEMETOLOGY METHOD 11/02/2024 3:43 PM EDT [facility] Basophils Relative 0.3 % LAB HEMETOLOGY METHOD 11/02/2024 3:43 PM EDT [facility] Immature Granulocytes Relative 0.3 % LAB HEMETOLOGY METHOD 11/02/2024 3:43 PM EDT [facility] Neutrophils Absolute 3.61 1.50 - 7.00 K/mcL LAB HEMETOLOGY METHOD 11/02[facility]2024 3[facility] Lymphocytes Absolute 2.24 1.00 - 5.00 K/mcL LAB HEMETOLOGY METHOD 11/02/2024 3:43 PM EDT [facility] Monocytes Absolute 0.40 0.20 - 1.00 K/mcL LAB HEMETOLOGY METHOD 11/02/2024 3:43 PM EDT [facility] Eosinophils Absolute 0.39 0.00 - 0.50 K/mcL LAB HEMETOLOGY METHOD 11/02/2024 3:43 PM [facility] Basophils Absolute 0.02 0.00 - 0.20 K/mcL LAB HEMETOLOGY METHOD 11/02/2024 3:43 PM EDT [facility] Immature Granulocytes Absolute 0.02 0.00 - 0.03 K/mcL LAB HEMETOLOGY METHOD 11/02/2024 3:43 PM [facility] Blood Venous blood specimen / Unknown Venipuncture / Unknown 11/02/2024 3:15 PM EDT 11/02/2024 3:35 PM EDT us Roger Wing MD LAB BLOOD ORDERABLES Final Res ult [facility] [address] [place] [address], [place] [phone] * Lipase (11/02/2024 3:15 PM EDT) [facility] Lipase 40 13 - 75 unit/L LAB CHEMISTRY METHOD 11/02/2024 4:02 PM EDT [facility] Blood Venous blood specimen / Unknown Venipuncture / Unknown 11/02/2024 3:15 PM EDT 11/02/2024 3:35 PM EDT Roger Wing MD LAB BLOOD ORDERABLES Final Res ult Performing Organization Address [facility]/ZIP Co de Phone Number [facility] [address] [place] [address], [place] [phone] * (ABNORMAL) Comprehensive metabolic panel (11/02/2024 3:15 PM EDT) [facility] Sodium 138 133 - 145 mmol/L LAB CHEMISTRY METHOD 11/02/2024 4:02 PM [facility] Potassium 4.6 3.5 - 5.5 mmol/L LAB CHEMISTRY METHOD 11/02/2024 4:02 PM [facility] Comment:Hemolysis present Chloride 106 96 - 110 mmol/L LAB CHEMISTRY METHOD 11/02/2024 4:02 PM [facility] CO2 30 21 - 32 mmol/L LAB CHEMISTRY METHOD 11/02/2024 4:02 PM [facility] Anion Gap 2(L) 3 - 11 LAB CHEMISTRY METHOD 11/02/2024 4:02 PM [facility] Glucose 82 70 - 100 mg/dL LAB CHEMISTRY METHOD 11/02/2024 4:02 PM [facility] BUN 9 5 - 25 mg/dL LAB CHEMISTRY METHOD 11/02/2024 4:02 PM [facility] Creatinine 0.84 0.50 - 1.10 mg/dL LAB CHEMISTRY METHOD 11/02/2024 4:02 PM [facility] eGFR 85 >=60 mL/min/1. 73m2 LAB CHEMISTRY METHOD 11/02/2024 4:02 PM [facility] Comment:Calculation based on the Chronic Kidney Disease Epidemiology Collaboration (CKD-EPI) equation refit without adjustment for race. BUN/Creatinine Ratio 10.7 LAB CHEMISTRY METHOD 11/02/2024 4:02 PM [facility] Calcium 9.3 8.5 - 10.5 mg/dL LAB CHEMISTRY METHOD 11/02/2024 4:02 PM [facility] AST (SGOT) 19 10 - 42 unit/L LAB CHEMISTRY METHOD 11/02/2024 4:02 PM [facility] Comment:Hemolysis present ALT (SGPT) 25 10 - 60 unit/L LAB CHEMISTRY METHOD 11/02/2024 4:02 PM [facility] Alkaline Phosphatase 89 42 - 121 unit/L LAB CHEMISTRY METHOD 11/02/2024 4:02 PM [facility] Total Protein 6.7 6.0 - 8.0 g/dL LAB CHEMISTRY METHOD 11/02/2024 4:02 PM [facility] Albumin 4.0 3.2 - 5.0 g/dL LAB CHEMISTRY METHOD 11/02/2024 4:02 PM [facility] Total Bilirubin 0.4 0.0 - 1.4 mg/dL LAB CHEMISTRY METHOD 11/02/2024 4:02 PM [facility] Blood Venous blood specimen / Unknown Venipuncture / Unknown 11/02/2024 3:15 PM EDT 11/02/2024 3:35 PM EDT us Roger Wing MD LAB BLOOD ORDERABLES Final Res ult [facility] [address] [place] [address], [place] [phone] * (ABNORMAL) Lipid panel (11/08/2016) LDL/HDL Ratio 5(A) 0 - 4 Triglycerides 185(A) 0 - 150 mg/dL Cholesterol 201(A) 0 - 200 mg/dL HDL 43 >=40 mg/dL LDL Cholesterol 121(A) 0 - 100 mg/dL Blood Venous blood specimen / Unknown us Historical Provider MD LAB BLOOD ORDERABLES Ileana l Result * Colonoscopy (09/22/2015) Pathologist [facility] Colonoscopy abstracted,no interpretation Anatomical Region Laterality Modality Other us Historical Provider HEALTH MAINTENANCE Final Result from Last 3 Months or Most Recently Relevant to Health Maintenance Insurance [facility] [place] [address] Care Teams Word Processing Specialist Relationship Specialty Start Date End Date Sharmin Gutierrez MD [address] [facility] , [address] [facility] D/B/A: Janeen Lewisaticaitlin In Internal Medicine ARRON Vernon PCP - General Internal Medicine 11/02/24
== END 2024-11-18 11:04 | disposition home or self-care (01) ==
PROVIDERS: PCP Internal Medicine; Visit Provider Internal Medicine
DX: J45.909 Unspecified asthma, uncomplicated (principal); E66.9 Obesity, unspecified; J30.9 Allergic rhinitis, unspecified; G47.33 Obstructive sleep apnea (adult) (pediatric)
CPT/HCPCS: 99213

== ENCOUNTER 2024-11-18 10:33 | Outpatient (REF) | payer OTHER, SELFPAY ==
[2024-11-18 12:25] LABS: Alanine Aminotransferase 24 U/L (0-31); Albumin Level 4.9 g/dL (3.5-5.0); Alkaline Phosphatase 86 U/L (39-117); Anion Gap 10 (12-20); Aspartate Amino Transferase 24 U/L (5-31); Blood Urea Nitrogen 10 mg/dL (9-16); Calcium 9.8 mg/dL (8.4-10.2); Carbon Dioxide 27 mmol/L (22-29); Chloride 109 mmol/L (96-108); Cholesterol 228 mg/dL (<200); Estimated Glomerular Filt Rate > 60; HDL Cholesterol 46 mg/dL (>40); Potassium 4.2 mmol/L (3.3-5.1); Sodium 142 mmol/L (135-145); Total Protein 7.6 g/dL (6.5-8.0); Triglycerides 125 mg/dL (<150)
[2024-11-18 12:37] LABS: Free T4 (Free Thyroxine) 1.22 ng/dL (0.71-1.85); Thyroid Stimulating Hormone 1.56 uIU/mL (0.32-4.0)
[2024-11-19 18:54] LABS: Thyroglobulin Antibodies <1 IU/mL (< or = 1)
== END 2024-11-18 10:34 | disposition home or self-care (01) ==
LOC: HO.LAB 10:33
PROVIDERS: Absent Provider Internal Medicine; PCP Internal Medicine; Visit Provider Internal Medicine
DX: Z00.00 Encounter for general adult medical examination without abnormal findings (principal); J45.909 Unspecified asthma, uncomplicated; E55.9 Vitamin D deficiency, unspecified; E78.5 Hyperlipidemia, unspecified; E03.9 Hypothyroidism, unspecified; E66.9 Obesity, unspecified; G47.33 Obstructive sleep apnea (adult) (pediatric); Z79.51 Long term (current) use of inhaled steroids; Z68.34 Body mass index [BMI] 34.0-34.9, adult
CPT/HCPCS: 36415; 80053; 80061; 82306; 84439; 84443; 86376; 86800; 99212

== ENCOUNTER 2025-02-24 13:24 | Outpatient (AMB) | payer OTHER, SELFPAY ==
[2025-02-24 13:32] VITALS: BP 110/82; PULSE 60; O2SAT 96; BMI 33.4
--- NOTE | 2025-02-24 13:32 | MHC.PC.OV ---
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 Accompanied by: Self / Same As Patient Allergies sumatriptan (From IMITREX) Allergy (Intermediate, Verified 02/24/25 13:48) rash, shortness of breath morphine Adverse Reaction (Severe, Verified 02/24/25 13:48) Migraine Medication List - Last Reconciled 02/24/25 by Sharmin Gutierrez MD budesonide-formoterol 160-4.5 mcg/actuation (Symbicort) 2 puffs inhalation BID cholestyramine (with sugar) 4 gram 4 grams PO BID 30 days fluoxetine 10 mg PO DAILY 90 days fluticasone propionate 50 mcg/actuation 2 sprays intranasal DAILY gabapentin 600 mg PO TID 90 days levothyroxine 88 mcg PO DAILY 90 days loperamide (Imodium A-D) 2 mg PO Q6H PRN montelukast 10 mg PO DAILY omeprazole 40 mg PO DAILY Ventolin HFA 90 mcg/actuation (albuterol sulfate) 2 puffs inhalation Q6H PRN NS Tobacco use date assessed: 02/24/25 Dental Screening Dental Screen Date: 02/24/25 Did you have a dental visit in the last 12 months?: Yes Did you have a dental problem in the last 6 months where you did not have access to dental care?: No Was dental information given to patient?: Patient has dentist HPI HPI Comments History of Present Illness Details This is a 49-year-old female with hypothyroidism, asthma and mild major depression that comes today as hospital discharge follow-up due to asthma exacerbation last month. She mentioned she did had pericarditis the 1st time she went to ER but I do not see anything on the record. Feels markedly improved right no shortness of breath. Last TSH was normal. Asthma has been well control since discharge. Depression stable with antidepressants. She also has onychogryposis on right 1st toenail that is painful when she will be referred to Podiatry. [facility] Medical History (Updated 02/24/25 @ 13:56 by Sharmin Gutierrez MD) Moderate recurrent major depression Epistaxis JAMAR (obstructive sleep apnea) Somnolence, daytime Obesity (BMI 35.0-39.9 without comorbidity) Bronchitis Post covid-19 condition, unspecified Family history of breast cancer Hypovitaminosis D Insomnia Left foot pain Left wrist pain Bloody stools Family history of colon cancer Colon polyps Physical exam Surgical History History of umbilical hernia repair (~12/07/21) History of cholecystectomy History of carpal tunnel surgery History of colonoscopy History of bilateral breast reduction surgery History of back surgery History of hysterectomy Family History Father Hypothyroid Thyroid cancer Asthma Migraine Mother Breast cancer, Onset Age: 21 Social History Housing: House Alcohol intake: current Alcohol intake frequency: holidays/special occasions only Alcohol type: wine Patient Tobacco Use Status: Never used Tobacco e-Cigarette/Vaping Use: Never Used Second Hand Smoke Exposure: No service: No Current occupational status: unemployed Cognitive needs: No Hearing needs: No Vision needs: No Questionnaire PHQ-9 Over the last 2 weeks, how often have you been bothered by any of the following problems? 1. Little interest or pleasure in doing things: several days 2. Feeling down, depressed, or hopeless: not at all 3. Trouble falling or staying asleep, or sleeping too much: several days 4. Feeling tired or having little energy: several days 5. Poor appetite or overeating: several days 6. Feeling bad about yourself - or that you are a failure or have let yourself or your family down: not at all 7. Trouble concentrating on things, such as reading the newspaper or watching television: not at all 8. Moving or speaking so slowly that other people could have noticed. Or the opposite - being so fidgety or restless that you have been moving around a lot more than usual: not at all 9. Thoughts that you would be better off or of hurting yourself in some way: not at all Total score: 4 Depression Screening Interpretation: Positive Depression Screening Follow-up: Existing condition and Follow-up Visit Requested Depression Screening Done: Yes 62219 - PHQ-9 Billing: Yes Source: Developed by Drs. Donn Mckeon, Meek Olivares and colleagues, with an educational darrel from [employer]. Thrive Questionnaire Date Thrive assessed: 02/24/25 I am a: Patient What is your living situation today?: I have a steady place to live Within the past 12 months, did the food you bought not last and you didn't have the money to get more?: Often true Within the past 12 months, did you worry whether your food would run out before you got money to buy more?: Often true Do you have trouble paying for medicines?: No Do you have trouble getting transportation to medical appointments?: No Do you have trouble paying your heating and electricity bill?: No Do you have trouble taking care of your child, family member or friend?: No Do you have trouble with day-to-day activities such as bathing, preparing meals, shopping, managing finances, etc.?: No Are you currently unemployed and looking for a job?: No Are you interested in more education?: I choose not to answer this question Please select the resources that you would like help with: None Currently or been in a relationship where the following occur: I choose not to answer THRIVE Score: 2 AUDIT C Alcohol Use Questionnaire (AUDIT-C) 1. How often do you have a drink containing alcohol?: Never 3. How often do you have six or more drinks on one occasion?: Never Total Score: 0 Score Reviewed/Action Taken: No ALIZA-7 AMB Questionnaire ALIZA-7 Date ALIZA - 7 assessed: 02/24/25 Feeling nervous, anxious, or on edge: 1 = Several days Not being able to stop or control worryin = Not at all Worrying too much about different things: 0 = Not at all Trouble relaxin = Several days Being so restless that it is hard to sit still: 0 = Not at all Becoming easily annoyed or irritable: 0 = Not at all Feeling afraid as if something awful might happen: 0 = Not at all Total ALIZA-7 score (0-4 normal; 5-9 mild; 10-14 moderate; 15-21 severe): 2 Source: Developed by Rebecca Jennings Kurt Kroenke and colleagues, with an educational darrel from [employer]. ALIZA-7 Assessment Billing ALIZA-7 Assessment Tool: ALIZA-7 Assessment 61509 Review of Systems Const All systems reviewed & are unremarkable except as noted in HPI and below Card Denies chest pain at rest, Denies chest pain with activity, Denies edema, Denies irregular heart rhythm, Denies claudication, Denies dyspnea, Denies dyspnea on exertion, Denies orthopnea, Denies paroxysmal nocturnal dyspnea and Denies slow heart rate Resp Denies cough, Denies dyspnea and Denies dyspnea on exertion Physical exam (Primary Care) Vital Signs: Last Vital Signs Pulse 60 02/24/25 13:32 BP 110/82 02/24/25 13:32 Pulse Ox 96 02/24/25 13:32 Oxygen Delivery Method Room Air 02/24/25 13:32 BMI result Body Mass Index 33.4 Tobacco/Smoking Status: Tobacco use Status Tobacco use date assessed 02/24/25 02/24/25 13:36 Patient Tobacco Use Status Never used Tobacco 02/24/25 13:36 e-Cigarette/Vaping Use Never Used 02/24/25 13:36 PHQ-9: PHQ-9 Score PHQ-9: Total score 4 02/24/25 13:36 Depression Screening Interpretation: Positive Depression Screening Follow-up: Existing condition and Follow-up Visit Requested Thrive Assessment: Date of Thrive Assessment Date Thrive assessed 02/24/25 02/24/25 13:36 Currently or been in a relationship where the following occur: I choose not to answer Resp Effort & Inspection: normal respiratory effort Auscultation: clear to auscultation bilaterally Cardio Jugular venous distension: no JVD Rate: regular rate Rhythm: regular rhythm Heart sounds: S1 normal heart sound present and S2 normal heart sound present Extrem General: Yes full ROM Coding Level of Care Code Add On Preventative Visit Only Diagnoses Mild recurrent major depression F33.0 Hypothyroid E03.9 Allergic asthma J45.909 Onychogryposis L60.2 Additional Codes PHQ-9 - 01609 - PHQ-9 Billing: Yes ([id number]) ALIZA-7 Assessment Billing - ALIZA-7 Assessment Tool: ALIZA-7 Assessment 29575 ([id number]) Time Spent (min) 22 Assessment & Plan Assessment & Plan (1) Mild recurrent major depression: Code(s): F33.0 - Major depressive disorder, recurrent, mild Category: Medical (2) Hypothyroid: Comment: 2015 Code(s): E03.9 - Hypothyroidism, unspecified Category: Medical (3) Allergic asthma: Comment: This patient has chronic allergic bronchial asthma, Her allergens are, usual environmental agents, including dogs that she has at home. The bronchial asthma seems to be fairly well controlled at this time. Code(s): J45.909 - Unspecified asthma, uncomplicated Category: Medical (4) Onychogryposis: Code(s): L60.2 - Onychogryphosis Category: Medical Plan Continue same medications. Repeat TSH today. Orders: Orders Comprehensive Ceres. Panel Fast 5 Months K21.9 - Gastro-esophageal reflux disease without esophagitis Thyroid Stimulating Hormone 5 Months E03.9 - Hypothyroidism, unspecified Thyroid Stimulating Hormone Today E03.9 - Hypothyroidism, unspecified Lipid Panel 5 Months E78.5 - Hyperlipidemia, unspecified Referrals Podiatry Referral L60.2 - Onychogryphosis
--- OUTSIDE RECORDS SUMMARY | 2025-02-24 16:45 | XMS_ITS | Data Portability ---
Author Organization [facility], [address] Address [address] [place] [address] Assessment No assessment recorded. Plan of Treatment Reminders Order Date Submit Date Provider Last Modified By Organization Details Last Modified Time Details Appointments None recorded. Lab urinalysis , dipstick 2022 023 [email or web address], [address] [place] [address], [place], [address], 3 16:35:45 culture, urine 2022 023 [facility], [address] [place] [address], [place], [address], 3 06:08:04 Referral None recorded. Procedures None recorded. Surgeries None recorded. Imaging None recorded. Medication Orders Macrobid 100 mg capsule 2022 023 [id number], [address], [place], [id number], 3 16:45:02 Patient TargetsNo targets recorded. Patient Instructions Encounter Date Encounter Id Patient Instructions Last Modified By Organization Details Last Modified Time 09/29/2022 [id number] We recommend you get a repeat urinalysis [...] a visit to the nearest Emergency Department. [email or web address] Not available 09/29/2022 16:35:38 Reason for Referral None Reported. Results Created Date Observation Date Name Description Value Unit Range Abnormal Flag Note LastModifiedBy Organization Detail LastModifiedTime 09/30/1910/01/2022 URINE CULTU RE, SYDI NE urine culture, routine FINAL REPORT Not Available [facility] ([facility]) [address] [facility], [place], [address], 10/01/2022 06:08:04 09/30/1910/01/2022 URINE CULTU RE, CARMELINA NE result 1 NO GROWTH Not Available [facility] ([facility]) [address] [facility], [place], [address], 10/01/2022 06:08:04 09/30/19 23 09/29/2022 urina lysis , dipst ick Unknown Analyte Normal = light yellow Not Available [address] [place] [address], [address], 09/29/2022 15:56:18 09/30/19 23 09/29/2022 urina lysis , dipst ick Unknown Analyte Yellow Not Available [address] [place] [address], [address], 09/29/2022 15:56:18 09/30/19 23 09/29/2022 urina lysis , dipst ick Unknown Analyte Normal = clear Not Available [address] [place] [address], [address], 09/29/2022 15:56:18 09/30/19 23 09/29/2022 urina lysis , dipst ick Unknown Analyte Clear Not Available [address], [place], [address], 09/29/2022 15:56:18 09/30/1909/29/2022 urina lysis , dipst ick Unknown Analyte Normal = negati ve Not Available [facility] [address], [place], [address], 09/29/2022 15:56:18 09/30/19 23 09/29/2022 urina lysis , dipst ick Unknown Analyte Negati ve Not Available [facility] [address], [place], [address], 09/29/2022 15:56:18 09/30/19 23 09/29/2022 urina lysis , dipst ick Unknown Analyte Normal = Negati ve Not Available [facility] [address], [place], [address], 09/29/2022 15:56:18 09/30/19 23 09/29/2022 urina lysis , dipst ick Unknown Analyte Small Not Available [address], [place], [address], 09/29/2022 15:56:18 09/30/19 23 09/29/2022 urina lysis , dipst ick Unknown Analyte Normal = Negati ve Not Available [address], [place], [address], 09/29/2022 15:56:18 09/30/19 23 09/29/2022 urina lysis , dipst ick Unknown Analyte Negati ve Not Available [facility] [address], [place], [address], 09/29/2022 15:56:18 09/30/19 23 09/29/2022 urina lysis , dipst ick Unknown Analyte Normal = 1.010, 1.015, 1.020 Not Available [facility] [address], [place], [address], 09/29/2022 15:56:18 09/30/19 23 09/29/2022 urina lysis , dipst ick Unknown Analyte 1.030 Not Available [address], [place], [address], 09/29/2022 15:56:18 09/30/19 23 09/29/2022 urina lysis , dipst ick Unknown Analyte Normal = Negati ve Not Available [address], [place], [address], 09/29/2022 15:56:18 09/30/19 23 09/29/2022 urina lysis , dipst ick Unknown Analyte Negati ve Not Available [address], [place], [address], 09/29/2022 15:56:18 09/30/19 23 09/29/2022 urina lysis , dipst ick Unknown Analyte Normal = 6.5, 7.0, 7.5, 8.0 Not Available [address], [place], [address], 09/29/2022 15:56:18 09/30/19 23 09/29/2022 urina lysis , dipst ick Unknown Analyte 5.0 Not Available [address], [place], [address], 09/29/2022 15:56:18 09/30/19 23 09/29/2022 urina lysis , dipst ick Unknown Analyte Normal = Negati ve Not Available [address] [place] [address], [place], [address], 09/29/2022 15:56:18 09/30/19 23 09/29/2022 urina lysis , dipst ick Unknown Analyte Trace Not Available [facility] [address], [place], [address], 09/29/2022 15:56:18 09/30/19 23 09/29/2022 urina lysis , dipst ick Unknown Analyte Normal = 0.2, 1.0 Not Available eveline chao [address], [place], [address], 09/29/2022 15:56:18 09/30/19 23 09/29/2022 urina lysis , dipst ick Unknown Analyte 0.2 E.U./d L Not Available eveline [address], [place], [address], 09/29/2022 15:56:18 09/30/19 23 09/29/2022 urina lysis , dipst ick Unknown Analyte Normal = Negati ve Not Available eveline chao [address], [place], [address], 09/29/2022 15:56:18 09/30/19 23 09/29/2022 urina lysis , dipst ick Unknown Analyte Normal = Negati ve Not Available eveline chao [address], [place], [address], 09/29/2022 15:56:18 09/30/19 23 09/29/2022 urina lysis , dipst ick Unknown Analyte Negati ve Not Available eveline chao [address], [place], [address], 09/29/2022 15:56:18 09/30/19 23 09/29/2022 urina lysis , dipst ick Unknown Analyte Negati ve Not Available [facility] [address] [place] [address], [place], [address], 09/29/2022 15:56:18 Result Notes None recorded. Problems Name Problem SNOMED Code Status Onset Date Resolution Date Notes Provider Name and Address Organization Details Recorded Time Asthma 916073182 Active 2022 Aleah [place] null, [place] - [facility] 15:55:04 Hypothyroidism 44764694 Active 2022 Aleah [place] null, PA - [facility] 15:55:13 Neuropathy 762250204 Active 2022 Aleah [place] null, PA - [facility] 15:55:18 Problem Notes None recorded. Procedures Surgical History Date Name Laterality Status Provider Name and Address Organization Details Recorded Time cholecystectomy completed Aleah Charleston P A - [facility] 09/29/2022 15:55:45 hernia repair completed Aleah Charleston PA - [facility] 09/29/2022 15:55:51 lumbar [...] Name and Address Organization Details Recorded Time 973332 Imitrex medicatio n Not available Not available Not available 09/29/2022 27114 3 RxNorm Aleah Julián null, PA - [facility] 15:53:19 758107 morphine medicatio n Not available Not available Not available 09/29/2022 7052 RxNorm Aleah [place] null, PA - [facility] 15:53:23 Medications [...] [Score] - Reported Respiratory rate Oxygen saturation Heart rate Body temperature Systolic And Diastolic Provider Name and Address Organization Details Last Updated DateTime 3 658450. 84 g 35.6 kg/m2 171.45 cm 6 20 /min 98 % 69 /min 98 [degF] 107/74 mm[Hg] Aleah Gallego PA - [facility] 15:57:18 Social History Question Answer Notes LastModified by [employer] Details LastModified Time Tobacco Smoking Status Never Smoker Aleah Gallego delfina PA - [facility] 09/29/2022 15:55:28 Have You Had Direct Contact, Or Contact During Intimacy, With Monkeypox Rash, Scabs, Or Body Fluids From A Person With Monkeypox? No Information not available 09/29/2022 Have You Recently Traveled Abroad? No Information not available 09/29/2022 Sex: Unknown Functional Status Question Answer Note LastModified by [employer] Details LastModified Time Do you use any illicit or recreational drugs? No Information not available 09/29/2022 Do you or have you ever used any other forms of tobacco or nicotine? No Information not available 09/29/2022 What is your level of alcohol consumption? None Information not available 09/29/2022 Mental Status None recorded. Family History Relationship [...] Diagnosis SNOMED-CT Code Diagnosis ICD10 Code Diagnosis IMO Codes Diagnosis [place] [id number] [place] [address] [address] 09/29/2022 15:31:22 09/29/2022 16:41:24 Acute urinary tract infection 993568512 N39.0 Health Concerns Section Related Observation LastModified by Organization Detai ls LastModified Time None Recorded Concern Status LastModified by Organization Details LastModified Time None Recorded Advance Directives Directive None Recorded Payers Insurance Date Sequence Insurance Name Policy Number Policy Morgan Covered Member ID Morgan Member ID Guarantor Name 09/29/2022 1 [facility] PLAN (MEDICAID HMO) PHI Saldaña [id number] Nena Saldaña Notes Date Note Type Note Provider Name and Address Organization Details Recorded Time 09/29/2022 text/html Urinary Complain t FemaleReported by PatientUrinary problemsFor source of patient information, patient reportsinformation obtained from patientandpatient arrived at urgent care ambulatory. For uti symptoms, patient reportsno blood in the urine,no pain during urination,no vaginal discharge,no urgency,no pain in the flank,no fever/chills,no incontinence,no recurrent uti, andno known exposure to std.frequency and urgency x 1 day. denies any fever or fever with chills, denies any History of renal stone or bladder issues. frequency and urgency x 1 day. denies any fever or fever with chills, denies any History of renal stone or bladder issues. Senthil Ivy NP [address] [place], [address], [place] - [facility] 09/29/2022 16:40:41 OBGyn Episode No OBEpisode recorded.
--- OUTSIDE RECORDS SUMMARY | 2025-02-24 16:45 | XMS_ITS | Clinical Summary ---
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 5 Active gabapentin (NEURONTIN) 600 mg tablet Take 1 tablet (600 mg total) by mouth 3 (three) times a day. 7 Active omeprazole (PriLOSEC) [address] capsule Take 1 capsule (40 mg total) by mouth 1 (one) time each day. 7 Active levothyroxine (SYNTHROID, LEVOTHROID) 88 mcg tablet Take 1 tablet (88 mcg total) by mouth 1 (one) time each day. Active montelukast (SINGULAIR) 10 mg tablet Take 1 tablet (10 mg total) by mouth at bedtime. Active meloxicam (MOBIC) 15 mg tablet Take 1 tablet (15 mg total) by mouth 1 (one) time each day. 30 tablet 1 5 03/16/19 26 Active FLUoxetine (PROzac) 10 mg capsule Take 1 capsule (10 mg total) by mouth 1 (one) time each day. Active ipratropium-al buteroL (DUONEB) 0.5-2.5 mg/3 mL nebulizer solution Take 3 mL by nebulization 4 (four) times a day. 360 mL Active budesonide-for moteroL (SYMBICORT) 80-4.5 mcg/actuation inhaler Inhale 2 puffs by mouth 2 (two) times a day. Rinse mouth with water after use to reduce aftertaste and incidence of candidiasis. Do not swallow. 5 01/25/20 26 Active predniSONE (DELTASONE) 20 mg tablet Take 2 tablets (40 mg total) by mouth 1 (one) time each day for 3 doses. 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 [address] [place] [phone] Jayme De La Cruz MD Muhoozi, Bannet, MD Jones, Christopher, MD Flores, Carlos M, MD Santoyo-Pachec o, Angelo Chery MD Shortness of breath (Primary Dx); Mild intermittent asthma with exacerbation; Moderate persistent asthma with acute exacerbation Discharge Disposition: Home or Self Care 01/15/2025 8:45 AM EST Consult Orthopedic Surgery - [place] [address] [facility] [address] [place] [address] César Wong DPM Left foot pain (Primary Dx); Lumbosacral radiculopathy; Equinus contracture of left ankle from Last 3 Months Immunizations Immunization Administration Dates Next Due Tdap Tetanus diptheria acell ular pertussis (Boostrix; Adacel) 7yo and older 05/06/2014 Surgical History Surgery Date Site/Laterality Comments HYSTERECTOMY PROCEDURE: HISTORICAL HYSTERECTOMY; COMMENT: due to endometriosis, has ovaries BREAST BIOPSY PROCEDURE: BX BREAST; PERC NEEDLE CORE W/IMAG GUID; COMMENT: RT BREAST SURGERY PROCEDURE: WY UNLISTED PROCEDURE BREAST; COMMENT: RT SIDE MASS REMOVED AT 20 NONCANCEROUS BREAST REDUCTION PROCEDURE: WY BREAST REDUCTION COLONOSCOPY 12/18/09 [facility] PROCEDURE: WY COLONOSCOPY STOMA W/RMVL GORDON POLYP/OTH LES SNARE; COMMENT: 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 Repeat in 1 year. under propofol ESOPHAGOGASTRODUODENOSCOPY 08/07/14 [facility] PROCEDURE: WY ESOPHAGOGASTRODUODENOSCOPY TRANSORAL DIAGNOSTIC; COMMENT: normal, with nl esophageal biopsies COLONOSCOPY W/ BIOPSIES 09/22/15 PROCEDURE: WY COLONOSCOPY W/BIOPSY SINGLE/MULTIPLE; COMMENT: hemorrhoids; normal colonic [...] you may not have stable housing? No 01/23/2025 Food Access & Nutrition Answer Date Rec orded Do you have access to a vari ety of food including fruits and vegetables? Yes 01/23/2025 Access to Healthcare Answer Date Record ed Within the last 3 months, ho w many times did you visit the emergency department for your medical care? 1 01/23/2025 Health Literacy Answer Date Recorded How often [...] and air conditioning / heating? Somewhat hard 01/23/2025 Transportation Answer Date Recorded Has the lack of transportati on kept you from meetings, work, or from getting things needed for daily living? No Has the lack of transportati on kept you from medical appointments or from getting medications? No 01/23/2025 Social Isolation Answer Date Recorded How often do you feel lonely or isolated from th ose around you? Never 01/23/2025 Food Risk Answer Date Recorded Within the past 12 months we worried whether our food would run out before we got money to buy more. Never true 01/23/2025 Within the past 12 months th e food we bought just didn't last and we didn't have money to get more. Never true 01/23/2025 Dependent Care Answer Date Recorded Do you need help finding or paying for care for your loved ones. For example, child adolescent psychiatrist or elderly care for an older adult? No 01/23/2025 Education Answer Date Recorded Do you think completing more education or training, like finishing a GED, going to college, or learning a trade, would be helpful for you? N/A 01/23/2025 Employment and Income Answer Date Recor ded During the last four weeks, have you been actively looking for work? No 01/23/2025 Living Situation Answer Date Recorded What is your living situation? Unrecognized valu e 01/23/2025 Interpersonal Safety Answer Date Record ed Physical Abuse Unrecognized value 01/23/2025 Verbal Abuse Unrecognized value 01/23/2025 Comments No Sex and Gender Information Value Date Recorded Sex Assigned at Not on file Legal Sex Female 12:16 PM EST Gender Identity Not on file Sexual Orientation Not on file Last Filed Vital Signs Vital Sign Reading Time Taken Comments Blood Pressure 105/72 01/24/2025 7:36 AM EST Pulse 65 01/24/2025 7:36 AM EST Temperature 36.4 C (97.5 F) 01/24/2025 7:36 AM EST Respiratory Rate 22 01/24/2025 7:36 AM EST Oxygen Saturation 98% 01/24/2025 8:19 AM EST Inhaled Oxygen Concentration - - Weight 98.4 kg (217 lb) 01/22/2025 10:53 PM EST Height 170.2 cm (5' 7 ) 01/22/2025 10:53 PM EST Body Mass Index 33.99 01/22/2025 10:53 PM EST Plan of Treatment Upcoming Encounters Date Type Department Care Team (Late st Contact Info) Description 03/05/2025 8:45 AM EST Evaluation [facility] [place] 175 [facility] [address] [place] [phone] Maryuri Gutierrez, PT 04/21/2025 8:45 AM EST Office Visit Orthopedic Surgery - [place] [address] [facility] [address] [place] [address] César Wong, DPM 175 [facility] [address] [place] [address] Health Maintenance Due Date Last Done Comments Breast Cancer Screening 1974 Hepatitis B Vaccines (1 of 3 - 19+ 3-dose series) 1993 Pneumococcal Vaccine: 50+ Years (1 of 2 - PCV) 1993 Colorectal Cancer Screening: Colonoscopy 09/21/2020 09/22/2015 Cholesterol Screening (Lipid Panel) 02/01/2022 11/08/2016 HIV Screening 02/01/2022 Hepatitis C Screening 02/01/2022 Depression Screening 03/06/2024 RSV Immunization Adult Patients (1 - Risk 50-74 years 1-dose series) 2024 Zoster Vaccines (1 of 2) 2024 COVID-19 Vaccine (1 - 2024-2 6 season) 2024 Influenza Vaccine (#1) 2024 3, 01/17/2011 Social Influencers of Health Screening 01/23/2026 01/23/2025 DTaP,Tdap,and Td Vaccines (3 - Td or [...] Procedure Name Priority Date/Time Associated Diagnosis Comments ECG ANNOTATED 01/27/2025 CBC WITH AUTO DIFFERENTIAL Routine 01/24/2025 6:02 AM EST CBC AND DIFFERENTIAL Routine 01/24/2025 6:02 AM EST BASIC METABOLIC PANEL Routine 01/24/2025 6:02 AM EST POCT GLUCOSE BLOOD Routine 01/23/2025 9: 09 PM EST POCT GLUCOSE BLOOD Routine 01/23/2025 4: 06 PM EST POCT GLUCOSE BLOOD Routine 01/23/2025 11 :27 AM EST ELECTROLYTE PANEL STAT 01/23/2025 10: [address] ANGIO CHEST WO AND/OR W CONTRAST STAT 01/23/2025 8:21 AM EST Shortness of breath POCT GLUCOSE BLOOD Routine 01/23/2025 7: 56 AM EST CREATINE KINASE Add-On 01/23/2025 4:08 AM EST MAGNESIUM STAT Add-on 01/23/2025 4:08 AM EST HEMOGLOBIN A1C Add-On 01/23/2025 4:08 AM EST BETA HYDROXYBUTYRATE Add-On 01/23/2025 4:08 AM EST C-REACTIVE PROTEIN Add-On 01/23/2025 4: 08 AM EST CBC WITH AUTO DIFFERENTIAL STAT 01/23/2025 4:08 AM EST VENOUS BLOOD GAS STAT 01/23/2025 4:08 AM EST CBC AND DIFFERENTIAL STAT 01/23/2025 4:08 AM EST COMPREHENSIVE METABOLIC PANEL STAT 01/23/2025 4:08 AM EST XR CHEST 2 VIEWS STAT 01/23/2025 2:30 AM EST RESPIRATORY VIRUS PANEL MOLECULAR STUDY STAT 01/23/2025 12:14 AM EST LIPID PANEL Routine 11/08/2016 [facility] COLONOSCOPY Routine 09/22/2015 from Last 3 Months or Most Recently Relevant to Health Maintenance Results * ECG-Annotated (01/27/2025) us Provider Onbase MD ECG ORDERABLES Final Result * (ABNORMAL) CBC auto differential (01/24/2025 6:02 AM EST) Only the most recent of2 resultswithin the time period is included. WBC 12.4(H) 4.8 - 10.8 K/mcL LAB HEMETOLOGY METHOD 01/24/2025 6:38 AM [facility] RBC 3.80 3.80 - 4.80 M/mcL LAB HEMETOLOGY METHOD 01/24/2025 6:38 AM [facility] Hemoglobin 12.3 11.5 - 16.0 g/dL LAB HEMETOLOGY METHOD 01/24/2025 6:38 AM [facility] Hematocrit 35.8 35.0 - 47.0 % LAB HEMETOLOGY METHOD 01/24/2025 6:38 AM [facility] MCV 95.2 79.0 - 98.0 FL LAB HEMETOLOGY METHOD 01/24/2025 6:38 AM [facility] MCH 32.7(H) 27.0 - 32.0 pcg LAB HEMETOLOGY METHOD 01/24/2025 6:38 AM [facility] MCHC 34.4 32.0 - 37.0 g/dL LAB HEMETOLOGY METHOD 01/24/2025 6:38 AM [facility] RDW 13.2 11.0 - 15.0 % LAB HEMETOLOGY METHOD 01/24/2025 6:38 AM [facility] Platelets 203 130 - 400 K/mcL LAB HEMETOLOGY METHOD 01/24/2025 6:38 AM [facility] MPV 10.1 7.0 - 11.0 FL LAB HEMETOLOGY METHOD 01/24/2025 6:38 AM [facility] NRBC 0.0 <1.0 % LAB HEMETOLOGY METHOD 01/24/2025 6:38 AM [facility] NRBC Absolute 0.00 <0.10 K/mcL LAB HEMETOLOGY METHOD 01/24/2025 6:38 AM [facility] Neutrophils Relative 74.2 % LAB HEMETOLOGY METHOD 01/24/2025 6:38 AM [facility] Lymphocytes Relative 19.6 % LAB HEMETOLOGY METHOD 01/24/2025 6:38 AM [facility] Monocytes Relative 5.3 % LAB HEMETOLOGY METHOD 01/24/2025 6:38 AM [facility] Eosinophils Relative 0.4 % LAB HEMETOLOGY METHOD 01/24/2025 6:38 AM [facility] Basophils Relative 0.2 % LAB HEMETOLOGY METHOD 01/24/2025 6:38 AM [facility] Immature Granulocytes Relative 0.3 % LAB HEMETOLOGY METHOD 01/24/2025 6:38 AM [facility] Neutrophils Absolute 9.18(H) 1.50 - 7.00 K/mcL LAB HEMETOLOGY METHOD 01/24/2025 6:38 AM [facility] Lymphocytes Absolute 2.43 1.00 - 5.00 K/mcL LAB HEMETOLOGY METHOD 01/24/2025 6:38 AM [facility] Monocytes Absolute 0.65 0.20 - 1.00 K/mcL LAB HEMETOLOGY METHOD 01/24/2025 6:38 AM [facility] Eosinophils Absolute 0.05 0.00 - 0.50 K/mcL LAB HEMETOLOGY METHOD 01/24/2025 6:38 AM [facility] Basophils Absolute 0.02 0.00 - 0.20 K/mcL LAB HEMETOLOGY METHOD 01/24/2025 6:38 AM [facility] Immature Granulocytes Absolute 0.04(H) 0.00 - 0.03 K/mcL LAB HEMETOLOGY METHOD 01/24/2025 6:38 AM [facility] Blood Venous blood specimen / Unknown Venipuncture / Unknown 01/24/2025 6:02 AM EST 01/24/2025 6:23 AM EST us Socrates Malin MD LAB BLOOD ORDERABLES Final Result [facility] [address] [place] [address], * Basic metabolic panel (01/24/2025 6:02 AM EST) Sodium 143 133 - 145 mmol/L 01/24/2025 7:19 AM [facility] Potassium 4.5 3.5 - 5.5 mmol/L 01/24/2025 7:19 AM [facility] Chloride 109 96 - 110 mmol/L 01/24/2025 7:19 AM [facility] CO2 26 21 - 32 mmol/L 01/24/2025 7:19 AM [facility] Anion Gap 8 3 - 11 01/24/2025 7:19 AM [facility] Glucose 86 70 - 100 mg/dL 01/24/2025 7:19 AM [facility] BUN 12 5 - 25 mg/dL 01/24/2025 7:19 AM [facility] Creatinine 0.76 0.50 - 1.10 mg/dL 01/24/2025 7:19 AM [facility] eGFR 96 >=60 mL/min/1. 73m2 01/24/2025 7:19 AM [facility] Comment:Calculation based on the Chronic Kidney Disease Epidemiology Collaboration (CKD-EPI) equation refit without adjustment for race. BUN/Creatinine Ratio 15.8 01/24/2025 7:19 AM EST [facility] Calcium 8.8 8.5 - 10.5 mg/dL 01/24/2025 7:19 AM EST [facility] Blood Venous blood specimen / Unknown Venipuncture / Unknown 01/24/2025 6:02 AM EST 01/24/2025 6:24 AM EST Socrates Malin MD LAB BLOOD ORDERABLES Final Result Performing Organization Address [facility]/ZIP Co de Phone Number [facility] [address] [place] [address], [place] [phone] * (ABNORMAL) POCT Glucose, blood (01/23/2025 9:09 PM EST) Only the most recent of4 resultswithin the time period is included. Glucose POCT 124(H) 70 - 100 mg/dL 01/23/2025 9:10 PM [facility] Blood Capillary blood specimen / Unknown 01/23/2025 9:09 PM EST 01/23/2025 9:11 PM EST Geovany Cason MD LAB POINT OF CARE TE ST DOCKED DEVICE UNSOLICITED RESULTS Final Result Performing Organization Address City/[facility]/ZIP Co de Phone Number [facility] [address] [place] [address], [place] [phone] * (ABNORMAL) Electrolyte panel (01/23/2025 10:31 AM EST) Sodium 139 133 - 145 mmol/L 01/23/2025 12:00 PM [facility] Potassium 4.3 3.5 - 5.5 mmol/L 01/23/2025 12:00 PM EST [facility] Chloride 106 96 - 110 mmol/L 01/23/2025 12:00 PM EST [facility] CO2 18(L) 21 - 32 mmol/L 01/23/2025 12:00 PM EST [facility] Anion Gap 15(H) 3 - 11 01/23/2025 12:00 PM EST [facility] Blood Venous blood specimen / Unknown Venipuncture / Unknown 01/23/2025 10:31 AM EST 01/23/2025 10:35 AM EST us Geovany Cason MD LAB BLOOD ORDERABLES Final Re sult [facility] [address] [place] [address], [place] [phone] * CT Angio Chest wo and/or w Contrast (01/23/2025 8:21 AM EST) Anatomical Region Laterality Modality Body Computed Tomogra phy 01/23/2025 8:25 AM EST Impressions 01/23/2025 8:34 AM EST No pulmonary embolism. No acute findings. -------- FINAL REPORT -------- Dictated By: Bryon Mason Dictated Date: 01/23/2025 08:25 ET Assigned Physician: Bryon Mason Reviewed and Electronically Signed By: Bryon Mason Signed Date: 01/23/2025 08:34 ET Workstation ID: [id number] Transcribed By: Self Edit Transcribed Date: 01/23/2025 08:28 ET Narrative 01/23/2025 8:34 AM EST PROCEDURE: CT pulmonary angiogram. HISTORY: OTHER sob? PE, worsening pericardial effusion. TECHNIQUE: CT of the chest with intravenous contrast administration with pulmonary angiogram protocol. Coronal and sagittal reformats and MIP reconstructions were created. Dose length product: 351 mGy-cm. Contrast dose: 90 mL ISOVUE-370. COMPARISON: 07/15/2024. FINDINGS: LUNGS/PLEURA: Assessment of the bases is limited by motion The central airways are normal in caliber. There is mild bronchial wall thickening at the bases. Bands of atelectasis or scarring at both bases. No pleural effusion or pneumothorax. MEDIASTINUM/ASA: No mass or lymphadenopathy. VASCULATURE: Normal caliber pulmonary arteries. No pulmonary embolism. Bovine aortic arch configuration. CARDIAC: Normal heart size. No coronary artery calcification. CHEST WALL: No axillary or supraclavicular lymphadenopathy. LIMITED ABDOMEN: Unremarkable. BONES: Mild degenerative changes of the spine. No suspicious bony lesion. Procedure Note Bryon Mason MD - 01/23/2025 PROCEDURE: CT pulmonary angiogram. HISTORY: OTHER sob? PE, worsening pericardial effusion. TECHNIQUE: CT of the chest with intravenous contrast administration withpulmonary angiogram protocol. Coronal and sagittal reformats and MIPreconstructions were created. Dose length product: 351 mGy-cm. Contrast dose: 90 mL ISOVUE-370. COMPARISON: 07/15/2024. FINDINGS: LUNGS/PLEURA: Assessment of the bases is limited by motion The centralairways are normal in caliber. There is mild bronchial wall thickening atthe bases. Bands of atelectasis or scarring at both bases. No pleuraleffusion or pneumothorax. MEDIASTINUM/ASA: No mass or lymphadenopathy. VASCULATURE: Normal caliber pulmonary arteries. No pulmonary embolism.Bovine aortic arch configuration. CARDIAC: Normal heart size. No coronary artery calcification. CHEST WALL: No axillary or supraclavicular lymphadenopathy. LIMITED ABDOMEN: Unremarkable. BONES: Mild degenerative changes of the spine. No suspicious bonylesion. IMPRESSION: No pulmonary embolism. No acute findings. -------- FINAL REPORT -------- Dictated By: Bryon Mason Dictated Date: 01/23/2025 08:25 ET Assigned Physician: Bryon Mason Reviewed and Electronically Signed By: Bryon Mason Signed Date: 01/23/2025 08:34 ET Workstation ID: [id number] Transcribed By: Self Edit Transcribed Date: 01/23/2025 08:28 ET May Shine NP IM CT PROCEDURES Final Result * Beta hydroxybutyrate (01/23/2025 4:08 AM EST) Beta-Hydroxybu tyrate 1.2 0.2 - 2.8 mg/dL 01/23/2025 8:17 AM EST [facility] Blood Venous blood specimen / Unknown Venipuncture / Unknown 01/23/2025 4:08 AM EST 01/23/2025 4:16 AM EST us Geovany Cason MD LAB BLOOD ORDERABLES Final Re sult [facility] [address] [place] [address], [place] [phone] * C-reactive protein (01/23/2025 4:08 AM EST) C-Reactive Protein <0.50 <=0.50 mg/dL 01/23/2025 8:21 AM EST [facility] Blood Venous blood specimen / Unknown Venipuncture / Unknown 01/23/2025 4:08 AM EST 01/23/2025 4:16 AM EST us Geovany Cason MD LAB BLOOD ORDERABLES Final Re sult Performing Organization Address City/[facility]/ZIP Co de Phone Number [facility] [address] [place] [address], [place] [phone] * Magnesium (01/23/2025 4:08 AM EST) Magnesium 2.1 1.9 - 2.6 mg/dL 01/23/2025 8:18 AM EST [facility] Blood Venous blood specimen / Unknown Venipuncture / Unknown 01/23/2025 4:08 AM EST 01/23/2025 4:16 AM EST us Geovany Cason MD LAB BLOOD ORDERABLES Final Re sult [facility] [address] [place] [address], * Hemoglobin A1c (01/23/2025 4:08 AM EST) Pathologist [facility] Hemoglobin A1C 5.1 <6.5 % LAB CHEMISTRY METHOD 01/23/2025 12:31 PM EST [facility] Mean Bld Glu Estim. 100 mg/dL LAB CHEMISTRY METHOD 01/23/2025 12:31 PM [facility] Blood Venous blood specimen / Unknown Venipuncture / Unknown 01/23/2025 4:08 AM EST 01/23/2025 4:16 AM EST Geovany Cason MD LAB BLOOD ORDERABLES Final Re sult [facility] [address] [place] [address], [place] [phone] * (ABNORMAL) Venous blood gas (01/23/2025 4:08 AM EST) Pathologist [facility] pH, Robby 7.36 7.32 - 7.42 pH 01/23/2025 4:17 AM [facility] pCO2, Robby 38(L) 41 - 51 mmHg 01/23/2025 4:17 AM [facility] pO2, Robby 48(H) 25 - 40 mmHg 01/23/2025 4:17 AM [facility] HCO3, Venous 21.4(L) 22.0 - 26.0 mmol/L 01/23/2025 4:17 AM [facility] O2 Sat, Robby 70.4 % 01/23/2025 4:17 AM [facility] Base Excess, Robby -3.5(L) -2.0 - 2.0 mmol/L 01/23/2025 4:17 AM [facility] Blood Venous blood specimen / Unknown Venipuncture / Unknown 01/23/2025 4:08 AM EST 01/23/2025 4:15 AM EST Roger Wing MD LAB BLOOD ORDERABLES Final Res ult Performing Organization Address [facility]/ZIP Co de Phone Number [facility] [address] [place] [address], [place] [phone] * Creatine kinase (01/23/2025 4:08 AM EST) Total CK 40 34 - 145 unit/L 01/23/2025 10:37 AM EST [facility] Blood Venous blood specimen / Unknown Venipuncture / Unknown 01/23/2025 4:08 AM EST 01/23/2025 4:16 AM EST Geovany Cason MD LAB BLOOD ORDERABLES Final Re sult Performing Organization Address [facility]/ZIP Co de Phone Number [facility] [address] [place] [address], [place] [phone] * (ABNORMAL) Comprehensive Metabolic Panel (CMP) (01/23/2025 4:08 AM EST) Pathologist [facility] Sodium 141 133 - 145 mmol/L 01/23/2025 5:17 AM [facility] Potassium 2.8(LL) 3.5 - 5.5 mmol/L 01/23/2025 5:17 AM [facility] Chloride 105 96 - 110 mmol/L 01/23/2025 5:17 AM [facility] CO2 21 21 - 32 mmol/L 01/23/2025 5:17 AM [facility] Anion Gap 15(H) 3 - 11 01/23/2025 5:17 AM [facility] Glucose 238(H) 70 - 100 mg/dL 01/23/2025 5:17 AM [facility] BUN 14 5 - 25 mg/dL 01/23/2025 5:17 AM [facility] Creatinine 0.84 0.50 - 1.10 mg/dL 01/23/2025 5:17 AM [facility] eGFR 85 >=60 mL/min/1. 73m2 01/23/2025 5:17 AM [facility] Comment:Calculation based on the Chronic Kidney Disease Epidemiology Collaboration (CKD-EPI) equation refit without adjustment for race. BUN/Creatinine Ratio 16.7 01/23/2025 5:17 AM [facility] Calcium 9.2 8.5 - 10.5 mg/dL 01/23/2025 5:17 AM [facility] AST (SGOT) 18 10 - 42 unit/L 01/23/2025 5:17 AM [facility] ALT (SGPT) 21 10 - 60 unit/L 01/23/2025 5:17 AM [facility] Alkaline Phosphatase 91 42 - 121 unit/L 01/23/2025 5:17 AM [facility] Total Protein 6.8 6.0 - 8.0 g/dL 01/23/2025 5:17 AM [facility] Albumin 4.0 3.2 - 5.0 g/dL 01/23/2025 5:17 AM [facility] Total Bilirubin 0.3 0.0 - 1.4 mg/dL 01/23/2025 5:17 AM [facility] Blood Venous blood specimen / Unknown Venipuncture / Unknown 01/23/2025 4:08 AM EST 01/23/2025 4:16 AM EST us Roger Wing MD LAB BLOOD ORDERABLES Final Res ult [facility] [address] [place] [address], * XR Chest 2 Views (01/23/2025 2:30 AM EST) Anatomical Region Laterality Modality Body Radiographic Jackie ging 01/23/2025 8:18 AM EST Impressions 01/23/2025 8:19 AM EST No acute findings. -------- FINAL REPORT -------- Dictated By: Bryon Mason Dictated Date: 01/23/2025 08:18 ET Assigned Physician: Bryon Mason Reviewed and Electronically Signed By: Bryon Mason Signed Date: 01/23/2025 08:19 ET Workstation ID: [id number] Transcribed By: Self Edit Transcribed Date: 01/23/2025 08:18 ET Narrative 01/23/2025 8:19 AM EST PROCEDURE: PA and lateral radiographs of the chest. HISTORY: dyspnea. COMPARISON: 07/15/2024. FINDINGS: Mildly hypoventilatory exam. Linear bands of scarring or atelectasis at the left base. Cardiomediastinal contours, pulmonary vasculature, and pleural spaces are normal. Cholecystectomy clips. Bones appear mildly demineralized. Procedure Note Bryon Mason MD - 01/23/2025 PROCEDURE: PA and lateral radiographs of the chest. HISTORY: dyspnea. COMPARISON: 07/15/2024. FINDINGS: Mildly hypoventilatory exam. Linear bands of scarring or atelectasis atthe left base. Cardiomediastinal contours, pulmonary vasculature, andpleural spaces are normal. Cholecystectomy clips. Bones appear mildlydemineralized. IMPRESSION: No acute findings. -------- FINAL REPORT -------- Dictated By: Bryon Mason Dictated Date: 01/23/2025 08:18 ET Assigned Physician: Bryon Mason Reviewed and Electronically Signed By: Bryon Mason Signed Date: 01/23/2025 08:19 ET Workstation ID: [id number] Transcribed By: Self Edit Transcribed Date: 01/23/2025 08:18 ET us Socrates Malin MD IMG XR PROCEDURES Final Res ult * Respiratory virus panel molecular study (01/23/2025 12:14 AM EST) Pathologist [facility] Adenovirus Detection by PCR Not Detected Not Detected LAB MICROBIOLOGY METHOD 01/23/2025 2:37 AM [facility] Influenza A PCR Not Detected Not Detected LAB MICROBIOLOGY METHOD 01/23/2025 2:37 AM [facility] Influenza B PCR Not Detected Not Detected LAB MICROBIOLOGY METHOD 01/23/2025 2:37 AM [facility] Coronavirus 229E Not Detected Not Detected LAB MICROBIOLOGY METHOD 01/23/2025 2:37 AM [facility] Coronavirus HKU1 Not Detected Not Detected LAB MICROBIOLOGY METHOD 01/23/2025 2:37 AM [facility] Coronavirus OC43 Not Detected Not Detected LAB MICROBIOLOGY METHOD 01/23/2025 2:37 AM [facility] Coronavirus NL63 Not Detected Not Detected LAB MICROBIOLOGY METHOD 01/23/2025 2:37 AM [facility] Parainfluenza Virus 1 Not Detected Not Detected LAB MICROBIOLOGY METHOD 01/23/2025 2:37 AM [facility] Parainfluenza Virus 2 Not Detected Not Detected LAB MICROBIOLOGY METHOD 01/23/2025 2:37 AM [facility] Parainfluenza Virus 3 Not Detected Not Detected LAB MICROBIOLOGY METHOD 01/23/2025 2:37 AM [facility] Parainfluenza Virus 4 Not Detected Not Detected LAB MICROBIOLOGY METHOD 01/23/2025 2:37 AM [facility] RSV PCR Not Detected Not Detected LAB MICROBIOLOGY METHOD 01/23/2025 2:37 AM [facility] Human Metapneumovirus A and B Not Detected Not Detected LAB MICROBIOLOGY METHOD 01/23/2025 2:37 AM [facility] Rhinovirus/Entero virus Not Detected Not Detected LAB MICROBIOLOGY METHOD 01/23/2025 2:37 AM EST [facility] Bordetella pertussis Not Detected Not Detected LAB MICROBIOLOGY METHOD 01/23/2025 2:37 AM [facility] Bordetella parapertussis Not Detected Not Detected LAB MICROBIOLOGY METHOD 01/23/2025 2:37 AM [facility] Mycoplasma pneumo by PCR Not Detected Not Detected LAB MICROBIOLOGY METHOD 01/23/2025 2:37 AM EST [facility] Chlamydia pneumoniae Not Detected Not Detected LAB MICROBIOLOGY METHOD 01/23/2025 2:37 AM [facility] SARS COV-2 Not Detected Not Detected LAB MICROBIOLOGY METHOD 01/23/2025 2:37 AM [facility] Swab Both anterior nares / Unknown Non-blood Collection / Unknown 01/23/2025 12:14 AM EST 01/23/2025 2:21 AM EST [facility] - 01/23/2025 2:37 AM EST Testing was performed using the shoutr Respiratory Pathogen PCR Assay. All results must be correlated with the clinical findings. Results should not be used as the sole basis for diagnosis. False Negative results may occur from the presence of sequence variants in the region targeted by the assay or the presence of inhibitors. Results may be affected by concurrent antiviral/antimicrobial therapy or levels of organisms that are below the limit of detection. Jayme De La Cruz MD LAB MICROBIOLOGY - GENERAL ORDE KORIN Final Result [facility] [address] [place] [address], * (ABNORMAL) Lipid panel (11/08/2016) LDL/HDL Ratio 5(A) 0 - 4 Triglycerides 185(A) 0 - 150 mg/dL Cholesterol 201(A) 0 - 200 mg/dL HDL 43 >=40 mg/dL LDL Cholesterol 121(A) 0 - 100 mg/dL Blood Venous blood specimen / Unknown Historical Provider LAB BLOOD ORDERABLES Ileana l Result * Colonoscopy (09/22/2015) Colonoscopy abstracted,no interpretation Anatomical Region Laterality Modality Other us Historical Provider HEALTH MAINTENANCE Final Result from Last 3 Months or Most Recently Relevant to Health Maintenance Insurance [facility] Advance Directives * Full Code - Default (Latest Code Status on File) Date Activated Date Inactivated Comments 01/24/2025 8:05 AM 01/24/2025 1:52 PM This is or kalyn is used when code status has not been discussed with the patient, or code status is otherwise unknown/unconfirmed To update the patient's code status, place a code status order. Do not modify or discontinue any currently active code status orders. 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
== END 2025-02-24 14:00 | disposition home or self-care (01) ==
LOC: HO.HMCH 13:25
PROVIDERS: PCP Internal Medicine; Visit Provider Internal Medicine
DX: F33.0 Major depressive disorder, recurrent, mild (principal); E03.9 Hypothyroidism, unspecified; J45.909 Unspecified asthma, uncomplicated; L60.2 Onychogryphosis

== ENCOUNTER → 2025-02-24 13:24 | Outpatient (BNVA) | payer OTHER, SELFPAY | PROVIDERS: PCP Internal Medicine; Visit Provider Internal Medicine | DX: F33.0 Major depressive disorder, recurrent, mild (principal); E03.9 Hypothyroidism, unspecified; J45.909 Unspecified asthma, uncomplicated; L60.2 Onychogryphosis; Z13.31 Encounter for screening for depression; Z13.39 Encounter for screening examination for other mental health and behavioral disorders; E78.5 Hyperlipidemia, unspecified | CPT/HCPCS: 96127; 99212 ==